=== PATIENT | female | born 1935 | race Caucasian/White ===

== ENCOUNTER 2017-12-17 22:28 | Emergency (ER) | payer OTHER ==
[2017-12-18] MEDS ORDERED: LEVALBUTEROL 1.25 MG/3 ML NEB ONE (00:45)
[2017-12-18] MEDS ORDERED: NA CHLORIDE 0.9% 1,000 ML ONE (00:45)
[2017-12-18] MEDS ORDERED: METHYLPREDNISOLONE 125 MG INJ ONE (00:45)
[2017-12-18] MEDS ORDERED: IPRATROPIUM BROM 0.5MG/2.5ML ONE (00:45)
[2017-12-18 01:21] LABS: Absolute Monocytes 0.4 K/uL (0.1-1.3); Absolute Neutrophil 6.8 K/uL (1.8-8.0); Basophils % 0.1 % (0-1.3); Hematocrit 38.4 % (36.0-45.0); Lymphocytes % 12.6 % (15.3-44.8); MCH 32.1 pg (27.0-35.0); MCV 96.5 fL (80-100); MPV 7.5 fL (7.6-11.3); Monocytes % 4.4 % (3.3-12.3); RBC Red Blood Cell Count 3.98 M/uL (3.86-4.86)
[2017-12-18 01:27] LABS: Protime INR 1.05
[2017-12-18 01:43] LABS: Bicarbonate 23 mEq/L (21-31); Glucose Level 137 mg/dL (65-120); Sodium Level 131 mEq/L (135-145)
[2017-12-18 01:49] LABS: ALT/SGPT 27 IU/L (10-60); AST/SGOT 27 IU/L (10-42); Albumin 4.3 g/dL (3.2-5.5); Alkaline Phosphatase 93 IU/L (42-121); BUN Blood Urea Nitrogen 23 mg/dL (6-20); Bilirubin Direct 0.1 mg/dL (0-0.2); Bilirubin Total 0.7 mg/dL (0.3-1.2); CKMB Creatine Kinase MB 2.3 ng/ml (0.3-4.0); Creatine Phosphokinase 98 IU/L (22-269); Glomerular Filtration Rate 44 mL/min (=/>90); Magnesium 2.3 mg/dL (1.8-2.5); Protein, Total 7.5 g/dL (6.0-8.3)
[2017-12-18 01:59] LABS: Alcohol Serum/Plasma < 10 mg/dl; Salicylates Level < 4.0 mg/dl (<30)
[2017-12-18 02:13] LABS: Barbiturates NEGATIVE; Benzodiazepines NEGATIVE; Cocaine NEGATIVE; METHAMPHETAM NEGATIVE; Opiates POSITIVE; Phencyclidine NEGATIVE; THC Cannibis NEGATIVE
--- NOTE | 2017-12-18 02:30 | ER ---
Nurse's Notes [facility] Name: Ellie Barnhart Age: 82 yrs Sex: Female : 1935 Arrival Date: 12/17/2017 Time: 22:31 Bed 26 Private MD: Diagnosis: Weakness;Bronchitis, not specified as acute or chronic;Tobacco use;Unspecified kidney failure Presentation: 12/17 22:35 Presenting complaint: EMS states: "Patient has been seeing worms under her skin. ao Patient has been checked and no worms had been found. Patient has a history of mental problem and was here before. Transition of care: patient was not received from another setting of care. Onset of symptoms is unknown. Care prior to arrival: None. 22:35 Method Of Arrival: EMS: [facility] ao 22:35 Acuity: HATTIE 2 ao Historical: - Allergies: 22:49 No Known Allergies; ao - Home Meds: 22:49 alprazolam 1 mg Oral tab 1 tab twice a day [Active]; Aspir-81 81 mg Oral TbEC 1 tab ao once daily [Active]; calcium carbonate 600 mg (1,500 mg) Oral tab [Active]; citalopram 10 mg tab 1 tab once daily [Active]; donepezil 5 mg Oral tab 1 tab once daily [Active]; clopidogrel 75 mg Oral tab 1 tab once daily [Active]; gabapentin 100 mg Oral cap [Active]; garlic 1 mg Oral cap [Active]; omeprazole 40 mg Oral cpDR 1 cap once daily [Active]; simvastatin 20 mg Oral tab 1 tab once daily [Active]; Viberzi 75 mg Oral tab three times a day [Active]; Mucus Relief 400 mg Oral tab 1 tab every 4 hours [Active]; Vitamin D3 Complete 18 mg iron-800 mcg-150 mg Oral tab [Active]; - PMHx: 22:49 ataxic gait; Dementia; Hyperlipidemia; Hypertension; ao - PSHx: 22:49 Unable to obtain; ao - Immunization history:: Adult Immunizations unknown. - Social history:: Smoking status: unknown. - Family history:: not pertinent. Screenin:49 Abuse screen: Denies threats or abuse. Denies injuries from another. Nutritional ao screening: No deficits noted. Tuberculosis screening: No symptoms or risk factors identified. Fall Risk No fall in past 12 months (0 pts). Secondary diagnosis (15 points). Assessment: 22:35 General: Appears in no apparent distress. comfortable, Behavior is inappropriate for ao age. Pain: Denies pain. Neuro: Level of Consciousness is awake, alert, obeys commands, Oriented to person, place. Cardiovascular: Denies chest pain, shortness of breath, Heart tones S1 S2. Respiratory: Airway is patent Respiratory effort is even, unlabored, Respiratory pattern is regular, symmetrical. GI: Abdomen is non-distended. : No signs and/or symptoms were reported regarding the genitourinary system. EENT: No signs and/or symptoms were reported regarding the EENT system. Derm: No signs and/or symptoms reported regarding the dermatologic system. Musculoskeletal: No signs and/or symptoms reported regarding the musculoskeletal system. 23:26 Reassessment: Spoke to Alanis who claims she is the granddaughter. Alanis left her number ao as [phone]. Alanis liven in [place] and would not be able to come to see the patient. Alanis proved me with Ulisess who is patient's son and live in the area. His phone number is [phone]. 12/18 00:30 Reassessment: Patient appears in no apparent distress at this time. No changes from ao previously documented assessment. Patient and/or family updated on plan of care and expected duration. Pain level reassessed. 01:21 Reassessment: Patient appears in no apparent distress at this time. Patient and/or ao family updated on plan of care and expected duration. Pain level reassessed. Patient currently getting a breathing treatment. 02:30 Reassessment: Patient appears in no apparent distress at this time. Patient and/or ao family updated on plan of care and expected duration. Pain level reassessed. 02:30 Reassessment: Patient appears in no apparent distress at this time. Patient and/or ao family updated on plan of care and expected duration. Pain level reassessed. Waiting on son to get patient for discharge. 02:50 Reassessment: Called Isak who is patient's son and stated that he will pick patient in ao about 30 minutes. Vital Signs: 12/17 22:38 BP 106 / 79; Pulse 80; Resp 18; Temp 98.1; Pulse Ox 96% on R/A; Weight 45.36 kg (R); ao Height 5 ft. 5 in. (165.10 cm) (R); Pain 0/10; 23:37 BP 104 / 78; Pulse 82; Resp 16; Pulse Ox 97% on R/A; Pain 0/10; ao 0412 00:30 BP 106 / 74; Pulse 82; Resp 16; Pulse Ox 98% on R/A; Pain 0/10; ao 01:23 BP 102 / 72; Pulse 82; Resp 16; Pulse Ox 100% on Nebulizer Mask; ao 02:30 BP 108 / 80; Pulse 76; Resp 16; Pulse Ox 98% on R/A; Pain 0/10; ao 12/17 22:38 Body Mass Index 16.64 (45.36 kg, 165.10 cm) ao ED Course: 12/17 22:31 Patient arrived in ED. em1 22:38 Triage completed. ao 22:38 Arm band placed on right wrist. Patient placed in an exam room, on a stretcher, on ao pulse oximetry. 22:49 Patient has correct armband on for positive identification. Pulse ox on. NIBP on. ao 23:26 Luis Antonio Talbot, RN is Primary Nurse. ao 12/18 00:10 Eusebio Magallon MD is Attending Physician. nayan 00:20 Inserted saline lock: 20 gauge in right forearm, using aseptic technique. ao 00:52 X-ray completed. Portable x-ray completed in exam room. Patient tolerated procedure kw well. 00:53 XRAY Chest (1 view) In Process Unspecified. EDMS 02:30 Per Roe MD is Referral Physician. nayan 03:55 No provider procedures requiring assistance completed. IV discontinued, intact, ao bleeding controlled, No redness/swelling at site. Pressure dressing applied. Administered Medications: 00:45 Drug: Xopenex 2.5 mg Route: Inhalation; ao 03:04 Follow up: Response: No adverse reaction ao 00:45 Drug: AtroVENT Aerosol 0.5 mg Route: Inhalation; ao 03:04 Follow up: Response: No adverse reaction ao 00:55 Drug: NS 0.9% 1000 ml Route: IV; Rate: 125 ml/hr; Site: right forearm; ao 03:00 Follow up: IV Status: Completed infusion; IV Intake: 1000ml ao 03:05 Follow up: Response: No adverse reaction ao 00:55 Drug: SOLU-Medrol 125 mg Route: IVP; Site: right forearm; ao 03:04 Follow up: Response: No adverse reaction ao Intake: 03:00 IV: 1000ml; Total: 1000ml. ao Outcome: 02:29 Discharge ordered by . nayan 03:55 Discharged to home via wheelchair. ao 03:55 Condition: stable 03:55 Discharge instructions given to patient, roll bucker, Instructed on discharge instructions, follow up and referral plans. Demonstrated understanding of instructions, follow-up care, medications, Prescriptions given X 3. 03:56 Patient left the ED. ao Signatures: Dispatcher [employer] EDEusebio Cyr MD MD cha Martinez, Delta em1 Sirena Mendez Alex, RN RN ao Corrections: (The following items were deleted from the chart) 01:22 04/11 23:37 Reassessment: Patient appears in no apparent distress at this time. No ao changes from previously documented assessment. Patient and/or family updated on plan of care and expected duration. Pain level reassessed. ao
--- NOTE | 2017-12-18 02:30 | EDPHYS ---
Physician Documentation [facility] Name: Ellie Barnhart Age: 82 yrs Sex: Female : 1935 Arrival Date: 12/17/2017 Time: 22:31 Bed 26 Private MD: ED Physician Eusebio Magallon HPI: 12/18 00:16 This 82 yrs old Female presents to ER via EMS with complaints of ams, cough nayan and worms under skin. 00:16 The patient has shortness of breath with light activity. Onset: The symptoms/episode nayan began/occurred 2 day(s) ago. Duration: The symptoms are continuous, and are unchanged since they started. The patient's shortness of breath has no apparent modifying factors. dementia, seeing worms. The patient presents with trouble concentrating. Possible causes: unknown. Severity of symptoms: At their worst the symptoms were mild in the emergency department the symptoms are unchanged. Historical: - Allergies: 12/17 22:49 No Known Allergies; ao - Home Meds: 22:49 alprazolam 1 mg Oral tab 1 tab twice a day [Active]; Aspir-81 81 mg Oral TbEC 1 tab ao once daily [Active]; calcium carbonate 600 mg (1,500 mg) Oral tab [Active]; citalopram 10 mg tab 1 tab once daily [Active]; donepezil 5 mg Oral tab 1 tab once daily [Active]; clopidogrel 75 mg Oral tab 1 tab once daily [Active]; gabapentin 100 mg Oral cap [Active]; garlic 1 mg Oral cap [Active]; omeprazole 40 mg Oral cpDR 1 cap once daily [Active]; simvastatin 20 mg Oral tab 1 tab once daily [Active]; Viberzi 75 mg Oral tab three times a day [Active]; Mucus Relief 400 mg Oral tab 1 tab every 4 hours [Active]; Vitamin D3 Complete 18 mg iron-800 mcg-150 mg Oral tab [Active]; - PMHx: 22:49 ataxic gait; Dementia; Hyperlipidemia; Hypertension; ao - PSHx: 22:49 Unable to obtain; ao - Immunization history:: Adult Immunizations unknown. - Social history:: Smoking status: unknown. - Family history:: not pertinent. ROS: 12/18 00:16 Constitutional: Negative for fever, chills, and weight loss, Eyes: Negative for injury, nayan pain, redness, and discharge, ENT: Negative for injury, pain, and discharge, Neck: Negative for injury, pain, and swelling, Cardiovascular: Negative for chest pain, palpitations, and edema, Abdomen/GI: Negative for abdominal pain, nausea, vomiting, diarrhea, and constipation, Back: Negative for injury and pain, : Negative for injury, bleeding, discharge, and swelling, MS/Extremity: Negative for injury and deformity, Skin: Negative for injury, rash, and discoloration, Neuro: Negative for headache, weakness, numbness, tingling, and seizure. Respiratory: Positive for cough, wheezing, expiratory. Psych: Positive for visual hallucinations. Exam: 00:16 Constitutional: This is a well developed, well nourished patient who is awake, alert, nayan and in no acute distress. Head/Face: Normocephalic, atraumatic. Eyes: Pupils equal round and reactive to light, extra-ocular motions intact. Lids and lashes normal. Conjunctiva and sclera are non-icteric and not injected. Cornea within normal limits. Periorbital areas with no swelling, redness, or edema. ENT: Nares patent. No nasal discharge, no septal abnormalities noted. Tympanic membranes are normal and external auditory canals are clear. Oropharynx with no redness, swelling, or masses, exudates, or evidence of obstruction, uvula midline. Mucous membranes moist. Neck: Trachea midline, no thyromegaly or masses palpated, and no cervical lymphadenopathy. Supple, full range of motion without nuchal rigidity, or vertebral point tenderness. No Meningismus. Chest/axilla: Normal chest wall appearance and motion. Nontender with no deformity. No lesions are appreciated. Cardiovascular: Regular rate and rhythm with a normal S1 and S2. No gallops, murmurs, or rubs. Normal PMI, no JVD. No pulse deficits. Abdomen/GI: Soft, non-tender, with normal bowel sounds. No distension or tympany. No guarding or rebound. No evidence of tenderness throughout. Back: No spinal tenderness. No costovertebral tenderness. Full range of motion. Female : Normal external genitalia. Skin: Warm, dry with normal turgor. Normal color with no rashes, no lesions, and no evidence of cellulitis. MS/ Extremity: Pulses equal, no cyanosis. Neurovascular intact. Full, normal range of motion. 00:16 Respiratory: the patient does not display signs of respiratory distress, Respirations: labored breathing, that is mild, Breath sounds: decreased breath sounds, rhonchi, wheezing: expiratory 00:16 Neuro: Orientation: appropriate for stated age, Mentation: appropriate for stated age, nayan no acute changes, Memory: immediate memory is impaired, remote memory is impaired, recent memory the patient can't recall what they had for dinner last night, Cerebellar function: unable to test, Motor: moves all fours, Sensation: no obvious gross deficits, appropriate no acute changes, Gait: not tested. Vital Signs: 12/17 22:38 BP 106 / 79; Pulse 80; Resp 18; Temp 98.1; Pulse Ox 96% on R/A; Weight 45.36 kg (R); ao Height 5 ft. 5 in. (165.10 cm) (R); Pain 0/10; 23:37 BP 104 / 78; Pulse 82; Resp 16; Pulse Ox 97% on R/A; Pain 0/10; ao 12/18 00:30 BP 106 / 74; Pulse 82; Resp 16; Pulse Ox 98% on R/A; Pain 0/10; ao 01:23 BP 102 / 72; Pulse 82; Resp 16; Pulse Ox 100% on Nebulizer Mask; ao 02:30 BP 108 / 80; Pulse 76; Resp 16; Pulse Ox 98% on R/A; Pain 0/10; ao 12/17 22:38 Body Mass Index 16.64 (45.36 kg, 165.10 cm) ao MDM: 00:10 Patient medically screened. [facility] 00:16 Data reviewed: vital signs, nurses notes, lab test result(s), EKG, radiologic studies, nayan plain films. 12/18 00:23 Order name: Basic Metabolic Panel; Complete Time: 02:24 [facility] 12/18 00:23 Order name: BNP; Complete Time: 02:24 nayan 12/18 00:23 Order name: CBC with Diff; Complete Time: 01:36 [facility] 12/18 00:23 Order name: Ckmb; Complete Time: 02:24 [facility] 12/18 00:23 Order name: CPK; Complete Time: 02:24 [facility] 12/18 00:23 Order name: LFT's; Complete Time: 02:24 [facility] 12/18 00:23 Order name: Magnesium; Complete Time: 02:24 [facility] 12/19 99:23 Order name: PT-INR; Complete Time: 02:24 [facility] 12/19 99:23 Order name: Ptt, Activated; Complete Time: 02:24 [facility] 12/19 99:23 Order name: Troponin (emerg Dept Use Only); Complete Time: 02:24 [facility] 12/19 99:23 Order name: Acetaminophen; Complete Time: 02:24 [facility] 12/19 99:23 Order name: ETOH Level; Complete Time: 02:24 [facility] 12/19 99:23 Order name: Salicylate; Complete Time: 02:24 [facility] 12/19 99:23 Order name: Urine Drug Screen 12/18: Order name: XRAY Chest (1 view) 12/18: Order name: EKG; Complete Time: 00:28 [facility] 12/19 99:23 Order name: Cardiac monitoring; Complete Time: 01:20 [facility] 12/19 99:23 Order name: EKG - Nurse/Tech; Complete Time: 03:01 [facility] 12/19 99:23 Order name: IV Saline Lock; Complete Time: 01:20 [facility] 12/18 00:23 Order name: Labs collected and sent; Complete Time: 01:20 [facility] 12/18 00:23 Order name: O2 Per Protocol; Complete Time: 01:20 [facility] 12/18 00:23 Order name: O2 Sat Monitoring; Complete Time: 01:21 [facility] 12/18 00:23 Order name: Urine Dipstick-Ancillary (obtain specimen); Complete Time: 02:16 [facility] 12/18 02:17 Order name: Urine Dipstick--Ancillary (enter results) em1 Administered Medications: 00:45 Drug: Xopenex 2.5 mg Route: Inhalation; ao 03:04 Follow up: Response: No adverse reaction ao 00:45 Drug: AtroVENT Aerosol 0.5 mg Route: Inhalation; ao 03:04 Follow up: Response: No adverse reaction ao 00:55 Drug: NS 0.9% 1000 ml Route: IV; Rate: 125 ml/hr; Site: right forearm; ao 03:00 Follow up: IV Status: Completed infusion; IV Intake: 1000ml ao 03:05 Follow up: Response: No adverse reaction ao 00:55 Drug: SOLU-Medrol 125 mg Route: IVP; Site: right forearm; ao 03:04 Follow up: Response: No adverse reaction ao Disposition: 12/18/17 02:29 Discharged to Home. Impression: Weakness, Bronchitis, not specified as acute or chronic, Tobacco use, Unspecified kidney failure. - Condition is Stable. - Discharge Instructions: Acute Bronchitis, How to Use an Inhaler, Smoking Cessation, Smoking Hazards, Upper Respiratory Infection, Adult, Weakness, Smoking Cessation, Tips For Success, Weakness, [id number]. - Prescriptions for Zithromax Z- [place] 250 mg Oral Tablet - take 1 tablet by ORAL route as directed for 5 days Day 1 - take two (2) tablets one time. Day 2, 3, 4 , 5 take one (1) tablet once daily.; 6 tablet. Medrol ([place]) 4 mg Oral Tablets, Dose Pack - take 1 tablet by ORAL route as directed - follow package instructions; 1 packet. Albuterol Sulfate 90 mcg/actuation - inhale 1-2 puff by INHALATION route every 4-6 hours; 1 Inhaler. - Medication Reconciliation Form, Thank You Letter, Antibiotic Education, Prescription Opioid Use form. - Follow up: Private Physician; When: 2 - 3 days; Reason: Recheck today's complaints, Continuance of care, Re-evaluation by your physician. Follow up: Per Roe MD; When: 2 - 3 days; Reason: Recheck today's complaints, Re-evaluation by your physician. - Problem is new. - Symptoms have improved. Signatures: Dispatcher [employer] Eusebio Mack MD MD cha Ortiz, Alex, RN RN ao
[2017-12-18 03:03] LABS: Urine Blood NEGATIVE (NEG); Urine Glucose NEGATIVE (NEG); Urine Protein 1+ (NEG); Urine Specific Gravity >1.030 (1.005-1.030)
[2017-12-18 04:01] VITALS: TEMP 98.1
[2017-12-18 04:05] VITALS: BP 108/80; O2SAT 98
--- NOTE | 2017-12-18 07:00 | EKG ---
Test Date: 2017-12-18 Test Time: 02:52:44 Pharmacy Specialist: ASHLY MEASUREMENT RESULTS: Intervals: Rate: 77 WI: 140 QRSD: 72 QT: 386 QTc: 436 [place]: P: 84 WI: 140 QRS: 80 T: 76 INTERPRETIVE STATEMENTS: Normal sinus rhythm Normal ECG Compared to ECG 01/03/2017 11:44:52 No significant changes Electronically Signed On 12-18-17 06:59:57 CDT by Álvaro Orellana
--- NOTE | 2017-12-18 08:09 | RAD REPORT ---
EXAM DESCRIPTION: Magy Single View12/18/2017 12:54 am CLINICAL HISTORY: Cough COMPARISON: February 2017 FINDINGS: The lungs are hyperaerated. A calcified granuloma is present within the right lung base. The lungs appear clear of acute infiltrate. The heart is normal size IMPRESSION: COPD without visualization of an acute abnormality
--- NOTE | 2017-12-18 15:31 | EKG ---
Test Date: 2017-12-18 Test Time: 02:56:00 Hotel Breakfast Attendant: ASHLY MEASUREMENT RESULTS: Intervals: Rate: 73 TX: 138 QRSD: 72 QT: 394 QTc: 434 [place]: P: 85 TX: 138 QRS: 82 T: 84 INTERPRETIVE STATEMENTS: Normal sinus rhythm Normal ECG Compared to ECG 12/18/2017 02:52:44 No significant changes Electronically Signed On 12-18-17 15:28:59 CDT by Adam Messer
== END 2017-12-18 03:56 | disposition home or self-care (01) ==
LOC: ER 22:28
DX: J40 Bronchitis, not specified as acute or chronic (principal); N19 Unspecified kidney failure; I10 Essential (primary) hypertension; E78.5 Hyperlipidemia, unspecified; F03.90 Unspecified dementia, unspecified severity, without behavioral disturbance, psychotic disturbance, mood disturbance, and anxiety; Z72.0 Tobacco use
CPT/HCPCS: 36415; 71045; 80048; 80076; 80307 ×8; 80320; 80329 ×2; 81003; 82550; 82553; 83735; 83880; 84484; 85025; 85610; 85730; 93005 ×2; 96361; 96374; 99284; J2930; J7030

== ENCOUNTER 2018-05-01 03:41 | Emergency (ER) | payer OTHER ==
[2018-05-01] MEDS ORDERED: LIDOCAINE 1% W/EPI 1:100,000 MDV 50 ML VIAL ONE (04:17)
[2018-05-01] MEDS ORDERED: TETANUS & DIPHTHERIA TOX,ADULT 0.5 ML VIAL ONE (04:18)
--- NOTE | 2018-05-01 05:23 | ER ---
Nurse's Notes [facility] Name: Ellie Barnhart Age: 83 yrs Sex: Female : 1935 Arrival Date: 05/01/2018 Time: 03:42 Bed 17 Private MD: Diagnosis: Laceration without foreign body of other part of head Presentation: 05/01 03:55 Presenting complaint: Patient states: Pt states she fell out of bed and hit her head, ea denies LOC. Daughter reports "goose egg on the back of the head and a cut". Transition of care: patient was not received from another setting of care. Onset of symptoms was May 01, 2018. Risk Assessment: Do you want to hurt yourself or someone else? Patient reports no desire to harm self or others. Initial Sepsis Screen: Does the patient meet any 2 criteria? No. Patient's initial sepsis screen is negative. Does the patient have a suspected source of infection? No. Patient's initial sepsis screen is negative. Care prior to arrival: daughter states "we put pressure on the back of her head to stop the bleeding". 03:55 Method Of Arrival: Wheelchair ea 03:55 Acuity: HATTIE 3 ea 03:55 Mechanism of Injury: Fall bed onto floor. Trauma event details: Injury occurred in the [facility], Injury occurred: at home. Injury occurred: May 01, 2018 Injury occurred at: 03:00. Triage Assessment: 04:01 General: Appears in no apparent distress. Behavior is calm, cooperative, appropriate ea for age. Pain: Denies pain. Neuro: Level of Consciousness is awake, alert, obeys commands, Oriented to person, place, time, situation. Cardiovascular: Heart tones S1 S2 present Patient's skin is warm and dry. Respiratory: Airway is patent Respiratory effort is even, unlabored, Respiratory pattern is regular, symmetrical, Breath sounds are clear bilaterally. GI: No signs and/or symptoms were reported involving the gastrointestinal system. Bowel sounds present X 4 quads. : No signs and/or symptoms were reported regarding the genitourinary system. Derm: Skin is pink, warm \\T\\ dry. Musculoskeletal: Circulation, motion, and sensation intact. Injury Description: Laceration sustained to left side of the back of head is 0.5 to 2.5 cm long, was sustained 30-60 minutes ago. a small amount of bleeding noted at this time. Trauma Activation: Alert Physician: ED Physician; Name: ; Notified At: ; Arrived At: Physician: General Surgeon; Name: ; Notified At: ; Arrived At: Physician: Radiology; Name: ; Notified At: ; Arrived At: Physician: Respiratory; Name: ; Notified At: ; Arrived At: Physician: Lab; Name: ; Notified At: ; Arrived At: Historical: - Allergies: 03:55 Codeine; ea - Home Meds: 03:54 Vitamin D3 Complete 18 mg iron-800 mcg-150 mg Oral tab [Active]; Viberzi 75 mg Oral tab ea three times a day [Active]; clopidogrel 75 mg Oral tab 1 tab once daily [Active]; alprazolam 1 mg Oral tab 1 tab twice a day [Active]; Aspir-81 81 mg Oral TbEC 1 tab once daily [Active]; donepezil 5 mg Oral tab 1 tab once daily [Active]; citalopram 10 mg tab 1 tab once daily [Active]; simvastatin 20 mg Oral tab 1 tab once daily [Active]; omeprazole 40 mg Oral cpDR 1 cap once daily [Active]; Mucus Relief 400 mg Oral tab 1 tab every 4 hours [Active]; calcium carbonate 600 mg (1,500 mg) Oral tab [Active]; gabapentin 100 mg Oral cap [Active]; garlic 1 mg Oral cap [Active]; - PMHx: 03:54 Hypertension; Hyperlipidemia; Dementia; ataxic gait; ea - PSHx: 03:54 Unable to obtain; ea - Immunization history:: Adult Immunizations up to date. - Social history:: Smoking status: Patient/guardian denies using tobacco. - Immunization history: Last tetanus immunization: unknown. - Ebola Screening: : No symptoms or risks identified at this time. Screenin:55 Abuse screen: Denies threats or abuse. Nutritional screening: No deficits noted. ea Tuberculosis screening: No symptoms or risk factors identified. Fall Risk Fall in past 12 months (25 points). Primary Survey: 03:55 Breathing/Chest: Respiratory pattern: regular, Respiratory effort: spontaneous, ea unlabored, Breath sounds: clear, bilaterally. Chest inspection: symmetrical rise and fall of the chest. Circulation: Heart tones present. Disability Alert. 04:55 Reassessment Airway Airway Patent Breathing/Chest Respiratory pattern Regular ea Respiratory effort Spontaneous Unlabored Circulation Color [place] Temperature Warm. Secondary Survey: 03:55 Gastrointestinal: Abdomen is soft, Bowel sounds present in all quadrants. : No signs ea and/or symptoms were reported regarding the genitourinary system. Musculoskeletal: Circulation, motion, and sensation intact. Injury Description: Laceration sustained to left side of the back of head is 0.5 to 2.5 cm long, was sustained 30-60 minutes ago. Assessment: 03:55 General: Appears in no apparent distress. Behavior is calm, cooperative, appropriate ea for age. Pain: Denies pain. Neuro: Level of Consciousness is awake, alert, obeys commands, Oriented to person, place, time, situation. EENT: No signs and/or symptoms were reported regarding the EENT system. Cardiovascular: Heart tones S1 S2 present Patient's skin is warm and dry. Respiratory: Airway is patent Respiratory effort is even, unlabored, Respiratory pattern is regular, symmetrical, Breath sounds are clear bilaterally. GI: No signs and/or symptoms were reported involving the gastrointestinal system. Abdomen is non-distended, Bowel sounds present X 4 quads. Derm: Skin is pink, warm \\T\\ dry. 04:55 Reassessment: Patient and/or family updated on plan of care and expected duration. Pain ea level reassessed. Patient is alert, oriented x 3, equal unlabored respirations, skin warm/dry/pink. 05:32 Reassessment: Patient and/or family updated on plan of care and expected duration. Pain ea level reassessed. Patient is alert, oriented x 3, equal unlabored respirations, skin warm/dry/pink. Discharge instructions given to patient and pt's daughter both verbalized the understanding of discharge instructions. Vital Signs: 04:03 BP 115 / 68; Pulse 67; Resp 16; Temp 98; Pulse Ox 97% ; Weight 45.36 kg; Height 5 ft. 5 ea in. (165.10 cm); Pain 0/10; 05:16 BP 108 / 65; Pulse 70; Resp 18; Temp 97.8(O); Pulse Ox 98% ; Pain 0/10; ea 04:03 Body Mass Index 16.64 (45.36 kg, 165.10 cm) ea [place] Coma Score: 03:55 Eye Response: spontaneous(4). Verbal Response: oriented(5). Motor Response: obeys ea commands(6). Total: 15. 05:16 Eye Response: spontaneous(4). Verbal Response: oriented(5). Motor Response: obeys ea commands(6). Total: 15. Trauma Score (Adult): 03:55 Eye Response: spontaneous(1); Verbal Response: oriented(1); Motor Response: obeys ea commands(2); Systolic BP: > 89 mm Hg(4); Respiratory Rate: 10 to 29 per min(4); [place] Score: 15; Trauma Score: 12 ED Course: 03:42 Patient arrived in ED. ds1 03:51 Alison Olivarez, ALBARO is Primary Nurse. ea 03:55 Arm band placed on right wrist. ea 03:55 Patient has correct armband on for positive identification. Placed in gown. Bed in low ea position. Call light in reach. Side rails up X2. 03:55 Patient maintains SpO2 saturation greater than 95% on room air. ea 03:55 Thermoregulation: warm blanket given to patient. ea 04:00 Fabrizio Bueno MD is Attending Physician. gs 04:01 Triage completed. ea 04:[address] via stretcher. kw1 04:24 CT Head Brain wo Cont In Process Unspecified. EDMS 04:25 CT completed. Patient tolerated procedure well. Patient moved back from CT. kw1 05:34 Assist provider with laceration repair on left side of the back of head that was ea between 2.6 to 7.5 cm using sutures. Set up tray. Performed by Fabrizio Bueno MD Dressed with 4X4s, Patient tolerated well. Patient did not have IV access during this emergency room visit. Administered Medications: 05:13 Drug: Lidocaine-Epinephrine -1%: (1:100,000) 5 ml {Note: administered by physician .} ea Volume: 20 ml; Route: Infiltration; 05:13 Drug: Tetanus-Diphtheria Toxoid Adult 0.5 ml {Counter Roller: [employer]. Exp: ea 05/28/2019. Lot #: [id number]. } Route: IM; Site: right deltoid; 05:35 Follow up: Response: No adverse reaction ea Intake: 05:36 PO: 0ml; Total: 0ml. ea Outcome: 05:22 Discharge ordered by . gs 05:35 Discharged to home via wheelchair, with family. ea 05:35 Condition: improved 05:35 Discharge instructions given to patient, family, Instructed on discharge instructions, follow up and referral plans. Demonstrated understanding of instructions, follow-up care. 05:36 Patient's length of stay was not longer than 2 hours. jose 05:36 Patient left the ED. jose Signatures: Dispatcher [employer] EDKY Harmony Schulte Alison Mendez RN RN ea Starr, Gregory, MD MD gs Wilhelm, Kimberly kw1 Corrections: (The following items were deleted from the chart) 05:36 05:16 BP 108 / 65; Pulse 70bpm; Resp 18bpm; Pulse Ox 98%; Pain 0/10; ea jose
--- NOTE | 2018-05-01 05:23 | EDPHYS ---
Physician Documentation [facility] Name: Ellie Barnhart Age: 83 yrs Sex: Female : 1935 Arrival Date: 05/01/2018 Time: 03:42 Bed 17 Private MD: ED Physician Fabrizio Bueno HPI: 05/01 05:19 This 83 yrs old Female presents to ER via Wheelchair with complaints of Fall gs Injury. 05:19 Details of fall: The patient fell from a supine position, out of bed. Onset: The gs symptoms/episode began/occurred acutely, just prior to arrival. Associated injuries: The patient sustained injury to the head, laceration, 3 cm(s), of the left side of the back of head. Severity of symptoms: At their worst the symptoms were moderate, in the emergency department the symptoms are unchanged. The patient has not experienced similar symptoms in the past. The patient has not recently seen a physician. no loc. Historical: - Allergies: 03:55 Codeine; ea - Home Meds: 03:54 Vitamin D3 Complete 18 mg iron-800 mcg-150 mg Oral tab [Active]; Viberzi 75 mg Oral tab ea three times a day [Active]; clopidogrel 75 mg Oral tab 1 tab once daily [Active]; alprazolam 1 mg Oral tab 1 tab twice a day [Active]; Aspir-81 81 mg Oral TbEC 1 tab once daily [Active]; donepezil 5 mg Oral tab 1 tab once daily [Active]; citalopram 10 mg tab 1 tab once daily [Active]; simvastatin 20 mg Oral tab 1 tab once daily [Active]; omeprazole 40 mg Oral cpDR 1 cap once daily [Active]; Mucus Relief 400 mg Oral tab 1 tab every 4 hours [Active]; calcium carbonate 600 mg (1,500 mg) Oral tab [Active]; gabapentin 100 mg Oral cap [Active]; garlic 1 mg Oral cap [Active]; - PMHx: 03:54 Hypertension; Hyperlipidemia; Dementia; ataxic gait; ea - PSHx: 03:54 Unable to obtain; ea - Immunization history:: Adult Immunizations up to date. - Social history:: Smoking status: Patient/guardian denies using tobacco. - Immunization history: Last tetanus immunization: unknown. - Ebola Screening: : No symptoms or risks identified at this time. ROS: 05:19 All other systems are negative. gs Exam: 05:19 Eyes: Pupils equal round and reactive to light, extra-ocular motions intact. Lids and gs lashes normal. Conjunctiva and sclera are non-icteric and not injected. Cornea within normal limits. Periorbital areas with no swelling, redness, or edema. ENT: Nares patent. No nasal discharge, no septal abnormalities noted. Tympanic membranes are normal and external auditory canals are clear. Oropharynx with no redness, swelling, or masses, exudates, or evidence of obstruction, uvula midline. Mucous membranes moist. Neck: Trachea midline, no thyromegaly or masses palpated, and no cervical lymphadenopathy. Supple, full range of motion without nuchal rigidity, or vertebral point tenderness. No Meningismus. Chest/axilla: Normal chest wall appearance and motion. Nontender with no deformity. No lesions are appreciated. Cardiovascular: Regular rate and rhythm with a normal S1 and S2. No gallops, murmurs, or rubs. Normal PMI, no JVD. No pulse deficits. Respiratory: Lungs have equal breath sounds bilaterally, clear to auscultation and percussion. No rales, rhonchi or wheezes noted. No increased work of breathing, no retractions or nasal flaring. Abdomen/GI: Soft, non-tender, with normal bowel sounds. No distension or tympany. No guarding or rebound. No evidence of tenderness throughout. Back: No spinal tenderness. No costovertebral tenderness. Full range of motion. Skin: Warm, dry with normal turgor. Normal color with no rashes, no lesions, and no evidence of cellulitis. MS/ Extremity: Pulses equal, no cyanosis. Neurovascular intact. Full, normal range of motion. Neuro: Awake and alert, GCS 15, oriented to person, place, time, and situation. Cranial nerves II-XII grossly intact. Motor strength 5/5 in all extremities. Sensory grossly intact. Cerebellar exam normal. Normal gait. 05:19 Constitutional: The patient appears alert, awake. 05:19 Head/face: Noted is a laceration(s), that is deep, 3 cm(s), of the left side of the back of head. Vital Signs: 04:03 BP 115 / 68; Pulse 67; Resp 16; Temp 98; Pulse Ox 97% ; Weight 45.36 kg; Height 5 ft. 5 ea in. (165.10 cm); Pain 0/10; 05:16 BP 108 / 65; Pulse 70; Resp 18; Temp 97.8(O); Pulse Ox 98% ; Pain 0/10; ea 04:03 Body Mass Index 16.64 (45.36 kg, 165.10 cm) ea [place] Coma Score: 03:55 Eye Response: spontaneous(4). Verbal Response: oriented(5). Motor Response: obeys ea commands(6). Total: 15. 05:16 Eye Response: spontaneous(4). Verbal Response: oriented(5). Motor Response: obeys ea commands(6). Total: 15. Trauma Score (Adult): 03:55 Eye Response: spontaneous(1); Verbal Response: oriented(1); Motor Response: obeys ea commands(2); Systolic BP: > 89 mm Hg(4); Respiratory Rate: 10 to 29 per min(4); [place] Score: 15; Trauma Score: 12 Laceration: 05:19 Wound Repair of 3cm ( 1.2in ) subcutaneous laceration to left side of the back of head. gs Distal neuro/vascular/tendon intact. Anesthesia: Local anesthetic administered with 5 mls of 1% lidocaine w/ Epi. Wound prep: Simple cleansing with betadine, Wound irrigation with saline. Skin closed with 6 4-0 Prolene using simple sutures and sterile technique. Dressed with pressure dressing. Patient tolerated well. MDM: 04:00 Patient medically screened. gs 05:19 Differential diagnosis: closed head injury, contusion, laceration. Data reviewed: vital gs signs, nurses notes. Response to treatment: the patient's symptoms have markedly improved after treatment. 05/01 04:04 Order name: CT Head Brain wo Cont gs Administered Medications: 05:13 Drug: Lidocaine-Epinephrine -1%: (1:100,000) 5 ml {Note: administered by physician .} ea Volume: 20 ml; Route: Infiltration; 05:13 Drug: Tetanus-Diphtheria Toxoid Adult 0.5 ml {Cryptoanalysis Teacher: [employer]. Exp: ea 05/28/2019. Lot #: [id number]. } Route: IM; Site: right deltoid; 05:35 Follow up: Response: No adverse reaction ea Disposition: 05/01/18 05:22 Discharged to Home. Impression: Laceration without foreign body of other part of head. - Condition is Stable. - Discharge Instructions: Laceration Care, Adult, [id number]. - Medication Reconciliation Form, Thank You Letter, Antibiotic Education, Prescription Opioid Use form. - Follow up: Private Physician; When: 7 - 10 days; Reason: Staple/Suture removal. Signatures: Dispatcher [employer] Alison Benz RN RN ea Starr, Gregory, MD MD gs Corrections: (The following items were deleted from the chart) 05:22 05:22 05/01/2018 05:22 Discharged to Home. Impression: Laceration without foreign body gs of other part of head. Condition is Stable. Forms are Medication Reconciliation Form, Thank You Letter, Antibiotic Education, Prescription Opioid Use. Follow up: Private Physician; When: 2 - 3 days; Reason: Re-evaluation by your physician. 05:36 05:22 05/01/2018 05:22 Discharged to Home. Impression: Laceration without foreign body ea of other part of head. Condition is Stable. Discharge Instructions: Laceration Care, Adult, [id number]. Forms are Medication Reconciliation Form, Thank You Letter, Antibiotic Education, Prescription Opioid Use. Follow up: Private Physician; When: 7 - 10 days; Reason: Staple/Suture removal.
[2018-05-01 05:45] VITALS: BP 108/65; TEMP 97.8; O2SAT 98
--- NOTE | 2018-05-01 09:11 | RAD REPORT ---
EXAM DESCRIPTION: CT - Head Brain Wo Cont - 05/01/2018 5:06 am CLINICAL HISTORY: Head injury status post fall COMPARISON: February 2017 TECHNIQUE: Computed axial tomography of the head was obtained. IV contrast was not requested. A preliminary report was generated by [employer] and reviewed prior to this dictation All CT scans are performed using dose optimization technique as appropriate and may include automated exposure control or mA/KV adjustment according to patient size. FINDINGS: Left parietal scalp swelling is present. An underlying skull fracture is not seen An intracranial bleed is not seen . The ventricles are normal in caliber. No extra-axial fluid collection is noted. Moderate low-density areas within periventricular, deep and subcortical white matter likely represent ischemic changes secondary to small vessel disease. Fluid within the sinuses/ mastoids is not seen. IMPRESSION: No acute intracranial abnormality is seen. If patient's symptoms persist MRI of the bra in would be recommended.
== END 2018-05-01 05:36 | disposition home or self-care (01) ==
LOC: ER 03:41
PROC: 0JQ00ZZ Repair Scalp Subcutaneous Tissue and Fascia, Open Approach (ICD-10-PCS; principal; 2018-05-01)
DX: S01.81XA Laceration without foreign body of other part of head, initial encounter (principal); W06.XXXA Fall from bed, initial encounter; Y92.003 Bedroom of unspecified non-institutional (private) residence as the place of occurrence of the external cause; Z23 Encounter for immunization; I10 Essential (primary) hypertension; E78.5 Hyperlipidemia, unspecified; F03.90 Unspecified dementia, unspecified severity, without behavioral disturbance, psychotic disturbance, mood disturbance, and anxiety; R27.0 Ataxia, unspecified
CPT/HCPCS: 70450; 90714; 99284

== ENCOUNTER 2018-09-10 22:20 | Observation (INO) | payer OTHER ==
[2018-09-10] MEDS ORDERED: NA CHLORIDE 0.9% 1,000 ML ONE (23:01)
[2018-09-10 23:26] LABS: Absolute Lymphocytes (CBC) 1.2 K/uL (0.7-4.9); Absolute Monocytes 0.2 K/uL (0.1-1.3); Absolute Neutrophil 1.7 K/uL (1.8-8.0); Basophils % 0.5 % (0-1.3); Hematocrit 29.9 % (36.0-45.0); Lymphocytes % 37.3 % (15.3-44.8); MPV 7.6 fL (7.6-11.3); Monocytes % 7.1 % (3.3-12.3); Protime INR 1.03; RBC Red Blood Cell Count 3.95 M/uL (3.86-4.86)
[2018-09-10] MEDS ORDERED: METHYLPREDNISOLONE 125 MG INJ ONE (23:35)
[2018-09-10] MEDS ORDERED: AZITHROMYCIN 500 MG/250 ML BAG ONE (23:35)
[2018-09-10] MEDS ORDERED: CEFTRIAXONE/SWI 1gm 1 GM/10 ML SYR ONE (23:35)
[2018-09-10] MEDS ORDERED: ALBUTEROL 2.5 MG/3 ML NEB SOL ONE (23:36)
[2018-09-10] MEDS ORDERED: IPRATROPIUM BROM 0.5MG/2.5ML ONE (23:36)
[2018-09-10] MEDS ORDERED: FAMOTIDINE 20 MG/2 ML VIAL IV ONE (23:37)
[2018-09-10 23:45] LABS: ALT/SGPT 14 U/L (12-78); AST/SGOT 19 U/L (15-37); Albumin 3.8 g/dL (3.4-5.0); Alkaline Phosphatase 110 U/L (45-117); BUN Blood Urea Nitrogen 11 mg/dL (7-18); Bicarbonate 25 mmol/L (21-32); Bilirubin Direct 0.1 mg/dL (0-0.2); Bilirubin Total 0.4 mg/dL (0.2-1.0); Glucose Level 86 mg/dL (74-106); Lipase 106 U/L (73-393); Magnesium 2.3 mg/dL (1.8-2.4); NT PRO-BNP 68 pg/mL (<450); Potassium 4.3 mmol/L (3.5-5.1); Protein, Total 7.3 g/dL (6.4-8.2); Sodium Level 142 mmol/L (136-145); Troponin (Emerg Dept Use Only) < 0.02 ng/mL (0.0-0.045)
--- NOTE | 2018-09-10 23:49 | ER ---
Nurse's Notes [facility] Name: Ellie Barnhart Age: 83 yrs Sex: Female : 1935 Arrival Date: 09/10/2018 Time: 22:22 Bed 7 Private MD: Diagnosis: Chronic obstructive pulmonary disease with (acute) exacerbation;Altered mental status, unspecified;Dementia in other diseases classified elsewhere;Anemia, unspecified Presentation: 09/10 22:29 Presenting complaint: EMS states: "the daughter said the patient has persistent cough ca1 <72 hours. The son maryjo gave 2 tabs of her anti-anxiety medication 2 hours ago, prescribed dose is at 1/2 tab". Transition of care: patient was not received from another setting of care. Onset of symptoms was September 10, 2018. Risk Assessment: Do you want to hurt yourself or someone else? Patient reports no desire to harm self or others. Initial Sepsis Screen: Does the patient meet any 2 criteria? No. Patient's initial sepsis screen is negative. Does the patient have a suspected source of infection? Yes: Productive cough/pneumonia. Care prior to arrival: Glucose check: 90. 22:29 Method Of Arrival: EMS: [facility] ca1 22:29 Acuity: HATTIE 3 ca1 Historical: - Allergies: 22:36 Codeine; ca1 - Home Meds: 09/11 00:29 alprazolam 1 mg Oral tab 1 tab twice a day [Active]; Aspir-81 81 mg Oral TbEC 1 tab ca1 once daily [Active]; calcium carbonate 600 mg (1,500 mg) Oral tab [Active]; citalopram 10 mg tab 1 tab once daily [Active]; clopidogrel 75 mg Oral tab 1 tab once daily [Active]; donepezil 5 mg Oral tab 1 tab once daily [Active]; gabapentin 100 mg Oral cap [Active]; garlic 1 mg Oral cap [Active]; Mucus Relief 400 mg Oral tab 1 tab every 4 hours [Active]; omeprazole 40 mg Oral cpDR 1 cap once daily [Active]; simvastatin 20 mg Oral tab 1 tab once daily [Active]; Viberzi 75 mg Oral tab three times a day [Active]; Vitamin D3 Complete 18 mg iron-800 mcg-150 mg Oral tab [Active]; - PMHx: 09/10 22:36 ataxic gait; Dementia; Hyperlipidemia; Hypertension; ca1 09/11 00:23 COPD; ca1 - Immunization history:: Flu vaccine is up to date. - Social history:: Smoking status: Patient uses tobacco products. - Ebola Screening: : No symptoms or risks identified at this time. - Family history:: not pertinent. Screenin/03 22:36 Abuse screen: Denies threats or abuse. Denies injuries from another. Nutritional ca1 screening: No deficits noted. Tuberculosis screening: No symptoms or risk factors identified. Fall Risk Secondary diagnosis (15 points) dementia, Gait- Weak (10 pts.). Assessment: 22:36 General: Appears in no apparent distress. Behavior is calm, cooperative, drowsy. ca1 General:. Pain: Denies pain. Neuro: Level of Consciousness is awake, alert, obeys commands, Oriented to person, place, time, situation, Furnace Repairer are equal bilaterally Moves all extremities. Speech is normal, Facial symmetry appears normal, Pupils are PERRLA, Intact. Cardiovascular: Heart tones S1 S2 present Capillary refill < 3 seconds Patient's skin is warm and dry. Respiratory: Airway is patent Trachea midline Respiratory effort is even, unlabored, Respiratory pattern is Breath sounds are coarse Denies cough, shortness of breath. GI: Abdomen is flat, non-distended, Bowel sounds present X 4 quads. Abd is soft and non tender X 4 quads. : No signs and/or symptoms were reported regarding the genitourinary system. EENT: No signs and/or symptoms were reported regarding the EENT system. Derm: Skin is intact, is thin, Skin is pink, warm \\T\\ dry. Musculoskeletal: Circulation, motion, and sensation intact. Capillary refill < 3 seconds. 23:00 Reassessment: Patient's daughter, Mague Dejesus, called to give information about lp1 patient; States to call for any further concerns at [phone]. 23:40 Reassessment: Patient appears in no apparent distress at this time. Patient moves ca1 around on bed, complains of being cold. Provided warmed blanket, and a pillow. Repositioned patient comfortably. 09/11 00:32 Reassessment: Patient appears in no apparent distress at this time. Patient appears ca1 confused and restless. Moving around the bed and trying to pull the BP cuff and Pulse Ox sensor. 00:58 Reassessment: Changed room from 219 to 201. ca1 Vital Signs: 09/10 22:29 BP 153 / 92; Pulse 80; Resp 19; Temp 97.9(A); Pulse Ox 96% on R/A; Weight 49.9 kg; ca1 Height 5 ft. 5 in. (165.10 cm); Pain 0/10; 23:40 BP 154 / 73; Pulse 91; Resp 17; Pulse Ox 100% on Nebulizer Mask; ca1 09/11 00:58 BP 122 / 96; Pulse 92; Resp 18; Pulse Ox 95% on R/A; ca1 09/10 22:29 Body Mass Index 18.30 (49.90 kg, 165.10 cm) ca1 ED Course: 09/10 22:22 Patient arrived in ED. lp1 22:22 Eusebio Magallon MD is Attending Physician. nayan 22:29 Alanna Mann, ALBARO is Primary Nurse. ca1 22:29 Arm band placed on right wrist. ca1 22:29 financial developer on. Pulse ox on. NIBP on. ca1 22:29 Warm blanket given. Pillow given. ca1 22:29 No provider procedures requiring assistance completed. Patient admitted, IV remains in ca1 place. 22:33 Triage completed. ca1 22:36 Patient has correct armband on for positive identification. Placed in gown. Bed in low ca1 position. Call light in reach. Side rails up X2. 22:53 XRAY Chest (1 view) In Process Unspecified. EDMS 23:00 Missed attempt(s): 20 gauge in left antecubital area. ca1 23:13 Inserted saline lock: 22 gauge in left forearm, using aseptic technique. Blood ca1 collected. 23:13 First set of blood cultures drawn. ca1 23:28 Second set of blood cultures drawn. ca1 23:47 Gita Jamison MD is Hospitalizing Provider. [facility] 09/11 00:14 Straight cath inserted, using sterile technique, 16 Fr. Specimen obtained. Returned ca1 maria antonia urine. Patient tolerated well. Administered Medications: 09/10 23:15 Drug: NS 0.9% 1000 ml Route: IV; Rate: 125 ml/hr; Site: left forearm; ca1 09/11 01:24 Follow up: Response: No adverse reaction; IV Status: Infusion continued upon admission ca1 09/10 23:15 Drug: SOLU-Medrol 2 mg/kg Route: IVP; Site: left forearm; ca1 09/11 01:23 Follow up: Response: No adverse reaction ca1 09/10 23:15 Drug: Albuterol - atroVENT (3:1) (2.5 mg - 0.5 mg) 3 ml Route: Nebulizer; ca1 09/11 01:22 Follow up: Response: No adverse reaction ca1 09/10 23:17 Drug: Pepcid 20 mg Route: IVP; Site: left forearm; ca1 09/11 01:22 Follow up: Response: No adverse reaction ca1 09/10 23:30 Drug: Rocephin 1 grams Route: IV; Rate: calculated rate; Site: left forearm; ca1 09/11 01:23 Follow up: Response: No adverse reaction; IV Status: Completed infusion ca1 09/10 23:35 Drug: Zithromax 500 mg Route: IVPB; Infused Over: 1 hrs; Site: left forearm; ca1 09/11 01:23 Follow up: Response: No adverse reaction; IV Status: Completed infusion ca1 09/10 23:57 CANCELLED (Duplicate Order): Rocephin - (cefTRIAXone) 1 grams IVPB once over 30 mins; ca1 (mix in 50 mL NS) 09/11 00:11 Not Given (Duplicate Order): NS 0.9% 1000 ml IV at 125 ml/hr continuous nayan Outcome: 09/10 22:29 Admitted to Med/surg accompanied by nurse, accompanied by tech, via stretcher, room ca1 201, with chart, Report called to Beth Mccauley RN Condition: stable Instructed on the need for admit, Demonstrated understanding of instructions. 23:48 Decision to Hospitalize by Provider. [facility] 09/11 01:24 Patient left the ED. ca1 Signatures: Dispatcher [employer] EDEusebio Cyr MD MD cha Pena, Laura, RN RN lp1 Alanna Mann RN RN ca1 Corrections: (The following items were deleted from the chart) 00:01 09/10 23:18 Rocephin 1 grams IV at calculated rate in left forearm ca1 ca1 09/11 01:21 09/10 22:36 Respiratory: Airway is patent Trachea midline Respiratory effort is even, ca1 unlabored, Respiratory pattern is Breath sounds are clear bilaterally. Denies cough, shortness of breath ca1
--- NOTE | 2018-09-10 23:49 | EDPHYS ---
Physician Documentation [facility] Name: Ellie Barnhart Age: 83 yrs Sex: Female : 1935 Arrival Date: 09/10/2018 Time: 22:22 Bed 7 Private MD: ED Physician Eusebio Magallon HPI: 09/10 22:53 This 83 yrs old Female presents to ER via EMS with complaints of ams, xanax nayna overdose. 22:53 The patient has shortness of breath at rest, with light activity. Onset: The nayan symptoms/episode began/occurred 1 day(s) ago. Duration: The symptoms are continuous, and are steadily getting worse. The patient's shortness of breath has no apparent modifying factors. The patient or guardian reports cough, described as mild, described as moderate, difficulty breathing. Associated signs and symptoms: Pertinent positives: productive cough. Historical: - Allergies: 22:36 Codeine; ca1 - Home Meds: 09/11 00:29 alprazolam 1 mg Oral tab 1 tab twice a day [Active]; Aspir-81 81 mg Oral TbEC 1 tab ca1 once daily [Active]; calcium carbonate 600 mg (1,500 mg) Oral tab [Active]; citalopram 10 mg tab 1 tab once daily [Active]; clopidogrel 75 mg Oral tab 1 tab once daily [Active]; donepezil 5 mg Oral tab 1 tab once daily [Active]; gabapentin 100 mg Oral cap [Active]; garlic 1 mg Oral cap [Active]; Mucus Relief 400 mg Oral tab 1 tab every 4 hours [Active]; omeprazole 40 mg Oral cpDR 1 cap once daily [Active]; simvastatin 20 mg Oral tab 1 tab once daily [Active]; Viberzi 75 mg Oral tab three times a day [Active]; Vitamin D3 Complete 18 mg iron-800 mcg-150 mg Oral tab [Active]; - PMHx: 09/10 22:36 ataxic gait; Dementia; Hyperlipidemia; Hypertension; ca1 09/11 00:23 COPD; ca1 - Immunization history:: Flu vaccine is up to date. - Social history:: Smoking status: Patient uses tobacco products. - Ebola Screening: : No symptoms or risks identified at this time. - Family history:: not pertinent. ROS: 09/10 22:53 Constitutional: Negative for fever, chills, and weight loss, Eyes: Negative for injury, nayan pain, redness, and discharge, ENT: Negative for injury, pain, and discharge, Neck: Negative for injury, pain, and swelling, Cardiovascular: Negative for chest pain, palpitations, and edema, Abdomen/GI: Negative for abdominal pain, nausea, vomiting, diarrhea, and constipation, Back: Negative for injury and pain, : Negative for injury, bleeding, discharge, and swelling, MS/Extremity: Negative for injury and deformity, Skin: Negative for injury, rash, and discoloration, Neuro: Negative for headache, weakness, numbness, tingling, and seizure, Psych: Negative for depression, anxiety, suicide ideation, homicidal ideation, and hallucinations, Allergy/Immunology: Negative for hives, rash, and allergies, Endocrine: Negative for neck swelling, polydipsia, polyuria, polyphagia, and marked weight changes, Hematologic/Lymphatic: Negative for swollen nodes, abnormal bleeding, and unusual bruising. Respiratory: Positive for cough, shortness of breath, wheezing, inspiratory, expiratory. Exam: 22:53 Constitutional: This is a well developed, well nourished patient who is awake, alert, nayan and in no acute distress. Head/Face: Normocephalic, atraumatic. Eyes: Pupils equal round and reactive to light, extra-ocular motions intact. Lids and lashes normal. Conjunctiva and sclera are non-icteric and not injected. Cornea within normal limits. Periorbital areas with no swelling, redness, or edema. ENT: Nares patent. No nasal discharge, no septal abnormalities noted. Tympanic membranes are normal and external auditory canals are clear. Oropharynx with no redness, swelling, or masses, exudates, or evidence of obstruction, uvula midline. Mucous membranes moist. Neck: Trachea midline, no thyromegaly or masses palpated, and no cervical lymphadenopathy. Supple, full range of motion without nuchal rigidity, or vertebral point tenderness. No Meningismus. Chest/axilla: Normal chest wall appearance and motion. Nontender with no deformity. No lesions are appreciated. Cardiovascular: Regular rate and rhythm with a normal S1 and S2. No gallops, murmurs, or rubs. Normal PMI, no JVD. No pulse deficits. Abdomen/GI: Soft, non-tender, with normal bowel sounds. No distension or tympany. No guarding or rebound. No evidence of tenderness throughout. Back: No spinal tenderness. No costovertebral tenderness. Full range of motion. Female : Normal external genitalia. Skin: Warm, dry with normal turgor. Normal color with no rashes, no lesions, and no evidence of cellulitis. 22:53 Respiratory: mild respiratory distress is noted, Respirations: labored breathing, that is mild, Breath sounds: decreased breath sounds, rhonchi, Respiratory rate: 19 Vital Signs: 22:29 BP 153 / 92; Pulse 80; Resp 19; Temp 97.9(A); Pulse Ox 96% on R/A; Weight 49.9 kg; ca1 Height 5 ft. 5 in. (165.10 cm); Pain 0/10; 23:40 BP 154 / 73; Pulse 91; Resp 17; Pulse Ox 100% on Nebulizer Mask; [facility] 09/11 00:58 BP 122 / 96; Pulse 92; Resp 18; Pulse Ox 95% on R/A; [facility] 09/10 22:29 Body Mass Index 18.30 (49.90 kg, 165.10 cm) [facility] MDM: 09/10 22:[address] [facility] 22:57 Data reviewed: vital signs, nurses notes, lab test result(s), EKG, radiologic studies, nayan plain films. 09/10 22:42 Order name: Basic Metabolic Panel; Complete Time: 23:46 [facility] 09/10 22:42 Order name: CBC with Diff; Complete Time: 23:46 [facility] 09/10 22:42 Order name: LFT's; Complete Time: 23:46 [facility] 09/10 22:42 Order name: Magnesium; Complete Time: 23:46 [facility] 09/10 22:42 Order name: NT PRO-BNP; Complete Time: 23:46 [facility] 09/10 22:42 Order name: PT-INR; Complete Time: 23:46 [facility] 09/10 22:42 Order name: Troponin (emerg Dept Use Only); Complete Time: 23:46 [facility] 09/10 22:42 Order name: XRAY Chest ([address] view) [facility] 09/10 22:42 Order name: Blood Culture Adult (2) [facility] 09/10 22:42 Order name: Urine Culture [facility] 09/10 22:42 Order name: Lipase; Complete Time: 23:46 [facility] 09/10 22:42 Order name: Flu; Complete Time: 00:11 [facility] 09/11 00:50 Order name: Urine Dipstick--Ancillary (enter results) mt 09/11 01:16 Order name: Urine Dipstick-Ancillary EDMS 09/10 22:42 Order name: EKG; Complete Time: 22:43 [facility] 09/10 22:42 Order name: Cardiac monitoring; Complete Time: 23:54 [facility] 09/10 22:42 Order name: EKG - Nurse/Tech; Complete Time: 23:54 [facility] 09/10 22:42 Order name: IV Saline Lock; Complete Time: 23:54 [facility] 09/10 22:42 Order name: Labs collected and sent; Complete Time: 23:54 [facility] 09/10 22:42 Order name: O2 Per Protocol; Complete Time: 23:54 [facility] 09/10 22:42 Order name: O2 Sat Monitoring; Complete Time: 23:54 [facility] 09/10 22:42 Order name: Urine Dipstick-Ancillary (obtain specimen); Complete Time: 00:39 [facility] 09/11 00:39 Order name: Straight Cath; Complete Time: 00:40 ca1 Administered Medications: 23:15 Drug: NS 0.9% 1000 ml Route: IV; Rate: 125 ml/hr; Site: left forearm; ca1 09/11 01:24 Follow up: Response: No adverse reaction; IV Status: Infusion continued upon admission ca1 09/10 23:15 Drug: SOLU-Medrol 2 mg/kg Route: IVP; Site: left forearm; ca1 09/11 01:23 Follow up: Response: No adverse reaction ca1 09/10 23:15 Drug: Albuterol - atroVENT (3:1) (2.5 mg - 0.5 mg) 3 ml Route: Nebulizer; ca1 09/11 01:22 Follow up: Response: No adverse reaction ca1 09/10 23:17 Drug: Pepcid 20 mg Route: IVP; Site: left forearm; ca1 09/11 01:22 Follow up: Response: No adverse reaction ca1 09/10 23:30 Drug: Rocephin 1 grams Route: IV; Rate: calculated rate; Site: left forearm; ca1 09/11 01:23 Follow up: Response: No adverse reaction; IV Status: Completed infusion ca1 09/10 23:35 Drug: Zithromax 500 mg Route: IVPB; Infused Over: 1 hrs; Site: left forearm; ca1 09/11 01:23 Follow up: Response: No adverse reaction; IV Status: Completed infusion ca1 09/10 23:57 CANCELLED (Duplicate Order): Rocephin - (cefTRIAXone) 1 grams IVPB once over 30 mins; ca1 (mix in 50 mL NS) 09/11 00:11 Not Given (Duplicate Order): NS 0.9% 1000 ml IV at 125 ml/hr continuous nayan Disposition: 09/10/18 23:48 Hospitalization ordered by Gita Jamison for Observation. Preliminary diagnosis are Chronic obstructive pulmonary disease with (acute) exacerbation, Altered mental status, unspecified, Dementia in other diseases classified elsewhere, Anemia, unspecified. - Bed requested for Telemetry/MedSurg (observation). - Status is Observation. ca1 - Condition is Stable. - Problem is new. - Symptoms have improved. UTI on Admission? No Signatures: Dispatcher [employer] EDMS Eusebio Magallon MD MD cha Garcia, Cindy, RN RN cg Acob, Cheryl, RN RN ca1 Corrections: (The following items were deleted from the chart) 09/10 23:57 22:52 Rocephin - (cefTRIAXone) 1 grams IVPB once over 30 mins; (mix in 50 mL NS) ca1 ordered. nayan 09/11 00:12 09/10 23:48 Hospitalization Ordered by Gita Jamison MD for Observation. Preliminary nayan diagnosis is Chronic obstructive pulmonary disease with (acute) exacerbation; Altered mental status, unspecified; Dementia in other diseases classified elsewhere. Bed requested for Telemetry/MedSurg (observation). Status is Observation. Condition is Stable. Problem is new. Symptoms have improved. UTI on Admission? No. nayan 09/11 00:30 00:12 09/10/2018 23:48 Hospitalization Ordered by Gita Jamison MD for Observation. cg Preliminary diagnosis is Chronic obstructive pulmonary disease with (acute) exacerbation; Altered mental status, unspecified; Dementia in other diseases classified elsewhere; Anemia, unspecified. Bed requested for Telemetry/MedSurg (observation). Status is Observation. Condition is Stable. Problem is new. Symptoms have improved. UTI on Admission? No. nayan 01:24 00:30 09/10/2018 23:48 Hospitalization Ordered by Gita Jamison MD for Observation. ca1 Preliminary diagnosis is Chronic obstructive pulmonary disease with (acute) exacerbation; Altered mental status, unspecified; Dementia in other diseases classified elsewhere; Anemia, unspecified. Bed requested for Telemetry/MedSurg (observation). Status is Observation. Condition is Stable. Problem is new. Symptoms have improved. UTI on Admission? No. cg
--- NOTE | 2018-09-11 00:26 | P.HP ---
Certification for Inpatient Patient admitted to: Observation With expected LOS: <2 Midnights Practitioner: I am a practitioner with admitting privileges, knowledge of patient current condition, hospital course, and medical plan of care. Services: Services provided to patient in accordance with Admission requirements found in Title 42 Section 412.3 of the Code of Federal Regulations Patient History Date of Service: 09/11/18 Reason for admission: acute bronchitis, AMS History of Present Illness: Ms Barnhart is an 83 years old woman with history of COPD, HTN, Dementia, who start about 3 days ago with productive cough and congestion. No reported fever or chills. No SOB either. Apparently, the patient recived a higher dose of sedative medication today, adminitstrated by her son in law (per record), unknown exactly what medication was. At my encounter the patient was afebrile, alert, not able to follow commandas. Lab work shows WBC 3.2K. CXR shows no acute abnormalities. Allergies codeine Allergy (Unverified 05/01/18 05:39) Unknown No Known Drug Allergies Allergy (Verified 01/23/17 21:23) Unknown No Known Allergies Allergy (Uncoded 01/23/17 21:23) Unknown Home medications list reviewed: Yes Home Medications: Gabapentin [Neurontin*] 100 mg PO BID 08/11/13 Omeprazole [Prilosec] 20 mg PO DAILY 08/11/13 Tramadol HCl 50 mg PO BID 08/11/13 Aspirin 325 mg PO DAILY 12/13/13 Fish Oil/Borage/Flax/Om3,6,9#1 [Triple Fox Complex 3-6-9] 1,200 mg PO DAILY Simvastatin [Zocor*] 20 mg PO DAILY 12/13/13 Donepezil HCl [Aricept] 5 mg PO DAILY #30 tablet 04/19/15 Clopidogrel Bisulfate [Clopidogrel] 75 mg PO DAILY 08/12/15 Oxybutynin Chloride [Ditropan*] 5 mg PO DAILY 08/12/15 ALPRAZolam [Xanax*] 0.5 mg PO Q8H PRN #60 tab 03/10/16 Citalopram [Celexa*] 10 mg PO DAILY 01/23/17 Albuterol Sulfate [Proair Hfa] 8.5 gm IH TID PRN #1 hfa.aer.ad 01/29/17 Carvedilol [Coreg*] 3.125 mg PO BID 6AM 6PM #60 tab 01/29/17 Ensure Enlive 237 ml PO BID #60 can 01/29/17 Fluticasone/Salmeterol [Advair 250/50 Diskus*] 1 puff IH BID #1 disk 01/29/17 predniSONE [Deltasone*] 10 mg PO SEECOM #15 tab 01/29/17 - Past Medical/Surgical History Diabetic: No -: HTN -: Hyperlipidemia -: History of Vaginal Cancer -: Melanoma of neck -: History of Uterine Cancer -: Anxiety -: Dementia -: Carotid stenosis to the Right -: CAD -: tremors -: Hyserectomy -: Cholecystectomy -: Apendectomy -: Cataract Psychosocial/ Personal History: Lives with daughter. - Family History Father -: Hypertension, Cancer Mother -: Heart disease, Stroke - Social History Smoking Status: Unknown if ever smoked Alcohol use: No CD- Drugs: No Caffeine use: Yes Place of Residence: Home Review of Systems 10-point ROS is otherwise unremarkable Physical Examination - Physical Exam General: Alert, In no apparent distress, Demented, Confused HEENT: Atraumatic, PERRLA, Mucous membr. moist/pink, Sclerae nonicteric Neck: Supple, 2+ carotid pulse no bruit, No LAD, Without JVD or thyroid abnormality Respiratory: Normal air movement, Rhonchi/gurgles (scattered rhonchi bilateral) Cardiovascular: Normal S1 S2, No gallops Gastrointestinal: Normal bowel sounds, No tenderness Musculoskeletal: No tenderness Integumentary: No rashes Neurological: Normal strength at 5/5 x4 extr, Normal tone, Sensation intact, Abnormal affect (flat) Lymphatics: No axilla or inguinal lymphadenopathy - Studies Laboratory Data (last 24 hrs) 09/10/18 23:13: PT 12.1, INR 1.03 09/10/18 23:13: WBC 3.2 L, Hgb 9.2 L, Hct 29.9 L, Plt Count 304 09/10/18 23:13: Sodium 142, Potassium 4.3, BUN 11, Creatinine 0.86, Glucose 86, Magnesium 2.3, Total Bilirubin 0.4, AST 19, ALT 14, Alkaline Phosphatase 110, Lipase 106 Microbiology Data (last 24 hrs): 09/10/18 23:21 Nasopharnyx Influenza Type A Antigen Screen - Final 09/10/18 23:21 Nasopharnyx Influenza Type B Antigen Screen - Final Assessment and Plan - Problems (Diagnosis) (1) COPD exacerbation Current Visit: Yes Status: Acute (2) Acute bronchitis Current Visit: Yes Status: Acute Qualifiers: Bronchitis organism: unspecified organism Qualified Code(s): J20.9 - Acute bronchitis, unspecified (3) Dementia Onset Date: 01/24/17 Current Visit: No Status: Chronic Qualifiers: Dementia type: unspecified type Dementia behavioral disturbance: without behavioral disturbance Qualified Code(s): F03.90 - Unspecified dementia without behavioral disturbance - Plan The patient will be admitted to the hospital due to COPD exacerbation due to acute bronchitis. Will order empiric antibiotic treatment. Blood culture in process. - Advance Directives Does patient have a Living Will: Yes Does patient have a Durable POA for Healthcare: Yes - Code Status/Comfort Care Code Status Assessed: Yes Code Status: Full Code
[2018-09-11 01:16] LABS: Urine Blood NEGATIVE (NEG); Urine Glucose NEGATIVE (NEG); Urine Protein NEGATIVE (NEG)
[2018-09-11] MEDS ORDERED: ONDANSETRON 4 MG/2 ML VIAL IV PRN (01:28)
[2018-09-11] MEDS ORDERED: ACETAMINOPHEN 500 MG TAB PO PRN (01:28)
[2018-09-11] MEDS: NA CHLORIDE 0.9% 1,000 ML IV SCH ×4 (01:28→21:28)
[2018-09-11 01:56] VITALS: BMI 16.9
[2018-09-11 06:21] LABS: Absolute Lymphocytes (CBC) 0.3 K/uL (0.7-4.9); Absolute Monocytes 0.1 K/uL (0.1-1.3); Absolute Neutrophil 3.5 K/uL (1.8-8.0); Basophils % 0.1 % (0-1.3); Lymphocytes % 8.4 % (15.3-44.8); MPV 7.8 fL (7.6-11.3); Monocytes % 1.7 % (3.3-12.3); RBC Red Blood Cell Count 3.52 M/uL (3.86-4.86)
[2018-09-11 06:37] LABS: Potassium 3.7 mmol/L (3.5-5.1)
--- NOTE | 2018-09-11 07:46 | EKG ---
Test Date: 2018-09-10 Test Time: 22:57:13 Job Press Feeder: GLORIA MEASUREMENT RESULTS: Intervals: Rate: 77 MS: 168 QRSD: 70 QT: 388 QTc: 439 [place]: P: 78 MS: 168 QRS: 71 T: 76 INTERPRETIVE STATEMENTS: Normal sinus rhythm Normal ECG Compared to ECG 12/18/2017 02:56:00 No significant changes Electronically Signed On 09-11-18 07:45:44 OBIEE LEAD DEVELOPER by Adam Messer
--- NOTE | 2018-09-11 08:58 | RAD REPORT ---
EXAM DESCRIPTION: Magy Single View09/10/2018 10:56 pm CLINICAL HISTORY: Cough COMPARISON: December 2017 FINDINGS: Lungs are hyperaerated. The lungs appear clear of acute infiltrate. The heart is normal size IMPRESSION: No acute abnormalities displayed
[2018-09-11] MEDS ORDERED: POTASSIUM CL SA 10 MEQ TAB PO ONE (09:00)
[2018-09-11] MEDS: ENOXAPARIN 40 MG/0.4 ML SQ SCH (09:02)
[2018-09-11] MEDS: NICOTINE 21 MG/PAT TD SCH (18:52)
[2018-09-11] MEDS ORDERED: CEFTRIAXONE 1 GM/NS 50 ML 1 GM/50 ML BAG IV SCH (20:00)
[2018-09-11] MEDS: LORazepam 2 MG/ML VIAL IV PRN (20:33)
[2018-09-11] MEDS ORDERED: AZITHROMYCIN IV 500 MG in NA CHLORIDE 0.9% 250 ML IVPB SCH (21:00)
[2018-09-11] MEDS ORDERED: CEFTRIAXONE/SWI 1gm 1 GM/10 ML SYR IV SCH (21:00)
[2018-09-12] MEDS: LORazepam 2 MG/ML VIAL IV PRN (03:18)
[2018-09-12 04:10] VITALS: O2SAT 94
[2018-09-12] MEDS: NA CHLORIDE 0.9% 1,000 ML IV SCH (06:29)
[2018-09-12 08:44] LABS: Absolute Lymphocytes (CBC) 1.6 K/uL (0.7-4.9); Absolute Monocytes 0.5 K/uL (0.1-1.3); Basophils % 0.2 % (0-1.3); Eosinophils % 0.5 % (0-4.4); Hematocrit 24.7 % (36.0-45.0); Lymphocytes % 22.1 % (15.3-44.8); MPV 7.7 fL (7.6-11.3); Monocytes % 6.7 % (3.3-12.3); RBC Red Blood Cell Count 3.23 M/uL (3.86-4.86)
[2018-09-12 08:58] LABS: Potassium 3.5 mmol/L (3.5-5.1)
[2018-09-12] MEDS ORDERED: POTASSIUM CL SA 10 MEQ TAB PO ONE (09:00)
[2018-09-12 09:37] LABS: Blood Morphology Comment NOTED (NOT SEEN); Platelet Estimate ADEQ
[2018-09-12 09:38] LABS: Anisocytosis 2+; Ovalocytes 1+
[2018-09-12] MEDS: NICOTINE 21 MG/PAT TD SCH (11:04)
[2018-09-12] MEDS: ENOXAPARIN 40 MG/0.4 ML SQ SCH (11:04)
[2018-09-12 12:34] VITALS: BP 105/52; TEMP 98.2
--- NOTE | 2018-09-12 12:46 | P.SSS ---
Patient History Date of Service: 09/12/18 Reason for admission: acute bronchitis, AMS History of Present Illness: Ms Barnhart is an 83 years old woman with history of COPD, HTN, Dementia, who start about 3 days ago with productive cough and congestion. No reported fever or chills. No SOB either. Apparently, the patient recived a higher dose of sedative medication today, adminitstrated by her son in law (per record), unknown exactly what medication was. At my encounter the patient was afebrile, alert, not able to follow commandas. Lab work shows WBC 3.2K. CXR shows no acute abnormalities. Allergies codeine Allergy (Unknown, Verified 09/11/18 09:03) Unknown Home Medications: ALPRAZolam [Alprazolam] 1 tab PO BID 09/11/18 Aspirin [Aspirin EC 81 MG] 81 mg PO DAILY 09/11/18 Calcium Carbonate 600 mg PO DAILY 09/11/18 Carvedilol 3.125 mg PO BID 09/11/18 Citalopram [Celexa*] 10 mg PO DAILY 09/11/18 Clopidogrel Bisulfate [Plavix*] 75 mg PO DAILY 09/11/18 Donepezil HCl 5 mg PO BEDTIME 09/11/18 Eluxadoline [Viberzi] 75 mg PO TID 09/11/18 Gabapentin 100 mg PO BID 09/11/18 Garlic 1 each PO DAILY 09/11/18 Guaifenesin [Mucus Relief] 400 mg PO Q4H PRN 09/11/18 Iron 18 mg PO DAILY 09/11/18 Mv-Mn/Iron/FA/Herbal Cmplx#190 [Vitamin D3 Complete Caplet] 1 each PO DAILY 12/25 Omeprazole 20 mg PO DAILY 09/11/18 Oxybutynin Chloride 5 mg PO BID 09/11/18 Simvastatin 20 mg PO BEDTIME 09/11/18 buPROPion HCl [Bupropion HCl] 100 mg PO DAILY 09/11/18 - Past Medical/Surgical History Diabetic: No -: HTN -: Hyperlipidemia -: History of Vaginal Cancer -: Melanoma of neck -: History of Uterine Cancer -: Anxiety -: Dementia -: Carotid stenosis to the Right -: CAD -: tremors -: COPD -: ataxic gait -: Hyserectomy -: Cholecystectomy -: Apendectomy -: Cataract Psychosocial/ Personal History: Lives with daughter. - Family History Father -: Hypertension, Cancer Mother -: Heart disease, Stroke - Social History Smoking Status: Unknown if ever smoked Alcohol use: No CD- Drugs: No Caffeine use: Yes Place of Residence: Home Review of Systems 10-point ROS is otherwise unremarkable Physical Examination - Vital Signs Temperature: 98.2 F Blood Pressure: 105/52 Pulse: 99 Respirations: 16 Pulse Ox (%): 97 - Physical Exam General: Alert, In no apparent distress HEENT: Atraumatic, PERRLA, Mucous membr. moist/pink, EOMI, Sclerae nonicteric Neck: Supple, 2+ carotid pulse no bruit, No LAD, Without JVD or thyroid abnormality Respiratory: Clear to auscultation bilaterally, Normal air movement Cardiovascular: Regular rate/rhythm, Normal S1 S2 Gastrointestinal: Normal bowel sounds, No tenderness Musculoskeletal: No tenderness Integumentary: No rashes Neurological: Normal gait, Normal speech, Normal strength at 5/5 x4 extr, Normal tone, Normal affect Lymphatics: No axilla or inguinal lymphadenopathy - Studies Microbiology Data (last 24 hrs): 09/10/18 23:25 Blood - Blood Anaerobic Blood Culture - Final 09/10/18 23:13 Blood - Blood Anaerobic Blood Culture - Final Treatment Summary: - Problems (Diagnosis) (1) COPD exacerbation Current Visit: Yes Status: Acute (2) Acute bronchitis Current Visit: Yes Status: Acute Qualifiers: Bronchitis organism: unspecified organism Qualified Code(s): J20.9 - Acute bronchitis, unspecified (3) Dementia Onset Date: 01/24/17 Current Visit: No Status: Chronic Qualifiers: Dementia type: unspecified type Dementia behavioral disturbance: without behavioral disturbance Qualified Code(s): F03.90 - Unspecified dementia without behavioral disturbance - Plan The patient was admitted to the hospital 1st mild COPD exacerbation. At the time of my exam, patient was breathing well on room air, in no respiratory distress. Mentation veliz, initially patient was sleepy. Then she woke up, and was confused, yelling at nurses and staff. Spoke to daughter, per daughter patient does have underlying dementia and seems to be at baseline. She agrees with patient being discharged home. Daughter stated that normally she is a caregiver for the patient meds since she was in the hospital, her son and his girlfriend were taking care of her. That will happen again, per daughter. Instructed daughter for patient to follow up with her primary care physician. - Disposition Disposition: ROUTINE DISCHARGE Condition: GOOD Patient Discharge Instructions: Please follow up with your primary care physician in 1 week Diet: Regular Activity: Ad chapis Physician Review: Patient Assessed, Agree with Above Assessment and Plan Time Spent Managing Pts Care (In Minutes): 55
== END 2018-09-12 12:26 | disposition home or self-care (01) ==
LOC: ER 22:20 → ERHOLD 09-11 00:28 → 2ND 09-11 00:56
PROVIDERS: ADMIT Internal Medicine; ATTEND Internal Medicine
DX: J44.1 Chronic obstructive pulmonary disease with (acute) exacerbation (principal); J20.9 Acute bronchitis, unspecified; J44.0 Chronic obstructive pulmonary disease with (acute) lower respiratory infection; I10 Essential (primary) hypertension; E78.5 Hyperlipidemia, unspecified; F03.90 Unspecified dementia, unspecified severity, without behavioral disturbance, psychotic disturbance, mood disturbance, and anxiety; Z85.89 Personal history of malignant neoplasm of other organs and systems; I25.10 Atherosclerotic heart disease of native coronary artery without angina pectoris; Z79.82 Long term (current) use of aspirin
CPT/HCPCS: 36415; 51702; 71045; 80048; 80076; 81003; 83690; 83735; 83880; 84484; 85025; 85610; 87040; 87086; 87088; 87804; 93005; 94640; 96365; 96368; 96375; 99285; G0378; J0456; J0696; J1650; J2930; J7030

== ENCOUNTER 2020-01-28 09:03 | Inpatient (IN) | payer OTHER ==
--- NOTE | 2020-01-28 10:15 | RAD REPORT ---
EXAM DESCRIPTION: CT - Head Brain Wo Cont - 01/28/2020 9:50 am CLINICAL HISTORY: Head injury status post fall. Dementia COMPARISON: 2018 TECHNIQUE: Computed axial tomography of the head was obtained. IV contrast was not requested. All CT scans are performed using dose optimization technique as appropriate and may include automated exposure control or mA/KV adjustment according to patient size. FINDINGS: An intracranial bleed is not seen . The ventricles are normal in caliber. No extra-axial fluid collection is noted. Mild to moderate low-density areas within periventricular, deep and subcortical white matter likely r epresent ischemic changes secondary to small vessel disease. Fluid within the sinuses/ mastoids is not seen. IMPRESSION: No acute intracranial abnormality is seen. If patient's symptoms persist MRI of the bra in would be recommended.
[2020-01-28 11:11] LABS: Hematocrit 25.4 % (36.0-45.0); MPV 7.9 fL (7.6-11.3); RBC Red Blood Cell Count 3.56 M/uL (3.86-4.86)
--- NOTE | 2020-01-28 11:16 | RAD REPORT ---
EXAM DESCRIPTION: RAD - Pelvis - 01/28/2020 10:40 am CLINICAL HISTORY: Pelvic pain status post injury FINDINGS: No fracture or dislocation is seen. The bones are osteoporotic If the patient continues to have symptoms to suggest an occult fracture then MRI would be recommended
--- NOTE | 2020-01-28 11:16 | RAD REPORT ---
EXAM DESCRIPTION: RAD - Hip Right 2 View - 01/28/2020 10:40 am CLINICAL HISTORY: Right hip pain FINDINGS: No fracture or dislocation is seen. The bones are osteoporotic. If the patient continues have symptoms to suggest an occult fracture MRI would be recommended
--- NOTE | 2020-01-28 11:17 | RAD REPORT ---
EXAM DESCRIPTION: RAD - Femur Right - 01/28/2020 10:40 am CLINICAL HISTORY: Right leg pain FINDINGS: No fracture is seen. Bones are osteoporotic
--- NOTE | 2020-01-28 11:18 | RAD REPORT ---
EXAM DESCRIPTION: Magy Single View01/28/2020 10:40 am CLINICAL HISTORY: Chest pain COMPARISON: 2018 FINDINGS: The lungs appear clear of acute infiltrate. The heart is normal size. Old rib fractures. Lungs are hyperaerated IMPRESSION: No acute abnormalities displayed
[2020-01-28 11:19] LABS: Protime INR 1.03
[2020-01-28 11:28] LABS: ALT/SGPT 15 U/L (12-78); AST/SGOT 14 U/L (15-37); Alkaline Phosphatase 125 U/L (45-117); BUN Blood Urea Nitrogen 14 mg/dL (7-18); Bicarbonate 26 mmol/L (21-32); Bilirubin Direct 0.2 mg/dL (0-0.2); Bilirubin Total 0.7 mg/dL (0.2-1.0); CKMB Creatine Kinase MB 1.5 ng/mL (0.3-3.6); Creatine Phosphokinase 95 U/L (26-192); Glucose Level 91 mg/dL (74-106); Lipase 109 U/L (73-393); Magnesium 2.7 mg/dL (1.8-2.4); Potassium 3.8 mmol/L (3.5-5.1); Protein, Total 7.5 g/dL (6.4-8.2); Sodium Level 140 mmol/L (136-145); Troponin (Emerg Dept Use Only) < 0.02 ng/mL (0.0-0.045)
[2020-01-28 11:35] LABS: Urine Appearance CLEAR; Urine Bilirubin NEGATIVE (NEG); Urine Blood NEGATIVE (NEG); Urine Color YELLOW; Urine Glucose NEGATIVE (NEG); Urine Protein NEGATIVE (NEG); Urine Specific Gravity <=1.005 (1.005-1.030); Urine pH 5.5 (5.0-7.0)
[2020-01-28 11:40] LABS: Urine Microscopic Reflex NO UMIC
[2020-01-28 11:44] LABS: Urine Blood NEGATIVE (NEG); Urine Glucose NEGATIVE (NEG); Urine Protein NEGATIVE (NEG)
[2020-01-28 12:53] LABS: Anisocytosis 2+; Blood Morphology Comment NOTED (NOT SEEN); Elliptocytes 1+; Hypochromasia 1+; Platelet Estimate ADEQ; Poikilocytosis 1+
--- NOTE | 2020-01-28 13:16 | RAD REPORT ---
EXAM DESCRIPTION: CT - Abdomen Pelvis W Contrast - 01/28/2020 12:55 pm CLINICAL HISTORY: BLUNT TRAUMA COMPARISON: CT ABD PELVIS W CONTRAST dated 08/12/2015 TECHNIQUE: Biphasic, helical CT imaging of the abdomen and pelvis was performed following 100 ml non -ionic IV contrast. No oral contrast administered. All CT scans are performed using dose optimization technique as appropriate and may include automated exposure control or mA/KV adjustment according to patient size. FINDINGS: No suspicious findings in the lung bases. Right base calcified granuloma noted. No pericar dial thickening or effusion. The liver, spleen, and pancreas show no suspicious findings. Gallbladder is absent. Intrahepatic and extrahepatic biliary tree dilatation present. This is slightly worse but not new compared to 2015. Du ct stones can be occult. No obstructing mass identified. Finding may still reflect the reservoir effe ct that can occur after a cholecystectomy. Correlation is needed with any biliary obstructive clinica l or laboratory findings. Normal left renal function is present. A small cyst is present in the upper pole unchanged from 2015. No left-sided pyelonephritis or acute parenchymal process. No bilateral obstructing or nonobstructin g calculi. Right kidney is atrophic with little functioning parenchyma. Small exophytic cystic masses are present with no abnormal enhancement. Right renal findings are unchanged from 2015. Urinary blad enoc is fully contracted which precludes any accurate assessment. No adrenal abnormalities. No dilated bowel loops or bowel wall thickening. Patient has prominent sigmoid diverticulosis without diverticulitis. A few prominent small bowel loops are present. Likelihood of an acute enteritis is f elt to be low but not entirely excluded. No appendicitis findings or other emergent GI process. No free air, free fluid or inflammatory stranding. No hernia, mass or bulky lymphadenopathy. Lumbar spine degenerative changes are present. There is mild anterior subluxation of L3. Advanced deg enerative disc disease at L4-5 with L4 subluxation. Facet degenerative change seen in the lumbar spin e. No compression fracture or acute vertebral finding. No pelvic fracture identified. Vascular calcifications are present. No acute vascular finding. IMPRESSION: No posttraumatic injury to the abdomen or pelvis. Nonacute findings are detailed in the body of the report.
--- NOTE | 2020-01-28 14:04 | EDPHYS ---
Physician Documentation [facility] Name: Ellie Barnhart Age: 84 yrs Sex: Female : 1935 Arrival Date: 01/28/2020 Time: 09:04 Bed 7 Private MD: ED Physician Min Wynn HPI: 01/27 09:16 This 84 yrs old Female presents to ER via EMS with complaints of Altered mh7 Mental Status, Fall Injury. 09:16 The patient presents with confusion. Onset: The symptoms/episode began/occurred 3 mh7 day(s) ago. Possible causes: unknown. Associated signs and symptoms: Pertinent negatives: abdominal pain, agitation, ataxia, blurred vision, chest pain, combativeness, diaphoresis, diarrhea, dizziness, headache, lightheadedness, nausea, numbness, palpitations, seizure, shortness of breath, tingling, vertigo, vomiting, weakness. Current symptoms: In the emergency department the patient's symptoms are unchanged from the initial presentation. . 09:16 Per EMS patient's daughter found her laying on floor near her bed this morning. She was mh7 last seen normal about 2 hours prior to being found on floor. Patient reported getting up to try to go to restroom but does not know how she ended up on the floor. She denies any pain or symptoms including headache, chest pain, abdominal pain, SOB, nausea, or vomiting. Daughter reported to EMS that patient has had some increased confusion over the past few days.. Historical: - Allergies: 09:12 Codeine; ph - Home Meds: 09:12 alprazolam 1 mg Oral tab 1 tab twice a day [Active]; Aspir-81 81 mg Oral TbEC 1 tab ph once daily [Active]; 09:13 calcium carbonate 600 mg (1,500 mg) Oral tab [Active]; citalopram 10 mg tab 1 tab once ph daily [Active]; donepezil 5 mg Oral tab 1 tab once daily [Active]; clopidogrel 75 mg Oral tab 1 tab once daily [Active]; gabapentin 100 mg Oral cap [Active]; garlic 1 mg Oral cap [Active]; Mucus Relief 400 mg Oral tab 1 tab every 4 hours [Active]; omeprazole 40 mg Oral cpDR 1 cap once daily [Active]; simvastatin 20 mg Oral tab 1 tab once daily [Active]; Viberzi 75 mg Oral tab three times a day [Active]; Vitamin D3 Complete 18 mg iron-800 mcg-150 mg Oral tab [Active]; - PMHx: 09:12 ataxic gait; COPD; Dementia; Hyperlipidemia; Hypertension; ph - Immunization history:: Adult Immunizations unknown. - Social history:: Smoking status: unknown. ROS: 09:16 Constitutional: Negative for fever, chills, and weight loss, Eyes: Negative for injury, mh7 pain, redness, and discharge, ENT: Negative for injury, pain, and discharge, Neck: Negative for injury, pain, and swelling, Cardiovascular: Negative for chest pain, palpitations, and edema, Respiratory: Negative for shortness of breath, cough, wheezing, and pleuritic chest pain, Abdomen/GI: Negative for abdominal pain, nausea, vomiting, diarrhea, and constipation, Back: Negative for injury and pain, : Negative for injury, bleeding, discharge, and swelling, MS/Extremity: Negative for injury and deformity, Skin: Negative for injury, rash, and discoloration, Neuro: Negative for headache, weakness, numbness, tingling, and seizure, Psych: Negative for depression, anxiety, suicide ideation, homicidal ideation, and hallucinations, Allergy/Immunology: Negative for hives, rash, and allergies, Endocrine: Negative for neck swelling, polydipsia, polyuria, polyphagia, and marked weight changes, Hematologic/Lymphatic: Negative for swollen nodes, abnormal bleeding, and unusual bruising. Exam: 09:16 Constitutional: This is a well developed, well nourished patient who is awake, alert, mh7 and in no acute distress. Head/Face: Normocephalic, atraumatic. Eyes: Pupils equal round and reactive to light, extra-ocular motions intact. Lids and lashes normal. Conjunctiva and sclera are non-icteric and not injected. Cornea within normal limits. Periorbital areas with no swelling, redness, or edema. ENT: Nares patent. No nasal discharge, no septal abnormalities noted. Tympanic membranes are normal and external auditory canals are clear. Oropharynx with no redness, swelling, or masses, exudates, or evidence of obstruction, uvula midline. Mucous membranes moist. Neck: Trachea midline, no thyromegaly or masses palpated, and no cervical lymphadenopathy. Supple, full range of motion without nuchal rigidity, or vertebral point tenderness. No Meningismus. Chest/axilla: Normal chest wall appearance and motion. Nontender with no deformity. No lesions are appreciated. Cardiovascular: Regular rate and rhythm with a normal S1 and S2. No gallops, murmurs, or rubs. Normal PMI, no JVD. No pulse deficits. 09:16 Abdomen/GI: Soft, non-tender, with normal bowel sounds. No distension or tympany. No guarding or rebound. No evidence of tenderness throughout. Back: No spinal tenderness. No costovertebral tenderness. Full range of motion. 09:16 Respiratory: the patient does not display signs of respiratory distress, Respirations: normal, Breath sounds: rhonchi, that are mild, are scattered. 09:16 Musculoskeletal/extremity: Extremities: noted in the right superior posterior thigh: ecchymosis, ROM: intact in all extremities, Circulation is intact in all extremities. Pulses: are normal with no appreciated deficits, Perfusion: the patient is normally perfused throughout, Perfusion: the extremity is normally perfused throughout, Calf tenderness, is absent, Edema, is not appreciated, Sensation intact. Compartment Syndrome exam of affected extremity: is normal. no pain, no numbness, no tingling, no sensation deficit, no palor, no weak pulses, Joints: All joints appear normal with full range of motion. 09:16 Skin: Appearance: normal except for affected area, Approximately 4 cm ecchymosis right superior posterior thigh without tenderness, erythema, swelling, or bleeding.. 09:16 Neuro: Orientation: to person, place, Not oriented to time, Mentation: is normal, Memory: is normal, Cranial nerves: grossly normal, Cerebellar function: is grossly normal, Motor: is normal, Sensation: is normal, Deep tendon reflexes are normal, Babinski testing is normal, seizure activity, is not displayed by the patient, Abnormal movements: there are no abnormal movements. 09:16 Psych: Behavior/mood is pleasant, cooperative, Affect is calm, Oriented to person, place, Patient has no thoughts/intents to harm self or others. Judgement / Insight is normal. Memory is normal. Delusions/hallucinations are not present. 10:17 ECG was reviewed by the Attending Physician. [facility] 11:52 Abdomen/GI: Rectal exam: rectal tone normal, Stool: brown, guaiac negative, mh7 hemorrhoid(s), are not appreciated, mass, is not appreciated, swelling, is not appreciated, tenderness, is not appreciated, the exam is chaperoned by an injection maintenance technician. Vital Signs: 09:22 BP 162 / 86; Pulse 83; Resp 18; Temp 97.7; Pulse Ox 97% on R/A; Weight 58.97 kg; ph 10:00 ph 11:00 BP 160 / 92; Pulse 90; Resp 16; Pulse Ox 98% on R/A; ph 11:40 BP 173 / 94 Supine; Pulse 92; Resp 16; Pulse Ox 100% ; lt1 11:40 BP 155 / 99 Sitting; Pulse 103; lt1 11:41 BP 141 / 107 Standing; Pulse 108; lt1 12:38 BP 138 / 87; Pulse 88; Resp 18; Pulse Ox 98% on R/A; ph 13:30 BP 125 / 85; Pulse 92; Resp 18; Pulse Ox 98% on R/A; ph 14:30 BP 132 / 77; Pulse 85; Resp 16; Temp 97.9; Pulse Ox 98% on R/A; ph 15:30 BP 141 / 78; Pulse 87; Resp 18; Pulse Ox 98% on R/A; ph 16:30 BP 136 / 78; Pulse 86; Resp 19; Temp 97.9; Pulse Ox 99% on R/A; ph 10:00 pt in radiology ph MDM: 09:07 Patient medically screened. mh7 13:55 Differential Diagnosis: CVA, electrolyte abnormality, hypoglycemia, intracranial bleed, mh7 pneumonia, sepsis, TIA, UTI, volume depletion. Data reviewed: vital signs, nurses notes, EMS record, lab test result(s), EKG, radiologic studies, CT scan, plain films. Data interpreted: r d engineer: rate is 88 beats/min, rhythm is normal sinus rhythm, regular, Interpretation: normal rate, normal rhythm, Pulse oximetry: on room air is 98 %. Interpretation: normal. 01/28 07:31 ED course: NAD, VSS, no focal neurological deficits. Discussed test results and [facility] findings with patient and need for admission. Discussed with and admitted to Dr. Elaine.. 01/27 09:10 Order name: Basic Metabolic Panel; Complete Time: 11:30 7 01/27 09:10 Order name: CBC with Diff; Complete Time: 13:50 7 01/27 09:10 Order name: Ckmb; Complete Time: 11:30 [facility] 01/27 09:10 Order name: CPK; Complete Time: 11:30 7 01/27 09:10 Order name: Hepatic Function; Complete Time: 11:30 [facility] 01/27 09:10 Order name: Lipase; Complete Time: 11:30 [facility] 01/27 09:10 Order name: Magnesium; Complete Time: 11:30 [facility] 01/27 09:10 Order name: Protime (+inr); Complete Time: 11:30 [facility] 01/27 09:10 Order name: Ptt, Activated; Complete Time: 11:30 [facility] 01/27 09:10 Order name: Troponin (emerg Dept Use Only); Complete Time: 11:30 [facility] 01/27 09:10 Order name: UA; Complete Time: 12:33 [facility] 01/27 11:30 Order name: Type And Screen [facility] 01/27 11:31 Order name: Urine Dipstick--Ancillary (enter results); Complete Time: 12:33 eb 01/27 11:53 Order name: Occult Blood--Ancillary; Complete Time: 12:33 tt3 01/27 09:10 Order name: Chest Single View XRAY; Complete Time: 11:30 [facility] 01/27 09:10 Order name: Pelvis XRAY; Complete Time: 11:30 [facility] 01/27 09:13 Order name: Hip Right 2 View XRAY; Complete Time: 11:30 01/27 12:55 Order name: Manual Differential; Complete Time: 13:50 EDMS 01/27 14:19 Order name: CBC with Automated Diff EDMS 01/27 14:19 Order name: CBC with Automated Diff EDMS 01/27 14:19 Order name: CBC with Automated Diff EDMS 01/27 14:19 Order name: Comprehensive Metabolic Panel EDMS 01/27 14:19 Order name: Comprehensive Metabolic Panel EDMS 01/27 14:19 Order name: Comprehensive Metabolic Panel EDMS 01/27 14:20 Order name: Ferritin EDMS 01/27 14:20 Order name: Transferrin Sat/Iron Binding EDMS 01/27 14:20 Order name: Transferrin Sat/Iron Binding EDMS 01/27 14:20 Order name: Thyroid Stimulating Hormone EDMS 01/27 14:20 Order name: Vitamin B12 Level EDMS 01/27 14:27 Order name: Blood Culture [facility] 01/27 09:10 Order name: EKG; Complete Time: 09:12 [facility] 01/27 09:10 Order name: Cardiac monitoring; Complete Time: 09:23 [facility] 01/27 09:10 Order name: EKG - Nurse/Tech; Complete Time: 10:58 [facility] 01/27 09:10 Order name: IV Saline Lock; Complete Time: 09:24 [facility] 01/27 09:10 Order name: Labs collected and sent; Complete Time: 09:24 [facility] 01/27 09:10 Order name: NPO; Complete Time: 09:24 [facility] 01/27 09:10 Order name: O2 Per Protocol; Complete Time: 09:24 [facility] 01/27 09:10 Order name: O2 Sat Monitoring; Complete Time: 09:24 [facility] 01/27 09:10 Order name: Urine Dipstick-Ancillary (obtain specimen); Complete Time: 12:37 [facility] 01/27 09:13 Order name: Femur Right XRAY; Complete Time: 11:30 [facility] 01/27 09:16 Order name: CT Head Brain wo Cont; Complete Time: 10:53 [facility] 01/27 10:03 Order name: Orthostatics; Complete Time: 11:29 [facility] 01/27 12:37 Order name: CT Abd/Pelvis - IV Contrast Only; Complete Time: 13:50 [facility] 01/27 14:19 Order name: CONS Pharmacy Consult [facility] 01/27 14:19 Order name: NPO EDOH EC/22 10:17 Rate is 88 beats/min. Rhythm is regular. QRS Deep Gap is Normal. MS interval is normal. QRS mh7 interval is normal. QT interval is normal. No Q waves. T waves are Normal. No ST changes noted. Clinical impression: Normal ECG. Administered Medications: No medications were administered Disposition: 01/28/20 14:03 Hospitalization ordered by Romario Romero for Inpatient Admission. Preliminary diagnosis are Syncope and collapse, Anemia in other chronic diseases classified elsewhere. - Bed requested for Telemetry/MedSurg (Inpatient). - Status is Inpatient Admission. ph - Condition is Stable. - Problem is new. - Symptoms have improved. Signatures: Dispatcher [employer] [facility] Chey Lopez RN RN Chioma Ring RN RN ph Holmes, Maurice, MD MD mh7 Corrections: (The following items were deleted from the chart) 14:30 14:03 Hospitalization Ordered by Romario Romero MD for Inpatient Admission. dw Preliminary diagnosis is Syncope and collapse; Anemia in other chronic diseases classified elsewhere. Bed requested for Telemetry/MedSurg (Inpatient). Status is Inpatient Admission. Condition is Stable. Problem is new. Symptoms have improved. mh7 16:36 14:30 01/28/2020 14:03 Hospitalization Ordered by Romario Romero MD for Inpatient ph Admission. Preliminary diagnosis is Syncope and collapse; Anemia in other chronic diseases classified elsewhere. Bed requested for Telemetry/MedSurg (Inpatient). Status is Inpatient Admission. Condition is Stable. Problem is new. Symptoms have improved. dw
--- NOTE | 2020-01-28 14:04 | ER ---
Nurse's Notes [facility] Name: Ellie Barnhart Age: 84 yrs Sex: Female : 1935 Arrival Date: 01/28/2020 Time: 09:04 Bed 7 Private MD: Diagnosis: Syncope and collapse;Anemia in other chronic diseases classified elsewhere Presentation: 01/27 09:05 Chief complaint: EMS states: Pt found on floor this morning by daughter, reports that ph she was attempting to go to the restroom and fell, daughter states that she was seen in bed at 5 am so fell sometime after that, pt denies pain, no injuries noted, hx of dementia, daughter reports that pt has been more confused than usual and has been falling recently, BGL 80, all VSS. Coronavirus screen: Patient denies a cough. Patient denies shortness of breath or difficulty breathing. Patient denies measured and/or subjective temperature greater than 100.4F prior to today's visit. Patient denies travel on a cruise ship or to a country the [facility] currently lists as an affected area. Patient denies contact with known and/or suspected case of COVID-19. Ebola Screen: No symptoms or risks identified at this time. Initial Sepsis Screen: Does the patient meet any 2 criteria? No. Patient's initial sepsis screen is negative. Does the patient have a suspected source of infection? No. Patient's initial sepsis screen is negative. Risk Assessment: Do you want to hurt yourself or someone else? Patient reports no desire to harm self or others. Onset of symptoms was January 28, 2020. 09:05 Method Of Arrival: EMS: [facility] ph 09:05 Acuity: HATTIE 3 ph Historical: - Allergies: 09:12 Codeine; ph - Home Meds: 09:12 alprazolam 1 mg Oral tab 1 tab twice a day [Active]; Aspir-81 81 mg Oral TbEC 1 tab ph once daily [Active]; 09:13 calcium carbonate 600 mg (1,500 mg) Oral tab [Active]; citalopram 10 mg tab 1 tab once ph daily [Active]; donepezil 5 mg Oral tab 1 tab once daily [Active]; clopidogrel 75 mg Oral tab 1 tab once daily [Active]; gabapentin 100 mg Oral cap [Active]; garlic 1 mg Oral cap [Active]; Mucus Relief 400 mg Oral tab 1 tab every 4 hours [Active]; omeprazole 40 mg Oral cpDR 1 cap once daily [Active]; simvastatin 20 mg Oral tab 1 tab once daily [Active]; Viberzi 75 mg Oral tab three times a day [Active]; Vitamin D3 Complete 18 mg iron-800 mcg-150 mg Oral tab [Active]; - PMHx: 09:12 ataxic gait; COPD; Dementia; Hyperlipidemia; Hypertension; ph - Immunization history:: Adult Immunizations unknown. - Social history:: Smoking status: unknown. Screenin:15 Abuse screen: Denies threats or abuse. Denies injuries from another. Nutritional ph screening: No deficits noted. Tuberculosis screening: No symptoms or risk factors identified. Fall Risk Fall in past 12 months (25 points). Secondary diagnosis (15 points) IV access (20 points). Ambulatory Aid- None/Bed Rest/Nurse Assist (0 pts). Gait- Weak (10 pts.). Mental Status- Overestimates/Forgets Limitations (15 pts.). Total Jang Fall Scale indicates High Risk Score (45 or more points). Fall prevention measures have been instituted. Side Rails Up X 2 Placed Close to Nursing Station Frequent Obs/Assessments Occuring As available patient and family educated on Fall Prevention Program and Strategies. Assessment: 09:13 Reassessment: Patient appears in no apparent distress at this time. Patient and/or ph family updated on plan of care and expected duration. Pain level reassessed. While cleaning pt of incontinence bruising noted to R hip, ERP notified. General: Appears in no apparent distress. comfortable, slender, well groomed, Behavior is calm, cooperative, appropriate for age. Pain: Denies pain. Neuro: Level of Consciousness is awake, alert, obeys commands, Oriented to person, place. Cardiovascular: Capillary refill < 3 seconds in bilateral fingers Patient's skin is warm and dry. Respiratory: Airway is patent Respiratory effort is even, unlabored, Respiratory pattern is regular, symmetrical. GI: No signs and/or symptoms were reported involving the gastrointestinal system. Derm: Skin is fragile, is thin, Skin is pink, warm \T\ dry. Bruising that is dark purple, green, on right hip. Derm: Musculoskeletal: Circulation, motion, and sensation intact. Range of motion: intact in all extremities. Injury Description: Abrasion sustained to right elbow is scabbed. 09:40 Reassessment: Pt taken to CT. ph 10:38 Reassessment: Pt remains in radiology, will recollect labs when pt returns to ED. ph 10:59 Reassessment: Patient appears in no apparent distress at this time. Patient and/or ph family updated on plan of care and expected duration. Pain level reassessed. Pt awaken and alert, oriented x 2, recollect sent t lab, awaiting results. 11:40 Reassessment: Patient appears in no apparent distress at this time. Patient and/or ph family updated on plan of care and expected duration. Pain level reassessed. Pt awake and alert, oriented to person and place, straight cath preformed to obtain urine, pt tolerated well, now resting quietly, awaiting lab results. 13:00 Reassessment: Patient appears in no apparent distress at this time. Patient and/or ph family updated on plan of care and expected duration. Pain level reassessed. Pt awake and alert, oriented to person and place. 14:30 Reassessment: Patient appears in no apparent distress at this time. Patient and/or ph family updated on plan of care and expected duration. Pain level reassessed. 15:56 Reassessment: Patient appears in no apparent distress at this time. No changes from previously documented assessment. Patient and/or family updated on plan of care and expected duration. Pain level reassessed. 16:34 Reassessment: Patient appears in no apparent distress at this time. Patient and/or ph family updated on plan of care and expected duration. Pain level reassessed. Pt taken to inpatient room. Vital Signs: 09:22 BP 162 / 86; Pulse 83; Resp 18; Temp 97.7; Pulse Ox 97% on R/A; Weight 58.97 kg; ph 10:00 ph 11:00 BP 160 / 92; Pulse 90; Resp 16; Pulse Ox 98% on R/A; ph 11:40 BP 173 / 94 Supine; Pulse 92; Resp 16; Pulse Ox 100% ; lt1 11:40 BP 155 / 99 Sitting; Pulse 103; lt1 11:41 BP 141 / 107 Standing; Pulse 108; lt1 12:38 BP 138 / 87; Pulse 88; Resp 18; Pulse Ox 98% on R/A; ph 13:30 BP 125 / 85; Pulse 92; Resp 18; Pulse Ox 98% on R/A; ph 14:30 BP 132 / 77; Pulse 85; Resp 16; Temp 97.9; Pulse Ox 98% on R/A; ph 15:30 BP 141 / 78; Pulse 87; Resp 18; Pulse Ox 98% on R/A; ph 16:30 BP 136 / 78; Pulse 86; Resp 19; Temp 97.9; Pulse Ox 99% on R/A; ph 10:00 pt in radiology ph ED Course: 09:04 Patient arrived in ED. ph 09:07 Min Wynn MD is Attending Physician. mh7 09:07 Triage completed. ph 09:13 Arm band placed on Patient placed in an exam room, on a stretcher. ph 09:16 Patient has correct armband on for positive identification. Placed in gown. Bed in low ph position. Call light in reach. Side rails up X2. Pulse ox on. NIBP on. Door closed. Noise minimized. Warm blanket given. Cleaned of incontinence. by Gladys ED-T. 09:22 Chioma Ring, RN is Primary Nurse. ph 09:49 CT Head Brain wo Cont In Process Unspecified. EDMS 10:40 Chest Single View XRAY In Process Unspecified. EDMS 10:40 Pelvis XRAY In Process Unspecified. EDMS 10:40 Hip Right 2 View XRAY In Process Unspecified. EDMS 10:40 Femur Right XRAY In Process Unspecified. EDMS 11:30 Straight cath inserted, using sterile technique, 16 Fr. Specimen obtained. Returned ph clear yellow urine. Patient tolerated well. Patient admitted, IV remains in place. 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 eb 12:30 T\T\S collected, blood band applied to patient. ph 12:[address] Lopez the hospitalist carbonating stone cleaner with Dr. Wynn for patient tt3 consultation. 12:57 CT Abd/Pelvis - IV Contrast Only In Process Unspecified. EDMS 13:57 Romario Romero MD is Hospitalizing Provider. 7 Administered Medications: No medications were administered Outcome: 14:03 Decision to Hospitalize by Provider. 7 16:35 Admitted to Tele accompanied by tech, via stretcher, with chart. ph 16:35 Condition: stable 16:35 Instructed on the need for admit. 16:36 Patient left the ED. ph Signatures: Dispatcher [employer] Chioma Powell RN RN ph Janae Chu Leah lt1 Min Wynn MD MD 7 Apolinar Han tt3 Corrections: (The following items were deleted from the chart) 11:42 11:40 BP 141 / 107; Pulse 108bpm; lt1 lt1
--- NOTE | 2020-01-28 14:12 | P.HP ---
Certification for Inpatient With expected LOS: >2 Midnights Patient will require the following post-hospital care: None Practitioner: I am a practitioner with admitting privileges, knowledge of patient current condition, hospital course, and medical plan of care. Services: Services provided to patient in accordance with Admission requirements found in Title 42 Section 412.3 of the Code of Federal Regulations Patient History Date of Service: 01/28/20 Reason for admission: syncope and anemia History of Present Illness: Pt was found on the floor, /hx of dementia and AMS Low BS patient confused disoriented unable to obtain acquired anti count unable to contact the daughter of the mailbox is full will have the nurses contact the relatives Allergies codeine Allergy (Unknown, Verified 09/11/18 09:03) Unknown - Past Medical/Surgical History Diabetic: No -: HTN -: Hyperlipidemia -: History of Vaginal Cancer -: Melanoma of neck -: History of Uterine Cancer -: Anxiety -: Dementia -: Carotid stenosis to the Right -: CAD -: tremors -: COPD -: ataxic gait -: Hyserectomy -: Cholecystectomy -: Apendectomy -: Cataract Psychosocial/ Personal History: Lives with daughter. - Family History Father -: Hypertension, Cancer Mother -: Heart disease, Stroke - Social History Alcohol use: No CD- Drugs: No Caffeine use: Yes Physical Examination - Physical Exam General: Alert, In no apparent distress HEENT: Atraumatic Neck: Supple Respiratory: Normal air movement Cardiovascular: No edema, Regular rate/rhythm Gastrointestinal: Normal bowel sounds, Soft and benign Musculoskeletal: No clubbing, No swelling Integumentary: No rashes, No breakdown Neurological: Other (Patient moving all extremities) - Studies Laboratory Data (last 24 hrs) 01/28/20 10:50: PT 12.2, INR 1.03, APTT 39.7 H 01/28/20 10:50: WBC 3.2 L, Hgb 7.2 L*, Hct 25.4 L, Plt Count 246 01/28/20 10:50: Sodium 140, Potassium 3.8, BUN 14, Creatinine 1.06, Glucose 91, Magnesium 2.7 H, Total Bilirubin 0.7, AST 14 L, ALT 15, Alkaline Phosphatase 125 H, Lipase 109 Microbiology Data (last 24 hrs): 01/28/20 11:53 Stool Occult Blood - Final Assessment and Plan - Problems (Diagnosis) (1) Anemia Current Visit: Yes Status: Acute Plan: Patient is 84 years of age admitted with fall patient has a history of dementia nonverbal patient has severe microcytic anemia will transfuse 1 unit of packed red blood cells GI Consult chemistries reviewed chest x-rays clear x-rays do not show any fracture chest x-rays also clear vital signs stable guaiac stool is negative patient is on Plavix and aspirin have not reviewed her verified her home medication list Qualifiers: Anemia type: unspecified type Qualified Code(s): D64.9 - Anemia, unspecified - Advance Directives Does patient have a Living Will: Yes Does patient have a Durable POA for Healthcare: Yes
--- NOTE | 2020-01-28 15:35 | EKG ---
Test Date: 2020-01-28 Test Time: 10:04:57 Orchestra Teacher: RAYA MEASUREMENT RESULTS: Intervals: Rate: 88 GA: 146 QRSD: 72 QT: 400 QTc: 484 [place]: P: 83 GA: 146 QRS: 70 T: 73 INTERPRETIVE STATEMENTS: Normal sinus rhythm Normal ECG Compared to ECG 09/10/2018 22:57:13 No significant changes Electronically Signed On 01-28-20 15:35:22 CDT by Adam Messer
[2020-01-28 16:18] LABS: Ferritin 5.5 ng/mL (8-388); Thyroid Stimulating Hormone 1.25 uIU/mL (0.360-3.740)
[2020-01-28 16:56] VITALS: BMI 21.2
[2020-01-28] MEDS: SOD FERRIC GLUC COMPLX/SUCROSE 125 MG in NA CHLORIDE 0.9% 100 ML IV SCH (17:13)
[2020-01-28] MEDS ORDERED: CYANOCOBALAMIN 1000MCG/ML INJ IM ONE (23:20)
[2020-01-28] MEDS: D5 0.45 NS 1,000 ML IV SCH (23:43)
[2020-01-29 06:30] LABS: Absolute Lymphocytes (CBC) 0.3 K/uL (0.7-4.9); Basophils % 0.6 % (0-1.3); Hematocrit 22.8 % (36.0-45.0); Lymphocytes % 6.7 % (15.3-44.8); MPV 7.7 fL (7.6-11.3); RBC Red Blood Cell Count 3.11 M/uL (3.86-4.86)
[2020-01-29 06:33] LABS: Protime INR 1.14
[2020-01-29 06:43] LABS: Albumin 3.4 g/dL (3.4-5.0); Bilirubin Total 0.8 mg/dL (0.2-1.0); Magnesium 2.3 mg/dL (1.8-2.4); Phosphorus 2.9 mg/dL (2.5-4.9); Protein, Total 6.6 g/dL (6.4-8.2)
[2020-01-29] MEDS: CYANOCOBALAMIN 1,000 MCG TAB SL SCH (08:40)
[2020-01-29] MEDS ORDERED: SOD FERRIC GLUC COMPLX/SUCROSE 125 MG in NA CHLORIDE 0.9% 100 ML IV SCH (09:00)
[2020-01-29] MEDS ORDERED: NA CHLORIDE 0.9% 250 ML ONE (09:35)
[2020-01-29] MEDS: SOD FERRIC GLUC COMPLX/SUCROSE 125 MG in NA CHLORIDE 0.9% 100 ML IV SCH (10:58)
--- NOTE | 2020-01-29 13:23 | P.PN ---
Subjective Date of Service: 01/29/20 Primary Care Provider: Unknown Chief Complaint: syncope and anemia Subjective: Demented, Other (Patient doing well this time. Patient to receive transfusion.) Physical Examination - Vital Signs Temperature: 99.4 F Blood Pressure: 156/85 Pulse: 91 Respirations: 17 Pulse Ox (%): 95 - Physical Exam General: Alert, Demented HEENT: Atraumatic Neck: Supple Respiratory: Clear to auscultation bilaterally, Normal air movement Cardiovascular: Normal pulses, Regular rate/rhythm Gastrointestinal: Normal bowel sounds, Soft and benign, Non-distended, No masses, No rebound, No guarding Musculoskeletal: No erythema, No tenderness, No warmth Integumentary: No tenderness/swelling, No erythema, No warmth, No cyanosis Neurological: Normal speech, Normal strength at 5/5 x4 extr, Normal tone, Dementia - Studies Microbiology Data (last 24 hrs): 01/28/20 11:53 Stool Occult Blood - Final Medications List Reviewed: Yes Assessment & Plan Discharge Plan: Home Plan to discharge in: 48 Hours Physician Review Additional Text: Impression: Syncope/Encephalopathy likely related to acute on chronic anemia with iron and B12 deficiency Dementia Hyperlipidemia Hypertension CAD with PVD GERD Chronic pain Depression with anxiety Plan: Syncope/Encephalopathy likely related to acute on chronic anemia with iron and B12 deficiency: Patient with chronic anemia. Patient given IV iron. Hemoglobin still low. Will transfuse 2 units of packed red blood cells. Will monitor hemoglobin closely. No indication of melena or rectal bleeding. Will recheck again tomorrow. Will have physical therapy assess ambulation tomorrow. Patient will require upper GI evaluation as an outpatient. Will advance diet as tolerated. Anticipate improvement over the next 24 hr. Possible discharge as early as tomorrow. Dementia: Restart home medication. Hyperlipidemia: Restart home medication. Hypertension: Blood pressure elevated. I do not see any medication. Will start low-dose metoprolol for blood pressure control peer CAD with PVD: Will continue with aspirin and Plavix GERD: Will provide medication Chronic pain: Provide medication Depression with anxiety: Continue home medication Time Spent Managing Pts Care (In Minutes): 55
[2020-01-29] MEDS: ELUXADOLINE PO SCH ×2 (14:00→21:00)
[2020-01-29] MEDS ORDERED: METOPROLOL TAR 25 MG TAB PO ONE (15:00)
[2020-01-29] MEDS ORDERED: HYDRALAZINE HCL 20 MG/ML VIAL IV PRN (15:53)
[2020-01-29] MEDS ORDERED: TRAMADOL HCL 50 MG TAB PO PRN (15:54)
[2020-01-29] MEDS ORDERED: FUROSEMIDE 20 MG/ 2ML VIAL IV ONE ×2 (16:00→22:35)
[2020-01-29] MEDS: METOPROLOL TAR 25 MG TAB PO SCH (18:00)
[2020-01-29] MEDS: ATORVASTATIN 10 MG TAB PO SCH (22:40)
[2020-01-29] MEDS: ALPRAZOLAM 1 MG TABLET PO PRN (22:42)
[2020-01-30 06:14] LABS: Absolute Lymphocytes (CBC) 1.2 K/uL (0.7-4.9); Basophils % 0.8 % (0-1.3); Hematocrit 36.4 % (36.0-45.0); MPV 7.7 fL (7.6-11.3); RBC Red Blood Cell Count 4.97 M/uL (3.86-4.86)
[2020-01-30 06:25] LABS: Magnesium 2.1 mg/dL (1.8-2.4); Potassium 3.3 mmol/L (3.5-5.1)
[2020-01-30] MEDS: METOPROLOL TAR 25 MG TAB PO SCH ×2 (06:42→18:00)
[2020-01-30] MEDS: IRON PO SCH (09:00)
[2020-01-30] MEDS ORDERED: VANCOMYCIN 1 GM in NA CHLORIDE 0.9% 500 ML IVPB SCH (09:00)
[2020-01-30] MEDS ORDERED: VANCOMYCIN/NS 1 gm 1 GM/250 ML BAG IVPB SCH (09:00)
[2020-01-30] MEDS ORDERED: HOME MED 1 EA UNK (Simvastatin [Simvastatin] 1 TAB) PO SCH (09:00)
[2020-01-30] MEDS: HERB PO SCH (09:00)
[2020-01-30] MEDS: ELUXADOLINE PO SCH ×3 (09:00→20:22)
[2020-01-30] MEDS ORDERED: CALCIUM CARBONATE PO SCH (09:00)
[2020-01-30] MEDS ORDERED: CEFEPIME 1 GM/VIAL IV SCH (09:00)
[2020-01-30] MEDS: FOLIC ACID PO SCH (09:00)
[2020-01-30] MEDS: ENSURE HIGH PROTEIN 237 ML CAN PO SCH ×3 (09:00→20:22)
[2020-01-30] MEDS: MV MN PO SCH (09:00)
[2020-01-30] MEDS: CLOPIDOGREL 75 MG TABLET PO SCH (09:22)
[2020-01-30] MEDS: CITALOPRAM 10 MG TABLET PO SCH (09:22)
[2020-01-30] MEDS: CALCIUM CARBONATE 500 MG TAB PO SCH (09:22)
[2020-01-30] MEDS: DONEPEZIL HCL 5 MG TAB PO SCH (09:22)
[2020-01-30] MEDS: CYANOCOBALAMIN 1,000 MCG TAB SL SCH (09:22)
[2020-01-30] MEDS: ASPIRIN 81 MG CHEWABLE TABLET PO SCH (09:23)
[2020-01-30] MEDS: CEFEPIME/SWI 1gm 10 ML IVP SCH ×2 (09:23→20:22)
[2020-01-30] MEDS: GABAPENTIN 100 MG CAP PO SCH (09:23)
[2020-01-30] MEDS: D5 0.45 NS 1,000 ML IV SCH (10:16)
--- NOTE | 2020-01-30 15:24 | P.PN ---
Subjective Date of Service: 01/30/20 Primary Care Provider: Unknown Chief Complaint: syncope and anemia Subjective: Improving, Doing well Physical Examination - Vital Signs Temperature: 98 F Blood Pressure: 148/69 Pulse: 71 Respirations: 18 Pulse Ox (%): 97 - Physical Exam General: Alert HEENT: Atraumatic Neck: Supple Respiratory: Clear to auscultation bilaterally, Normal air movement Cardiovascular: Normal pulses, Regular rate/rhythm Gastrointestinal: Normal bowel sounds, Soft and benign, Non-distended, No masses, No rebound, No guarding Neurological: Normal speech, Normal strength at 5/5 x4 extr, Normal tone, Normal affect - Studies Medications List Reviewed: Yes Assessment & Plan Discharge Plan: Home Plan to discharge in: 24 Hours Physician Review Additional Text: Impression: Syncope/Encephalopathy likely related to acute on chronic anemia with iron and B12 deficiency Bacteremia with 1/2 blood cultures positive for gram-negative rods Dementia Hyperlipidemia Hypertension CAD with PVD GERD Chronic pain Depression with anxiety Plan: Syncope/Encephalopathy likely related to acute on chronic anemia with iron and B12 deficiency: Patient received 2 units of peripheral blood cells. Hemoglobin now stable. Continue with iron and B12 supplementation. Will have physical therapy evaluate patient. Fall precautions in place. Patient will require GI evaluation as an outpatient. No indication of melena or rectal bleeding at this time. 1/2 blood cultures positive. Antibiotics initiated. Await blood culture finding. Suspect contaminant. Will continue to reassess. Anticipate discharge as early as tomorrow pending evaluation Bacteremia with 1/2 blood cultures positive for Gram-negative rods: Blood culture was positive. Patient started on cefepime and vancomycin. Will obtain blood cultures again. Suspect contaminant. Pro calcitonin negative. Await results. Dementia: Continue home medication. Hyperlipidemia: Continue home medication. Hypertension: Patient started on blood pressure medication. Will continue to monitor and adjust CAD with PVD: Will continue with aspirin and Plavix GERD: Will provide medication Chronic pain: Provide medication Depression with anxiety: Continue home medication Time Spent Managing Pts Care (In Minutes): 55
[2020-01-30] MEDS: ALPRAZOLAM 1 MG TABLET PO PRN (20:22)
[2020-01-30] MEDS: ATORVASTATIN 10 MG TAB PO SCH (20:22)
[2020-01-31] MEDS: METOPROLOL TAR 25 MG TAB PO SCH ×2 (05:29→16:37)
[2020-01-31 06:07] LABS: Absolute Lymphocytes (CBC) 1.1 K/uL (0.7-4.9); Basophils % 0.5 % (0-1.3); Hematocrit 35.5 % (36.0-45.0); Lymphocytes % 20.6 % (15.3-44.8); MPV 7.8 fL (7.6-11.3); RBC Red Blood Cell Count 4.67 M/uL (3.86-4.86)
[2020-01-31 06:21] LABS: Magnesium 2.2 mg/dL (1.8-2.4); Potassium 3.5 mmol/L (3.5-5.1)
[2020-01-31] MEDS ORDERED: NA CHLORIDE 0.9% 500 ML IV ONE (07:29)
[2020-01-31] MEDS: NA CHLORIDE 0.9% 1,000 ML IV SCH ×2 (08:26→16:37)
[2020-01-31] MEDS: DONEPEZIL HCL 5 MG TAB PO SCH (08:27)
[2020-01-31] MEDS: CITALOPRAM 10 MG TABLET PO SCH (08:27)
[2020-01-31] MEDS: ASPIRIN 81 MG CHEWABLE TABLET PO SCH (08:27)
[2020-01-31] MEDS: CALCIUM CARBONATE 500 MG TAB PO SCH (08:27)
[2020-01-31] MEDS: FERROUS SULFATE 325 MG TAB PO SCH (08:27)
[2020-01-31] MEDS: CEFEPIME/SWI 1gm 10 ML IVP SCH (08:27)
[2020-01-31] MEDS: CLOPIDOGREL 75 MG TABLET PO SCH (08:27)
[2020-01-31] MEDS: GABAPENTIN 100 MG CAP PO SCH (08:28)
[2020-01-31] MEDS: MV MN PO SCH (08:28)
[2020-01-31] MEDS: FOLIC ACID PO SCH (08:28)
[2020-01-31] MEDS: HERB PO SCH (08:28)
[2020-01-31] MEDS: CYANOCOBALAMIN 1,000 MCG TAB SL SCH (08:28)
[2020-01-31] MEDS: IRON PO SCH (08:28)
[2020-01-31] MEDS: ELUXADOLINE PO SCH ×2 (09:00→13:25)
[2020-01-31] MEDS: ENSURE HIGH PROTEIN 237 ML CAN PO SCH ×3 (09:00→20:59)
[2020-01-31 10:26] LABS: Urine White Blood Cell Casts OK
[2020-01-31 10:27] LABS: Anisocytosis 2+; Blood Morphology Comment NOTED (NOT SEEN); Platelet Estimate ADEQ
[2020-01-31 12:35] LABS: Potassium 3.7 mmol/L (3.5-5.1)
[2020-01-31] MEDS: ATORVASTATIN 10 MG TAB PO SCH (20:59)
[2020-02-01] MEDS: METOPROLOL TAR 25 MG TAB PO SCH (05:52)
[2020-02-01 06:40] LABS: Absolute Lymphocytes (CBC) 1.1 K/uL (0.7-4.9); Basophils % 0.4 % (0-1.3); Hematocrit 33.3 % (36.0-45.0); Lymphocytes % 25.7 % (15.3-44.8); MPV 8.1 fL (7.6-11.3); RBC Red Blood Cell Count 4.18 M/uL (3.86-4.86)
[2020-02-01 06:41] LABS: Magnesium 2.1 mg/dL (1.8-2.4); Potassium 3.9 mmol/L (3.5-5.1)
[2020-02-01] MEDS: NA CHLORIDE 0.9% 1,000 ML IV SCH (07:30)
[2020-02-01] MEDS: DONEPEZIL HCL 5 MG TAB PO SCH (09:00)
[2020-02-01] MEDS: HERB PO SCH (09:00)
[2020-02-01] MEDS: ENSURE HIGH PROTEIN 237 ML CAN PO SCH (09:00)
[2020-02-01] MEDS: FOLIC ACID PO SCH (09:00)
[2020-02-01] MEDS: MV MN PO SCH (09:00)
[2020-02-01] MEDS: IRON PO SCH (09:00)
[2020-02-01] MEDS: FERROUS SULFATE 325 MG TAB PO SCH (10:17)
[2020-02-01] MEDS: ASPIRIN 81 MG CHEWABLE TABLET PO SCH (10:17)
[2020-02-01] MEDS: CYANOCOBALAMIN 1,000 MCG TAB SL SCH (10:17)
[2020-02-01] MEDS: CALCIUM CARBONATE 500 MG TAB PO SCH (10:17)
[2020-02-01] MEDS: CLOPIDOGREL 75 MG TABLET PO SCH (10:17)
[2020-02-01] MEDS: CITALOPRAM 10 MG TABLET PO SCH (10:18)
--- NOTE | 2020-02-01 11:05 | P.PN ---
Subjective Date of Service: 02/01/20 Primary Care Provider: Unknown Chief Complaint: syncope and anemia Subjective: No new changes, Improving Review of Systems 10-point ROS is otherwise unremarkable Physical Examination - Vital Signs Temperature: 97.4 F Blood Pressure: 150/72 Pulse: 65 Respirations: 16 Pulse Ox (%): 94 - Physical Exam General: Alert, In no apparent distress, Cooperative HEENT: Atraumatic, Normocephalic Neck: Supple, 2+ carotid pulse no bruit Respiratory: Clear to auscultation bilaterally, Normal air movement Cardiovascular: Normal pulses, Regular rate/rhythm, Normal S1 S2 Capillary refill: <2 Seconds Gastrointestinal: Soft and benign, W/out hepatosplenomegaly Musculoskeletal: No clubbing, No swelling Integumentary: No rashes Neurological: Normal speech, Normal strength at 5/5 x4 extr Lymphatics: No axilla or inguinal lymphadenopathy Rectal: Deferred - Studies Laboratory Last Values WBC 3.9 K/uL (4.3-10.9) L D 01/29/20 05:54 RBC 3.11 M/uL (3.86-4.86) L 01/29/20 05:54 Hgb 6.8 g/dL (12.0-15.0) L* 01/29/20 05:54 Hct 22.8 % (36.0-45.0) L 01/29/20 05:54 MCV 73.4 fL (80-100) L 01/29/20 05:54 MCH 21.9 pg (27.0-35.0) L 01/29/20 05:54 MCHC 29.8 g/dL (32.0-36.0) L 01/29/20 05:54 RDW 19.2 % (12.1-15.2) H 01/29/20 05:54 Plt Count 221 K/uL (152-406) 01/29/20 05:54 MPV 7.7 fL (7.6-11.3) 01/29/20 05:54 Neutrophils % 85.6 % (41.7-73.7) H 01/29/20 05:54 Lymphocytes % 6.7 % (15.3-44.8) L 01/29/20 05:54 Monocytes % 6.5 % (3.3-12.3) 01/29/20 05:54 Eosinophils % 0.6 % (0-4.4) 01/29/20 05:54 Basophils % 0.6 % (0-1.3) 01/29/20 05:54 Absolute Neutrophils 3.4 K/uL (1.8-8.0) 01/29/20 05:54 Segmented Neutrophils 59 % (40-80) 01/28/20 10:50 Absolute Lymphocytes 0.3 K/uL (0.7-4.9) L 01/29/20 05:54 Lymphocytes 23 % (15-42) 01/28/20 10:50 Monocytes 17 % (0-10) H 01/28/20 10:50 Absolute Monocytes 0.3 K/uL (0.1-1.3) 01/29/20 05:54 Eosinophils 1 % (0-3) 01/28/20 10:50 Absolute Eosinophils 0.0 K/uL (0-0.5) 01/29/20 05:54 Absolute Basophils 0.0 K/uL (0-0.5) 01/29/20 05:54 Hypochromasia 1+ 01/28/20 10:50 Poikilocytosis 1+ 01/28/20 10:50 Anisocytosis 2+ 01/28/20 10:50 Microcytosis 1+ 01/28/20 10:50 Elliptocytes 1+ 01/28/20 10:50 Morphology Comment Noted (NOT SEEN) 01/28/20 10:50 PT 13.4 SECONDS (9.5-12.5) H 01/29/20 05:54 INR 1.14 01/29/20 05:54 APTT 43.9 SECONDS (24.3-36.9) H 01/29/20 05:54 Sodium 143 mmol/L (136-145) 01/29/20 05:54 Potassium 4.0 mmol/L (3.5-5.1) 01/29/20 05:54 Chloride 111 mmol/L (98-107) H 01/29/20 05:54 Carbon Dioxide 24 mmol/L (21-32) 01/29/20 05:54 BUN 9 mg/dL (7-18) 01/29/20 05:54 Creatinine 0.89 mg/dL (0.55-1.3) 01/29/20 05:54 Estimated GFR 61 mL/min (=/>90) L 01/29/20 05:54 Glucose 100 mg/dL (74-106) 01/29/20 05:54 POC Glucose 105 mg/dL (65-120) 01/29/20 11:46 Calcium 8.2 mg/dL (8.5-10.1) L 01/29/20 05:54 Phosphorus 2.9 mg/dL (2.5-4.9) 01/29/20 05:54 Magnesium 2.3 mg/dL (1.8-2.4) 01/29/20 05:54 Iron 21.0 ug/dL (50-170) L 01/28/20 15:35 TIBC 420 ug/dL (250-460) 01/28/20 15:35 Transferrin 300 mg/dL (200-360) 01/28/20 15:35 Transferrin % Sat 5.0 % (20.0-50.0) L 01/28/20 15:35 Ferritin 5.5 ng/mL (8-388) L 01/28/20 15:35 Total Bilirubin 0.8 mg/dL (0.2-1.0) 01/29/20 05:54 Direct Bilirubin 0.2 mg/dL (0-0.2) 01/28/20 10:50 AST 11 U/L (15-37) L 01/29/20 05:54 ALT 14 U/L (12-78) 01/29/20 05:54 Alkaline Phosphatase 109 U/L (45-117) 01/29/20 05:54 Creatine Kinase 95 U/L (26-192) 01/28/20 10:50 CK-MB (CK-2) 1.5 ng/mL (0.3-3.6) 01/28/20 10:50 Rapid Troponin I < 0.02 ng/mL (0.0-0.045) 01/28/20 10:50 Serum Total Protein 6.6 g/dL (6.4-8.2) 01/29/20 05:54 Albumin 3.4 g/dL (3.4-5.0) 01/29/20 05:54 Globulin 3.2 g/dL (2.3-3.5) 01/29/20 05:54 Albumin/Globulin Ratio 1.1 (1.1-1.8) 01/29/20 05:54 Lipase 109 U/L (73-393) 01/28/20 10:50 Vitamin B12 300 pg/mL (193-986) 01/28/20 15:35 TSH 1.250 uIU/mL (0.360-3.740) 01/28/20 15:35 Urine Color Yellow 01/28/20 11:20 Urine Appearance Clear 01/28/20 11:20 Urine pH 6.0 (5.0-7.0) 01/28/20 11:31 Ur Specific [place] 1.020 (1.005-1.030) 01/28/20 11:31 Glucose (UA)(Auto) Negative (NEG) 01/28/20 11:31 Urine Ketones Negative (NEG) 01/28/20 11:31 Urine Blood Negative (NEG) 01/28/20 11:31 Urine Nitrite Negative (NEG) 01/28/20 11:31 Urine Bilirubin Negative (NEG) 01/28/20 11:20 Urine Urobilinogen 1.0 mg/dL (0.2-1.0) 01/28/20 11:20 Ur Leukocyte Esterase Negative (NEG) 01/28/20 11:31 Urine Total Protein Negative (NEG) 01/28/20 11:31 ABO/Rh O NEGATIVE 01/28/20 12:36 Solid Phase Ab Screen Negative 01/28/20 12:36 Crossmatch See Detail 01/28/20 12:36 Microbiology Data (last 24 hrs): 01/28/20 15:35 Blood - Blood Blood Culture Gram Stain - Final Medications List Reviewed: Yes Assessment & Plan - Problems (Diagnosis) (1) Altered mental status Onset Date: 03/08/16 Current Visit: No Status: Acute (2) Anemia Current Visit: No Status: Acute Qualifiers: Anemia type: unspecified type Qualified Code(s): D64.9 - Anemia, unspecified Discharge Plan: Home Plan to discharge in: 24 Hours Physician Review Additional Text: Impression: Syncope/Encephalopathy likely related to acute on chronic anemia with iron and B12 deficiency Bacteremia with 1/2 blood cultures positive for gram-negative rods Dementia Hyperlipidemia Hypertension CAD with PVD GERD Chronic pain Depression with anxiety Plan: Syncope/Encephalopathy likely related to acute on chronic anemia with iron and B12 deficiency: Patient received 2 units of peripheral blood cells. Hemoglobin now stable. Continue with iron and B12 supplementation. Will have physical therapy evaluate patient. Fall precautions in place. Patient will require GI evaluation as an outpatient. No indication of melena or rectal bleeding at this time. 1/2 blood cultures positive. Antibiotics initiated. Await blood culture finding. Suspect contaminant. Will continue to reassess. Anticipate discharge as early as tomorrow pending evaluation Bacteremia with 1/2 blood cultures positive for Gram-negative rods: Blood culture was positive. Patient started on cefepime and vancomycin. Will obtain blood cultures again. Suspect contaminant. Pro calcitonin negative. Await results. Dementia: Continue home medication. Hyperlipidemia: Continue home medication. Hypertension: Patient started on blood pressure medication. Will continue to monitor and adjust CAD with PVD: Will continue with aspirin and Plavix GERD: Will provide medication Chronic pain: Provide medication Depression with anxiety: Continue home medication 02/01/2020 The patient is awake alert Getting physical therapy Wants to go home Denies any syncope or presyncope episodes Hemoglobin monitored Culture is negative so far Continue home medications and titrate as needed social media intern consulted for home health and placement Possible Dc today if home health is arranged and the family is agreeable Time Spent Managing Pts Care (In Minutes): 37
[2020-02-01 12:23] VITALS: BP 138/66; TEMP 98
--- NOTE | 2020-02-01 13:26 | P.DS ---
Admission Date: 01/29/20 Discharge Date: 02/01/20 Primary Care Provider: Unknown Disposition: DC HOME/HOME HEALTH CARE Discharge Condition: GOOD Reason for Admission: syncope and anemia - Problems (1) Altered mental status Onset Date: 03/08/16 Current Visit: No Status: Acute (2) Anemia Current Visit: No Status: Acute Qualifiers: Anemia type: unspecified type Qualified Code(s): D64.9 - Anemia, unspeci fied Brief History of Present Illness: 84 year old female who was found on floor by daughter, reports that she was attempting to go to the restroom and fell, daughter states that she was seen in bed at 5 am so fell sometime after that, pt denies pain, no injuries noted, hx of dementia, daughter reports that pt has been more confused than usual and has been falling recently, Patient denies a cough. Patient denies shortness of breath or difficulty breathing. Patient denies subjective temperature greater than 100.4F prior to today's visit. Hospital Course: Syncope/Encephalopathy likely related to acute on chronic anemia with iron and B12 deficiency Bacteremia with 1/2 blood cultures positive for gram-negative rods Dementia Hyperlipidemia Hypertension CAD with PVD GERD Chronic pain Depression with anxiety Plan: Syncope/Encephalopathy likely related to acute on chronic anemia with iron and B12 deficiency: Patient received 2 units of peripheral blood cells. Hemoglobin now stable. Continue with iron and B12 supplementation. Will have physical therapy evaluate patient. Fall precautions in place. Patient will require GI evaluation as an outpatient. No indication of melena or rectal bleeding at this time. 1/2 blood cultures positive. Antibiotics initiated. Await blood culture finding. Suspect contaminant. Will continue to reassess. Anticipate discharge as early as tomorrow pending evaluation Bacteremia with 1/2 blood cultures positive for Gram-negative rods: Blood culture was positive. Patient started on cefepime and vancomycin. Will obtain blood cultures again. Suspect contaminant. Pro calcitonin negative. Await results. Dementia: Continue home medication. Hyperlipidemia: Continue home medication. Hypertension: Patient started on blood pressure medication. Will continue to monitor and adjust CAD with PVD: Will continue with aspirin and Plavix GERD: Will provide medication Chronic pain: Provide medication Depression with anxiety: Continue home medication 02/01/2020 The patient is awake alert Getting physical therapy Wants to go home Denies any syncope or presyncope episodes Hemoglobin monitored Culture is negative so far Continue home medications and titrate as needed social insurance adviser consulted for home health and placement Possible Dc today if home health is arranged and the family is agreeable Vital Signs/Physical Exam: Temp Pulse Resp BP Pulse Ox 98 F 76 16 138/66 97 02/01/20 12:00 02/01/20 12:00 02/01/20 12:00 02/01/20 12:00 02/01/20 12:00 General: Alert, In no apparent distress HEENT: Atraumatic, Normocephalic Neck: Supple Respiratory: Clear to auscultation bilaterally, Normal air movement Cardiovascular: Normal pulses, Regular rate/rhythm Capillary refill: <2 Seconds Gastrointestinal: Soft and benign Musculoskeletal: No clubbing, No swelling Neurological: Normal strength at 5/5 x4 extr, Dementia Rectal: Deferred Laboratory Data at Discharge: WBC 4.3 K/uL (4.3-10.9) D 02/01/20 05:22 Hgb 10.3 g/dL (12.0-15.0) L 02/01/20 05:22 Hct 33.3 % (36.0-45.0) L 02/01/20 05:22 Plt Count 182 K/uL (152-406) 02/01/20 05:22 PT 13.4 SECONDS (9.5-12.5) H 01/29/20 05:54 INR 1.14 01/29/20 05:54 APTT 43.9 SECONDS (24.3-36.9) H 01/29/20 05:54 Sodium 143 mmol/L (136-145) 02/01/20 05:22 Potassium 3.9 mmol/L (3.5-5.1) 02/01/20 05:22 BUN 19 mg/dL (7-18) H 02/01/20 05:22 Creatinine 1.00 mg/dL (0.55-1.3) 02/01/20 05:22 Glucose 85 mg/dL (74-106) 02/01/20 05:22 Phosphorus 2.9 mg/dL (2.5-4.9) 01/29/20 05:54 Magnesium 2.1 mg/dL (1.8-2.4) 02/01/20 05:22 Total Bilirubin 0.8 mg/dL (0.2-1.0) 01/29/20 05:54 AST 11 U/L (15-37) L 01/29/20 05:54 ALT 14 U/L (12-78) 01/29/20 05:54 Alkaline Phosphatase 109 U/L (45-117) 01/29/20 05:54 Lipase 109 U/L (73-393) 01/28/20 10:50 Home Medications: Alprazolam [Xanax] 1 tab PO BID 01/28/20 Aspirin 1 tab PO DAILY 01/28/20 Calcium Carbonate 1 tab PO DAILY 01/28/20 Citalopram [Celexa*] 1 tab PO DAILY 01/28/20 Clopidogrel Bisulfate [Plavix*] 1 tab PO DAILY 01/28/20 Donepezil [Aricept*] 1 tab PO DAILY 01/28/20 Eluxadoline [Viberzi] 1 tab PO TID 01/28/20 Gabapentin 1 tab PO DAILY 01/28/20 Garlic 1 tab PO DAILY 01/28/20 Guaifenesin [Mucus Relief] 1 tab PO Q4H PRN 01/28/20 Mv-Mn/Iron/Folic Acid/Herb 190 [Vitamin D3 Complete Caplet] 1 tab PO DAILY 01/28/20 Omeprazole 1 tab PO DAILY 01/28/20 Simvastatin 1 tab PO DAILY 01/28/20 Cyanocobalamin [Vitamin B-12*] 1,000 mcg SL DAILY #30 tab 02/01/20 Ferrous Sulfate [Ferrous Sulfate*] 325 mg PO DAILY #30 tab 02/01/20 Metoprolol Tartrate [Lopressor*] 25 mg PO BID 6AM 6PM #60 tab 02/01/20 New Medications: Ferrous Sulfate [Ferrous Sulfate*] 325 mg PO DAILY #30 tab Metoprolol Tartrate [Lopressor*] 25 mg PO BID 6AM 6PM #60 tab Cyanocobalamin [Vitamin B-12*] 1,000 mcg SL DAILY #30 tab Diet: AHA Activity: Ad chapis Followup: Sushil Shaffer MD [ASSOCIATE-ACTIVE - CAN ADMIT] - (Call to make an appointment. ) Time spent managing pt's care (in minutes): 35
[2020-02-01 13:27] VITALS: O2SAT 95
== END 2020-02-01 15:26 | disposition home health service (06) | DRG 812 ==
LOC: ER 09:03 → SUPCPDRO 09:03 → ERHOLD 14:02 → 4TH 16:18 → 2ND 21:27 → OBSVTOIN 01-29 13:55
PROVIDERS: ADMIT Internal Medicine Sleep Medicine; ATTEND Family Medicine
PROC: 30233N1 Transfusion of Nonautologous Red Blood Cells into Peripheral Vein, Percutaneous Approach (ICD-10-PCS; principal; 2020-01-29)
DX: D50.9 Iron deficiency anemia, unspecified (principal); R78.81 Bacteremia; G93.40 Encephalopathy, unspecified; D51.3 Other dietary vitamin B12 deficiency anemia; I10 Essential (primary) hypertension; E78.5 Hyperlipidemia, unspecified; Z85.54 Personal history of malignant neoplasm of ureter; I25.10 Atherosclerotic heart disease of native coronary artery without angina pectoris; J44.9 Chronic obstructive pulmonary disease, unspecified; Z90.710 Acquired absence of both cervix and uterus; Z90.49 Acquired absence of other specified parts of digestive tract; Z79.899 Other long term (current) drug therapy; Z79.82 Long term (current) use of aspirin; F03.90 Unspecified dementia, unspecified severity, without behavioral disturbance, psychotic disturbance, mood disturbance, and anxiety; I73.9 Peripheral vascular disease, unspecified; K21.9 Gastro-esophageal reflux disease without esophagitis; G89.29 Other chronic pain; F41.8 Other specified anxiety disorders; Z88.5 Allergy status to narcotic agent; Z85.89 Personal history of malignant neoplasm of other organs and systems; W18.30XA Fall on same level, unspecified, initial encounter; Z79.52 Long term (current) use of systemic steroids
CPT/HCPCS: 36415; 36430; 51702; 70450; 71045; 72170; 74177; 80048; 80053; 80076; 81003; 82272; 82550; 82553; 82607; 82728; 82947; 83540; 83690; 83735; 84100; 84145; 84443; 84466; 84484; 85014; 85018; 85025; 85610; 85730; 86850; 86900; 86901; 87040; 87205; 93005; 94760; 97116; 97161; 99285; G0378; J0360; J0692; J1940; J2916; J3370; J3420; J7030; J7040; J7799; P9016; Q9967

== ENCOUNTER 2020-02-17 12:12 | Emergency (ER) | payer OTHER ==
--- NOTE | 2020-02-17 14:58 | RAD REPORT ---
EXAM DESCRIPTION: RAD - Lumbar Spine 3 Views - 02/17/2020 2:40 pm CLINICAL HISTORY: PAIN Radiculopathy COMPARISON: SPINE LUMBAR W OBLIQUE dated 11/08/2015; LUMBAR SPINE 3 VIEWS dated 05/20/2011; LUMBAR SPIN E 3 VIEWS dated 06/16/2001 FINDINGS: Diffuse osteopenia is seen. Moderate degenerative levoscoliosis is present of the lumbar s pine. Degenerative changes are noted particularly prominent at L4-5. An acute fracture is not seen.
--- NOTE | 2020-02-17 15:39 | ER ---
Nurse's Notes [facility] Name: Ellie Barnhart Age: 84 yrs Sex: Female : 1935 Arrival Date: 02/17/2020 Time: 12:13 Bed 8 Private MD: Diagnosis: Fracture of coccyx-Clinical;Low back pain Presentation: 02/16 12:14 Chief complaint: EMS states: Pt is from home, home health nurse reports that pt has had ph multiple falls recently, last known fall approx 4 days ago and pt had bruising to R hip but was able to ambulate, today the bruising has worsened and pt is unable to ambulate, unknown if pt has fallen again. Coronavirus screen: Patient denies a cough. Patient denies shortness of breath or difficulty breathing. Patient denies measured and/or subjective temperature greater than 100.4F prior to today's visit. Patient denies travel on a cruise ship or to a country the [facility] currently lists as an affected area. Patient denies contact with known and/or suspected case of COVID-19. Ebola Screen: No symptoms or risks identified at this time. Initial Sepsis Screen: Does the patient meet any 2 criteria? No. Patient's initial sepsis screen is negative. Does the patient have a suspected source of infection? No. Patient's initial sepsis screen is negative. Risk Assessment: Do you want to hurt yourself or someone else? Patient reports no desire to harm self or others. Onset of symptoms was February 17, 2020. 12:14 Method Of Arrival: EMS: [facility] ph 12:14 Acuity: HATTIE 3 ph Historical: - Allergies: 12:44 Codeine; ph - Home Meds: 12:44 alprazolam 1 mg Oral tab 1 tab twice a day [Active]; Aspir-81 81 mg Oral TbEC 1 tab ph once daily [Active]; calcium carbonate 600 mg (1,500 mg) Oral tab [Active]; citalopram 10 mg tab 1 tab once daily [Active]; clopidogrel 75 mg Oral tab 1 tab once daily [Active]; donepezil 5 mg Oral tab 1 tab once daily [Active]; gabapentin 100 mg Oral cap [Active]; garlic 1 mg Oral cap [Active]; Mucus Relief 400 mg Oral tab 1 tab every 4 hours [Active]; omeprazole 40 mg Oral cpDR 1 cap once daily [Active]; simvastatin 20 mg Oral tab 1 tab once daily [Active]; Viberzi 75 mg Oral tab three times a day [Active]; Vitamin D3 Complete 18 mg iron-800 mcg-150 mg Oral tab [Active]; - PMHx: 12:44 ataxic gait; COPD; Dementia; Hyperlipidemia; Hypertension; ph - Immunization history:: Adult Immunizations unknown. - Social history:: Smoking status: unknown. Screenin:03 Abuse screen: Denies threats or abuse. Denies injuries from another. Nutritional ph screening: No deficits noted. Tuberculosis screening: No symptoms or risk factors identified. Fall Risk Fall in past 12 months (25 points). Secondary diagnosis (15 points) dementia, No IV (0 pts). Ambulatory Aid- None/Bed Rest/Nurse Assist (0 pts). Gait- Weak (10 pts.). Mental Status- Overestimates/Forgets Limitations (15 pts.). Total Jang Fall Scale indicates High Risk Score (45 or more points). Fall prevention measures have been instituted. Side Rails Up X 2 Placed Close to Nursing Station Frequent Obs/Assessments Occuring As available patient and family educated on Fall Prevention Program and Strategies. Assessment: 13:00 General: Appears in no apparent distress. comfortable, slender, Behavior is calm, ph cooperative, appropriate for age. Pain: Complains of pain in right hip. Neuro: Level of Consciousness is awake, alert, obeys commands, Oriented to person, place. Cardiovascular: Capillary refill < 3 seconds in bilateral fingers Patient's skin is warm and dry. Respiratory: Airway is patent Respiratory effort is even, unlabored. Derm: Skin is intact, is fragile, is thin, Skin is pink, warm \T\ dry. Bruising that is dark purple, on right hip. Musculoskeletal: Circulation, motion, and sensation intact. Range of motion: intact in all extremities. 14:00 Reassessment: Patient appears in no apparent distress at this time. No changes from ph previously documented assessment. Patient and/or family updated on plan of care and expected duration. Pain level reassessed. 15:00 Reassessment: Patient appears in no apparent distress at this time. No changes from ph previously documented assessment. Patient and/or family updated on plan of care and expected duration. Pain level reassessed. 16:01 Reassessment: Patient appears in no apparent distress at this time. Patient and/or ph family updated on plan of care and expected duration. Pain level reassessed. Spoke to pt's daughter who states that she is on her way to pick her up. Vital Signs: 12:14 BP 143 / 79; Pulse 75; Resp 18; Temp 98.3; Pulse Ox 95% on R/A; Weight 52.16 kg; ph 14:17 BP 154 / 76; Pulse 74; Resp 16; Pulse Ox 97% on R/A; mh5 15:41 BP 99 / 54; Pulse 70; Resp 16; Temp 98.0(TE); Pulse Ox 98% on R/A; mh5 17:15 BP 114 / 80; Pulse 72; Resp 16; Temp 97.9; Pulse Ox 98% on R/A; ph ED Course: 12:13 Patient arrived in ED. am2 12:16 Elder Singh MD is Attending Physician. kdr 12:18 Triage completed. ph 12:39 Chioma Ring, RN is Primary Nurse. ph 12:44 Arm band placed on Patient placed in an exam room. ph 14:04 Patient has correct armband on for positive identification. Placed in gown. Call light ph in reach. Side rails up X2. network desktop support specialist on. Pulse ox on. Sitter at bedside. Door closed. Noise minimized. Warm blanket given. 14:40 Lumbar Spine (3 Views) XRAY In Process Unspecified. EDMS 15:41 Diet: Patient given snack. mh5 17:14 No provider procedures requiring assistance completed. Patient did not have IV access ph during this emergency room visit. Administered Medications: No medications were administered Outcome: 15:38 Discharge ordered by . kdr 17:14 Discharged to home via wheelchair, with family. ph 17:14 Condition: good 17:14 Discharge instructions given to family, Instructed on discharge instructions, follow up and referral plans. Demonstrated understanding of instructions, follow-up care. 17:16 Patient left the ED. ph Signatures: Dispatcher [employer] EDMS Elder Singh MD MD kdr Chioma Ring RN RN ph Christina Negrete 5 Juliana Gibbs am2 Corrections: (The following items were deleted from the chart) 14:18 14:17 BP 154 / 76; Pulse 74bpm; Resp 16bpm; Pulse Ox 97% 2 lpm Nasal Cannula; mh5 mh5
--- NOTE | 2020-02-17 15:39 | EDPHYS ---
Physician Documentation [facility] Name: Ellie Barnhart Age: 84 yrs Sex: Female : 1935 Arrival Date: 02/17/2020 Time: 12:13 Bed 8 Private MD: ED Physician Elder Singh HPI: 02/16 18:47 This 84 yrs old Female presents to ER via EMS with complaints of Hip Pain. kdr 18:47 This 84 yrs old Female presents to ER via EMS with complaints of buttock pain.kdr 18:48 Details of fall: The patient fell from an upright position, while standing. Onset: The kdr symptoms/episode began/occurred suddenly, just prior to arrival. Associated injuries: The patient sustained Buttock pain. Severity of symptoms: At their worst the symptoms were mild, in the emergency department the symptoms are unchanged. The patient has experienced similar episodes in the past, a few times. The patient has not recently seen a physician. Historical: - Allergies: 12:44 Codeine; ph - Home Meds: 12:44 alprazolam 1 mg Oral tab 1 tab twice a day [Active]; Aspir-81 81 mg Oral TbEC 1 tab ph once daily [Active]; calcium carbonate 600 mg (1,500 mg) Oral tab [Active]; citalopram 10 mg tab 1 tab once daily [Active]; clopidogrel 75 mg Oral tab 1 tab once daily [Active]; donepezil 5 mg Oral tab 1 tab once daily [Active]; gabapentin 100 mg Oral cap [Active]; garlic 1 mg Oral cap [Active]; Mucus Relief 400 mg Oral tab 1 tab every 4 hours [Active]; omeprazole 40 mg Oral cpDR 1 cap once daily [Active]; simvastatin 20 mg Oral tab 1 tab once daily [Active]; Viberzi 75 mg Oral tab three times a day [Active]; Vitamin D3 Complete 18 mg iron-800 mcg-150 mg Oral tab [Active]; - PMHx: 12:44 ataxic gait; COPD; Dementia; Hyperlipidemia; Hypertension; ph - Immunization history:: Adult Immunizations unknown. - Social history:: Smoking status: unknown. ROS: 18:48 Constitutional: Negative for fever, chills, and weight loss, Eyes: Negative for injury, kdr pain, redness, and discharge, ENT: Negative for injury, pain, and discharge, Neck: Negative for injury, pain, and swelling, Cardiovascular: Negative for chest pain, palpitations, and edema, Respiratory: Negative for shortness of breath, cough, wheezing, and pleuritic chest pain, Abdomen/GI: Negative for abdominal pain, nausea, vomiting, diarrhea, and constipation, : Negative for injury, bleeding, discharge, and swelling, MS/Extremity: Negative for injury and deformity, Skin: Negative for injury, rash, and discoloration, Neuro: Negative for headache, weakness, numbness, tingling, and seizure activity. Psych: Negative for depression, anxiety, suicide ideation, homicidal ideation, and hallucinations, Allergy/Immunology: Negative for hives, rash, and allergies, Endocrine: Negative for neck swelling, polydipsia, polyuria, polyphagia, and marked weight changes, Hematologic/Lymphatic: Negative for swollen nodes, abnormal bleeding, and unusual bruising. 18:48 Back: Positive for pain at rest, pain with movement, of the sacrum, Negative for decreased range of motion. Exam: 18:48 Constitutional: This is a well developed, well nourished patient who is awake, alert, kdr and in no acute distress. Head/Face: Normocephalic, atraumatic. Eyes: Pupils equal round and reactive to light, extra-ocular motions intact. Lids and lashes normal. Conjunctiva and sclera are non-icteric and not injected. Cornea within normal limits. Periorbital areas with no swelling, redness, or edema. Neck: Trachea midline, no thyromegaly or masses palpated, and no cervical lymphadenopathy. Supple, full range of motion without nuchal rigidity, or vertebral point tenderness. No Meningismus. Chest/axilla: Normal chest wall appearance and motion. Nontender with no deformity. No lesions are appreciated. Cardiovascular: Regular rate and rhythm with a normal S1 and S2. No gallops, murmurs, or rubs. Normal PMI, no JVD. No pulse deficits. Respiratory: Lungs have equal breath sounds bilaterally, clear to auscultation and percussion. No rales, rhonchi or wheezes noted. No increased work of breathing, no retractions or nasal flaring. Abdomen/GI: Soft, non-tender, with normal bowel sounds. No distension or tympany. No guarding or rebound. No evidence of tenderness throughout. Skin: Warm, dry with normal turgor. Normal color with no rashes, no lesions, and no evidence of cellulitis. MS/ Extremity: Pulses equal, no cyanosis. Neurovascular intact. Full, normal range of motion. Neuro: Awake and alert, GCS 15, oriented to person, place, time, and situation. Cranial nerves II-XII grossly intact. Motor strength 5/5 in all extremities. Sensory grossly intact. Cerebellar exam normal. Normal gait. Psych: Awake, alert, with orientation to person, place and time. Behavior, mood, and affect are within normal limits. 18:48 Back: pain, that is moderate, of the sacrum, ROM is painless, normal spinal alignment noted, CVA tenderness, is absent, vertebral tenderness, is appreciated at sacrum and coccyx, Straight leg raises: of both lower extremities does not illicit pain. Vital Signs: 12:14 BP 143 / 79; Pulse 75; Resp 18; Temp 98.3; Pulse Ox 95% on R/A; Weight 52.16 kg; ph 14:17 BP 154 / 76; Pulse 74; Resp 16; Pulse Ox 97% on R/A; mh5 15:41 BP 99 / 54; Pulse 70; Resp 16; Temp 98.0(TE); Pulse Ox 98% on R/A; mh5 17:15 BP 114 / 80; Pulse 72; Resp 16; Temp 97.9; Pulse Ox 98% on R/A; ph MDM: 15:38 Patient medically screened. kdr 18:48 Data reviewed: vital signs, nurses notes, radiologic studies. Counseling: I had a kdr detailed discussion with the patient and/or guardian regarding: the historical points, exam findings, and any diagnostic results supporting the discharge/admit diagnosis, radiology results, the need for outpatient follow up. 02/16 14:06 Order name: Lumbar Spine (3 Views) XRAY; Complete Time: 15:31 kdr Administered Medications: No medications were administered Disposition: 02/17/20 15:38 Discharged to Home. Impression: Fracture of coccyx - Clinical, Low back pain. - Condition is Stable. - Discharge Instructions: Musculoskeletal Pain, Back Pain, Adult, [id number]. - Medication Reconciliation Form, Thank You Letter form. - Follow up: Private Physician; When: 2 - 3 days; Reason: If symptoms return, Further diagnostic work-up, Recheck today's complaints, Continuance of care, Re-evaluation by your physician. - Problem is new. - Symptoms are unchanged. Signatures: Dispatcher [employer] Elder Pepe MD MD kdr Chioma Ring RN RN ph Corrections: (The following items were deleted from the chart) 17:16 15:38 02/17/2020 15:38 Discharged to Home. Impression: Fracture of coccyx - Clinical; ph Low back pain. Condition is Stable. Forms are Medication Reconciliation Form, Thank You Letter, Antibiotic Education, Prescription Opioid Use. Follow up: Private Physician; When: 2 - 3 days; Reason: If symptoms return, Further diagnostic work-up, Recheck today's complaints, Continuance of care, Re-evaluation by your physician. Problem is new. Symptoms are unchanged. kdr
[2020-02-17 17:26] VITALS: BP 114/80; TEMP 97.9; O2SAT 98
== END 2020-02-17 17:16 | disposition home or self-care (01) ==
LOC: ER 12:12
DX: S32.2XXA Fracture of coccyx, initial encounter for closed fracture (principal); W19.XXXA Unspecified fall, initial encounter; I10 Essential (primary) hypertension; E78.5 Hyperlipidemia, unspecified; J44.9 Chronic obstructive pulmonary disease, unspecified; F03.90 Unspecified dementia, unspecified severity, without behavioral disturbance, psychotic disturbance, mood disturbance, and anxiety
CPT/HCPCS: 72100; 99285

== ENCOUNTER 2020-08-30 12:34 | Emergency (ER) | payer SELFPAY ==
--- OUTSIDE RECORDS SUMMARY | 2020-08-30 12:45 | XMS REPORT ---
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 Problem Simple chronic J41.0 Active 16981220 bronchitis Problem Urge incontinence N39.41 Active 52514044 of urine Problem Essential I10 Active 50492014 hypertension Problem Alzheimer's G30.1 Active 19397659 disease with late onset Problem Primary insomnia F51.01 Active 7104207 Problem Mixed E78.2 Active 509596147 hyperlipidemia Problem Overactive bladder N32.81 Active 876413859 ALLERGIES No Known Allergies ENCOUNTERS from 1935 to 2020-08-18 Encounter Location Date Provider Diagnosis [facility] [address] Aug, Na Brito Primary insomnia [facility] [place], [place] [address] [place] [address] [place] [id number] chronic bronchi tis J41.0 IMMUNIZATIONS No Information SOCIAL HISTORY Tobacco Use: Social History Observation Description Date Details (start date - stop date) Current Smoker Sex Assigned At : Social History Observation Description Sex Assigned At Unknown Alcohol Screen Question Answer Notes Did you have a drink containing alcohol in the past year? No Points 0 Interpretation Negative Tobacco Use/Smoking Question Answer Notes Are you a current smoker How often do you smoke cigarettes? every day REASON FOR REFERRAL No Information VITAL SIGNS No information MEDICATIONS Medication SIG (Take, Route, Notes Start Date End Date Status Frequency, Duration) Carvedilol 3.125 MG 1 po bid 30 days for Active 30 Aspirin 81 81 MG 1 tablet Orally Once a Active day Symbicort 160-4.5 2 puffs Inhalation Jun, Active MCG/ACT Twice a day for 90 days Gabapentin 100 MG 1 capsule Orally Twice Active a day Donepezil HCl 10 MG 1 tablet at bedtime Active Once a day Orally 30 day(s) for 30 Flonase 50 MCG/ACT 2 spray in each Jul, Active nostril Nasally Once a day for 30 day(s) Clopidogrel Bisulfate 75 1 tablet Orally Once a Active MG day Trazodone HCl 50 MG 1 tablet at bedtime as Jun, Active needed Orally Once a day for 90 days Citalopram Hydrobromide 1 tablet Once a day Active 40 MG Orally 30 days for 30 Simvastatin 20 MG 1 tablet in the Ac tive evening Orally Once a day Myrbetriq 25 MG 1 tablet Orally Once a 30 Jun, 2020Dec Active day for 90 days PROCEDURES No Information RESULTS No Results REASON FOR VISIT Trazodone MEDICAL (GENERAL) HISTORY Type Description Date Surgical History Hysterectomy 1961 Surgical History Mole removal-Melanoma 1982 Goals Section No Information Health Concerns No Information MEDICAL EQUIPMENT No Information MENTAL STATUS No Information FUNCTIONAL STATUS No Information ASSESSMENTS Encounter Date Diagnosis Assessment Notes Treatment Notes Treatm ent Clinical Notes Aug, Primary insomnia (ICD-10 - F51.01) Aug, Simple chronic bronchitis (ICD-10 - J41.0) PLAN OF TREATMENT Medication Medication Name Sig Start Date Stop Date Trazodone HCl 50 MG 1 tablet at bedtime as needed Jun, Orally Once a day for 90 days Citalopram Hydrobromide 40 MG 1 tablet Once a day Orally 30 days for 30 Donepezil HCl 10 MG 1 tablet at bedtime Once a day Orally 30 day(s) for 30 Flonase 50 MCG/ACT 2 spray in each nostril Nasally Jul, Once a day for 30 day(s) Symbicort 160-4.5 MCG/ACT 2 puffs Inhalation Twice a day Jun, for 90 days Insurance Providers Payer Name Payer Payer Insured Name Patient Coverage Covera ge End Address Phone Relationship to Start Date Moustapha e Insured [employer] [address] [address] [phone] Ramone Barnhart [address] [facility] [address] [id number]
--- OUTSIDE RECORDS SUMMARY | 2020-08-30 12:45 | XMS REPORT ---
:1935 Author Organization [facility] Address [address] [facility] [address] [place] [address] Care Team Providers Name Role Phone Brito Unavailable [phone] PROBLEMS Type Condition ICD9-CM [id number] Onset Condition SNOMED Code Notes Code Code Dates Status Problem Cigarette nicotine F17.210 Active 35879988 dependence without complication Problem Moderate episode F33.1 Active 436223470 of recurrent major depressive disorder Problem Simple chronic J41.0 Active 87383182 bronchitis Problem Urge incontinence N39.41 Active 80447814 of urine Problem Essential I10 Active 30983914 hypertension Problem Alzheimer's G30.1 Active 12918973 disease with late onset Problem Primary insomnia F51.01 Active 3498262 Problem Mixed E78.2 Active 600688402 hyperlipidemia Problem Overactive bladder N32.81 Active 177411376 ALLERGIES No Known Allergies ENCOUNTERS from 1935 to 2020-07-17 Encounter Location Date Provider Diagnosis [facility] [address] [facility] [address], [place] [address] IMMUNIZATIONS No Information SOCIAL HISTORY Tobacco Use: [...] No information MEDICATIONS Medication SIG (Take, Route, Start Date End Date Status Frequency, Duration) Citalopram Hydrobromide 40 0.5 tablet Orally Once a Active MG day Myrbetriq 25 MG 1 tablet Orally Once a 30 Jun, 2020 Dec, Ac tive day for 90 days Aspirin 81 81 MG 1 tablet Orally Once a A ctive day Clopidogrel Bisulfate 75 MG 1 tablet Orally Once a Active day Trazodone HCl 50 MG 1 tablet at bedtime as Jun, Active needed Orally Once a day for 90 days Azithromycin 250 MG 2 tablets on the first Jul,Jul, Active day, then 1 tablet daily for 4 days Orally Once a day for 5 day(s) Symbicort 160-4.5 MCG/ACT 2 puffs Inhalation Twice Jun, Dec, Active a day for 90 days PredniSONE 20 MG one tablet with food Jul, Jul, Act manuel Orally once a day for 5 days Gabapentin 100 MG 1 capsule Orally Twice a Active day Carvedilol 3.125 MG 1 po bid 30 days for 30 Active Simvastatin 20 MG 1 tablet in the evening Active Orally Once a day Flonase 50 MCG/ACT 2 spray in each nostril Jul, Active Nasally Once a day for 30 day(s) PROCEDURES No Information RESULTS No Results REASON FOR VISIT RX MEDICAL (GENERAL) HISTORY Type Description Date Surgical History Hysterectomy 1961 Surgical History Mole removal-Melanoma 1982 Goals Section No Information Health Concerns No Information MEDICAL EQUIPMENT No Information MENTAL STATUS No Information FUNCTIONAL STATUS No Information ASSESSMENTS No Information PLAN OF TREATMENT Medication Medication Name Sig Start Date Stop Date Azithromycin 250 MG 2 tablets on the first day, then 1 Jul, Jul, tablet daily for 4 days Orally Once a day for 5 day(s) PredniSONE 20 MG one tablet with food Orally once a day Jul, Jul, for 5 days Flonase 50 MCG/ACT 2 spray in each nostril Nasally Once a Jul day for 30 day(s) Insurance Providers Payer Name Payer Payer Insured Name Patient Coverage Covera ge End Address Phone Relationship to Start Date Moustapha e Insured [employer] [address] [address] [phone] Ramone Barnhart [address] [facility] 80 [place] [phone]
--- OUTSIDE RECORDS SUMMARY | 2020-08-30 12:45 | XMS REPORT ---
:1935 Author Organization [facility] Address [address] [facility] 200 [place] [address] Care Team Providers Name Role Phone Brito Unavailable [phone] PROBLEMS Type Condition ICD9-CM [id number] Onset Condition SNOMED Code Notes Code Code Dates Status Problem Cigarette nicotine F17.210 Active 55478082 dependence without complication Problem Moderate episode F33.1 Active 024737470 of recurrent major depressive disorder Problem Simple chronic J41.0 Active 85635580 bronchitis Problem Urge incontinence N39.41 Active 97678298 of urine Problem Essential I10 Active 44659369 hypertension Problem Alzheimer's G30.1 Active 03605541 disease with late onset Problem Primary insomnia F51.01 Active 1433349 Problem Mixed E78.2 Active 704416931 hyperlipidemia Problem Overactive bladder N32.81 Active 028323852 ALLERGIES No Known Allergies ENCOUNTERS from 1935 to 2020-07-10 Encounter Location Date Provider Diagnosis [facility] [address] [facility] [address], [place] [address] IMMUNIZATIONS No Information SOCIAL HISTORY Tobacco Use: [...] Start Date End Date Status Frequency, Duration) Gabapentin 100 MG 1 capsule Orally Twice a Active day Aspirin 81 81 MG 1 tablet Orally Once a A ctive day Symbicort 160-4.5 MCG/ACT 2 puffs Inhalation Twice Jun, Dec, Active a day for 90 days Trazodone HCl 50 MG 1 tablet at bedtime as 30 Jun, 2020 Active needed Orally Once a day for 90 days Citalopram Hydrobromide 40 0.5 tablet Orally Once a Active MG day Clopidogrel Bisulfate 75 MG 1 tablet Orally Once a Active day Carvedilol 3.125 MG 1 tablet with food Orally Active Twice a day for 90 days Simvastatin 20 MG 1 tablet in the evening Active Orally Once a day Myrbetriq 25 MG 1 tablet Orally Once a 30 Jun, 2020 Dec, Ac tive day for 90 days PROCEDURES No Information RESULTS No Results REASON FOR VISIT caregiver order MEDICAL (GENERAL) HISTORY Type Description Date Surgical [...] Orally Once a day for 90 days Carvedilol 3.125 MG 1 tablet with food Orally Twice a day for 90 days Myrbetriq 25 MG 1 tablet Orally Once a day for 90 Jun, Dec, days Symbicort 160-4.5 MCG/ACT 2 puffs Inhalation Twice a day Jun, Dec, for 90 days Insurance Providers Payer Name Payer Payer Insured Name Patient Coverage Covera End Address Phone Relationship to Start Date Moustapha e Insured [employer] [address] [address] [phone] Ramone Barnhart [address] [facility] 80 [place] [phone]
--- OUTSIDE RECORDS SUMMARY | 2020-08-30 12:45 | XMS REPORT ---
:1935 Author Organization [facility] Address [address] [facility] [address] [place] [address] Care Team Providers Name Role Phone Brito Unavailable [phone] PROBLEMS Type Condition ICD9-CM [id number] Onset Condition SNOMED Code Notes Code Code Dates Status Problem Cigarette nicotine F17.210 Active 32411465 dependence without complication Problem Moderate episode F33.1 Active 696645923 of recurrent major depressive disorder Problem Simple chronic J41.0 Active 83879270 bronchitis Problem Urge incontinence N39.41 Active 58279877 of urine Problem Essential I10 Active 40526401 hypertension Problem Alzheimer's G30.1 Active 11697677 disease with late onset Problem Primary insomnia F51.01 Active 7455064 Problem Mixed E78.2 Active 319096429 hyperlipidemia Problem Overactive bladder N32.81 Active 921540582 ALLERGIES No Known Allergies ENCOUNTERS from 1935 to 2020-07-09 Encounter [facility] [address] [facility] Jun, Na Brito Alz heimer's disease with [facility] [address], late on set G30.1 ; [place] [address] Moderate episo de of recurrent major depressive diso rder F33.1 ; Simple chronic bronchitis J41. 0 ; Overactive blad enoc N32.81 ; Essent ial hypertension I1 0 ; Mixed hyperlipidemia E78.2 ; Wheezing R06.2 ; Primary insomnia F51.01 and Cigarette nicot ine dependence with out complication F1 7.210 IMMUNIZATIONS No Information SOCIAL HISTORY Tobacco Use: [...] REASON FOR REFERRAL No Information VITAL SIGNS Height 64 in Jun, Weight 100.6 lbs Jun, Temperature 97.1 degrees Fahrenheit Jun, BMI 17.27 kg/m2 Jun, Oximetry 94 % Jun, Respiratory Rate 16 /min Jun, Blood pressure systolic 150 mm Hg Jun, Blood pressure diastolic 72 mm Hg Jun, MEDICATIONS Medication SIG (Take, Route, Start Date [...] with food Orally Active Twice a day Simvastatin 20 MG 1 tablet in the evening Active Orally Once a day Myrbetriq 25 MG 1 tablet Orally Once a Jun, Dec, Ac tive day for 90 days PROCEDURES No Information RESULTS No Results REASON FOR VISIT [facility] Bryan, alzheimer's dementia - need caregiver, urinary incont, wheezing, copd - smoker, htn hld,, depression MEDICAL (GENERAL) HISTORY Type Description Date Surgical History Hysterectomy 1961 Surgical History Mole removal-Melanoma 1982 Goals Section No Information Health Concerns No Information MEDICAL EQUIPMENT No Information MENTAL STATUS No Information FUNCTIONAL STATUS No Information ASSESSMENTS Encounter Date Diagnosis Notes Jun, Essential hypertension (ICD-10 - I10) Jun, Overactive bladder (ICD-10 - N32.81) Jun, Wheezing (ICD-10 - R06.2) Jun, Alzheimer's disease with late onset (ICD -10 - G30.1) Jun, Mixed hyperlipidemia (ICD-10 - E78.2) Jun, Simple chronic bronchitis (ICD-10 - J41. 0) Jun, Moderate episode of recurrent major depr essive disorder (ICD-10 - F33.1) Jun, Cigarette nicotine dependence without co mplication (ICD-10 - F17.210) Jun, Primary insomnia (ICD-10 - F51.01) PLAN OF TREATMENT Medication Medication Name Sig Start Date Stop Date Symbicort 160-4.5 MCG/ACT 2 puffs Inhalation Twice a day Jun, Dec, for 90 days Trazodone HCl 50 MG 1 tablet at bedtime as needed Jun, Orally Once a day for 90 days Myrbetriq 25 MG 1 tablet Orally Once a day for 90 Jun, Dec, days Treatment Notes Assessment Notes Clinical Notes Alzheimer's disease with late Will order provider onset services/caregiver which patient requires assistance of to be in home four hours a day 7 days a week to help maintain the patient's independence and continue activities of daily living effectively and safely in comfort of home as pt refuses to go to penitentiary or move in with relatives at this time. _ _Patient is very frail and weak. Patient has multiple comorbidities, chronic diseases that are heavy burden on daughter who lives with her and is not ready to place mom in penitentiary. Moderate episode of recurrent stable continue citalopram major depressive disorder and trazodone. Simple chronic bronchitis continue current inhalers/ nebulizer and continuous oxygen. if you develop sob or cough with increase phlegm or sputum changes from clear to yellow or green or develop fever above 100.4F call PCP or go to ER. Quit smoking and avoid exacerbating factors including second hand smoke or fumes. Overactive bladder wear depends - always wipe hx of total h ysterectomy front to back -- change immediately after BM or urination frequenty since pt not able to sense need to urinate. try to clean well after bowel movement possibly with baby wipes.-- rx trial of myrbetriq. Mixed hyperlipidemia continue simvastatin and plavix. Please maintain low fat diet, decrease fast food and fried foods. Increase fruit and vegetable intake. exercise as tolerated 30minutes per day at least 3 days a week. May take fish oil 1000mg twice daily to help increase good cholesterol (HDL) and take metamucil / eat oatmeal in AM to help lower bad cholesterol. Wheezing improved with nebulizer treatment Primary insomnia Sleep hygiene recommended. do not drink caffeine past noon. do not use mobile devices prior to bedtime. Try melatonin 5mg extended release over the counter to help naturally relax and rest.Counseled with sleep aides, be ready to sleep upon taking medication, do not operate machinery, drive, or plan to do anything other than sleep even if you still feel alert after taking medication as may risk of falls and accidents. Advised it is not recommended to take sleep aides longer than 3 months as we need to avoid dependence on them. Cigarette nicotine dependence recommend smoking cessation / without complication decreasing smoking. Treatment Notes Test Name Order Date Nebulizer Combo 2020-07-09 Next Appt Details 3 Months Reason: Insurance Providers Payer Name Payer Payer Insured Name Patient Coverage Covera ge End Address Phone Relationship to Start Date Moustapha e Insured [employer] [address] [address] [phone] Ramone Barnhart [address] [facility] 80 [place] [phone]
--- OUTSIDE RECORDS SUMMARY | 2020-08-30 12:45 | XMS REPORT ---
:1935 Author Organization [facility] Address [address] [facility] 200 [place] [address] Care Team Providers Name Role Phone Brito Unavailable [phone] PROBLEMS Type Condition ICD9-CM HYO56-NG Onset Condition SNOMED Code Notes Code Code Dates Status Problem Cigarette nicotine F17.210 Active 11719368 dependence without complication Problem Moderate episode F33.1 Active 647500028 of recurrent major depressive disorder Problem Simple chronic J41.0 Active 97571885 bronchitis Problem Urge incontinence N39.41 Active 56595593 of urine Problem Essential I10 Active 87691457 hypertension Problem Alzheimer's G30.1 Active 41339240 disease with late onset Problem Primary insomnia F51.01 Active 5028005 Problem Mixed E78.2 Active 015724346 hyperlipidemia Problem Overactive bladder N32.81 Active 761330472 ALLERGIES No Known Allergies ENCOUNTERS from 1935 to 2020-07-10 Encounter Location Date Provider Diagnosis [facility] [address] [facility] [address], [place] [address] IMMUNIZATIONS No Information SOCIAL HISTORY Tobacco Use: [...] Information RESULTS No Results REASON FOR VISIT refill medication MEDICAL (GENERAL) HISTORY Type Description Date Surgical [...] Relationship to Start Date [facility] [address] [address] [phone] Ramone Barnhart [address] [facility] 80 [place] [phone]
--- OUTSIDE RECORDS SUMMARY | 2020-08-30 12:45 | XMS REPORT | Continuity of Care Document ---
:1935 Author Organization [facility] Address [address] [place] [address] Care Team Providers Name Role Phone Unavailable Unavailable Unavailable Problems This patient has no known problems. Allergies, Adverse Reactions, Alerts This patient has no known allergies or adverse reactions. Medications This patient has no known medications. Procedures This patient has no known procedures. Encounters Start End Encounter Admission Attending Care Care Encounter Source Date/Time Date/Time Type Type Clinicians Facility Department ID 2020-08-17 2020-08-17 Outpatient [facility] [id number] [facility] 2020-07-17 2020-07-17 Outpatient [facility] [id number] [facility] 2020-07-10 2020-07-10 Outpatient [facility] [id number] [facility] 2020-07-09 2020-07-09 Outpatient [facility] [id number] [facility] 2020-07-07 2020-07-07 Outpatient [facility] [id number] [facility] Results This patient has no known results.
--- NOTE | 2020-08-30 16:49 | ER ---
Nurse's Notes [facility] Name: Ellie Barnhart Age: 85 yrs Sex: Female : 1935 Arrival Date: 08/30/2020 Time: 13:03 Bed Waiting Private MD: Diagnosis: Presentation: 08/30 13:18 Chief complaint: Patient's son or daughter states: black tarry stools has been ongoing sv for a couple of months, stopped and then started again. She may be hurting in her stomach and her back. Coronavirus screen: Client denies travel out of the [place] in the last 14 days. At this time, the client does not indicate any symptoms associated with coronavirus-19. Ebola Screen: No symptoms or risks identified at this time. Initial Sepsis Screen: Does the patient meet any 2 criteria? No. Patient's initial sepsis screen is negative. Does the patient have a suspected source of infection? No. Patient's initial sepsis screen is negative. Risk Assessment: Do you want to hurt yourself or someone else? Patient reports no desire to harm self or others. Onset of symptoms is unknown. 13:18 Method Of Arrival: Wheelchair sv 13:18 Acuity: HATTIE 3 sv Historical: - Allergies: 13:18 Codeine; sv - PMHx: 13:18 COPD; ataxic gait; Dementia; Hyperlipidemia; Hypertension; sv Vital Signs: 13:18 BP 109 / 70; Pulse 89; Resp 18; Temp 97.7; Pulse Ox 98% ; sv ED Course: 13:03 Patient arrived in ED. rg4 13:20 Triage completed. sv 13:20 Arm band placed on. sv 14:15 Patient's name was called from ER lobby. No response. sv 14:30 Patient's name was called from ER lobby. No response. sv 14:45 Patient's name was called from ER lobby. No response. sv 16:46 Eusebio Worthington PA is PHCP. cp 16:46 Elder Singh MD is Attending Physician. cp Administered Medications: No medications were administered Outcome: 16:49 Patient left the ED. sv Signatures: Apoorva Goyal RN RN sv Eusebio Worthington PA PA cp Garcia, Rubi rg4 Corrections: (The following items were deleted from the chart) 13:21 13:18 Pulse 89bpm; Resp 18bpm; Pulse Ox 98%; Temp 97.7F; sv sv
[2020-08-30 19:55] VITALS: BP 109/70; TEMP 97.7; O2SAT 98
== END 2020-08-30 16:49 | disposition left against medical advice (07) ==
LOC: ER 12:34
DX: Z53.21 Procedure and treatment not carried out due to patient leaving prior to being seen by health care provider (principal)
CPT/HCPCS: 99281

== ENCOUNTER 2020-09-02 12:20 | Emergency (ER) | payer OTHER ==
[2020-09-02 16:39] LABS: Absolute Lymphocytes (CBC) 1.4 K/uL (0.7-4.9); Basophils % 0.4 % (0-1.3); Hematocrit 42.3 % (36.0-45.0); Lymphocytes % 18.1 % (15.3-44.8); MPV 7.6 fL (7.6-11.3); RBC Red Blood Cell Count 4.26 M/uL (3.86-4.86)
[2020-09-02] MEDS ORDERED: METHYLPREDNISOLONE 125 MG INJ ONE (16:55)
[2020-09-02] MEDS ORDERED: IPRATROPIUM BROM 0.5MG/2.5ML ONE (16:55)
[2020-09-02] MEDS ORDERED: LEVALBUTEROL 1.25 MG/3 ML NEB ONE (16:56)
[2020-09-02 17:02] LABS: ALT/SGPT 16 U/L (12-78); AST/SGOT 17 U/L (15-37); Albumin 3.8 g/dL (3.4-5.0); Alkaline Phosphatase 118 U/L (45-117); BUN Blood Urea Nitrogen 10 mg/dL (7-18); Bicarbonate 29 mmol/L (21-32); Bilirubin Direct < 0.1 mg/dL (0-0.2); Bilirubin Total 0.7 mg/dL (0.2-1.0); Glucose Level 89 mg/dL (74-106); Magnesium 2.5 mg/dL (1.8-2.4); NT PRO-BNP 76 pg/mL (<450); Potassium 4.1 mmol/L (3.5-5.1); Protein, Total 7.4 g/dL (6.4-8.2); Sodium Level 140 mmol/L (136-145); Troponin (Emerg Dept Use Only) < 0.02 ng/mL (0.0-0.045)
--- NOTE | 2020-09-02 17:09 | ER ---
Nurse's Notes [facility] Name: Ellie Barnhart Age: 85 yrs Sex: Female : 1935 Arrival Date: 09/02/2020 Time: 12:22 Bed 13 Private MD: Hailee Brito Diagnosis: Chronic obstructive pulmonary disease, unspecified;Weakness;Dementia in other diseases classified elsewhere Presentation: 09/02 12:55 Acuity: HATTIE 3 aa5 12:55 Coronavirus screen: cough unrelated to allergies. Ebola Screen: Patient negative for aa5 fever greater than or equal to 101.5 degrees Fahrenheit, and additional compatible Ebola Virus Disease symptoms. Initial Sepsis Screen: Does the patient meet any 2 criteria? No. Patient's initial sepsis screen is negative. Does the patient have a suspected source of infection? No. Patient's initial sepsis screen is negative. Risk Assessment: Do you want to hurt yourself or someone else? Patient reports no desire to harm self or others. Onset of symptoms was August 2020. 12:55 Method Of Arrival: Wheelchair aa5 12:55 Chief complaint: Patient states: black diarrhea x 1 month ago but now it's worse. aa5 Denies abd pain. Denies vomiting. Pt's daughter reports decreased appetite. Pt reports baseline cough. Historical: - Allergies: 12:58 Codeine; aa5 - PMHx: 12:58 ataxic gait; COPD; Dementia; Hyperlipidemia; Hypertension; aa5 - Immunization history:: Adult Immunizations up to date. - Family history:: not pertinent. - Social history:: Smoking status: Patient reports the use of cigarette tobacco products, smokes one-half pack cigarettes per day. Screenin:45 Abuse screen: Denies threats or abuse. Denies injuries from another. Nutritional ca1 screening: No deficits noted. Tuberculosis screening: No symptoms or risk factors identified. Fall Risk IV access (20 points). Assessment: 15:45 General: Appears in no apparent distress. comfortable, Behavior is calm, cooperative, ca1 appropriate for age. Pain: Denies pain. Neuro: Level of Consciousness is awake, alert, obeys commands, Oriented to person, place, time, situation. Cardiovascular: Heart tones S1 S2 present Capillary refill < 3 seconds Patient's skin is warm and dry. Rhythm is sinus rhythm. Respiratory: Reports shortness of breath Airway is patent Respiratory effort is even, unlabored, Respiratory pattern is regular, symmetrical, Breath sounds are clear bilaterally. GI: Abdomen is flat, non-distended, Bowel sounds present X 4 quads. Abd is soft and non tender X 4 quads. Reports diarrhea, bloody stool. : No signs and/or symptoms were reported regarding the genitourinary system. EENT: No signs and/or symptoms were reported regarding the EENT system. Derm: Skin is intact, is fragile, is thin, with poor turgor Skin is pink, warm \T\ dry. Musculoskeletal: Circulation, motion, and sensation intact. Capillary refill < 3 seconds. 16:31 Reassessment: Patient appears in no apparent distress at this time. Patient and/or ca1 family updated on plan of care and expected duration. Pain level reassessed. Patient is alert, oriented x 3, equal unlabored respirations, skin warm/dry/pink. 16:55 Reassessment: Faxed Protonix to [facility], attempted to call, no answer. Protonix ca1 unavailable at ER pyxes. 17:30 Reassessment: Patient appears in no apparent distress at this time. Patient and/or ca1 family updated on plan of care and expected duration. Pain level reassessed. Patient is alert, oriented x 3, equal unlabored respirations, skin warm/dry/pink. 18:00 Reassessment: Requested Protonix from 2nd floor. ca1 18:30 Reassessment: Patient appears in no apparent distress at this time. Patient and/or ca1 family updated on plan of care and expected duration. Pain level reassessed. Patient is alert, oriented x 3, equal unlabored respirations, skin warm/dry/pink. Vital Signs: 12:55 BP 147 / 76; Pulse 98; Resp 18 S; Temp 98.5(TE); Pulse Ox 94% on R/A; aa5 16:31 BP 129 / 62; Pulse 90; Resp 20 S; Pulse Ox 96% on R/A; ca1 17:30 BP 119 / 84; Pulse 92; Resp 18 S; Pulse Ox 95% on R/A; ca1 18:30 BP 143 / 96; Pulse 90; Resp 19 S; Pulse Ox 95% on R/A; ca1 ED Course: 12:22 Patient arrived in ED. ag5 12:22 Hailee Brito MD is Private Physician. ag5 12:58 Arm band placed on. aa5 13:00 Triage completed. aa5 15:26 Eusebio Magallon MD is Attending Physician. [facility] 15:45 Alanna Mann RN is Primary Nurse. ca1 15:45 Patient has correct armband on for positive identification. Placed in gown. Bed in low ca1 position. Call light in reach. Side rails up X2. patient monitor on. Pulse ox on. NIBP on. Warm blanket given. 16:28 No provider procedures requiring assistance completed. Initial lab(s) drawn, by [facility], ca1 sent to lab. Inserted saline lock: 20 gauge in right forearm, using aseptic technique. Blood collected. 16:42 XRAY Chest (1 view) In Process Unspecified. EDMS 17:09 Hailee Brito MD is Referral Physician. [facility] 18:56 IV discontinued, intact, bleeding controlled, No redness/swelling at site. Pressure ca1 dressing applied. Administered Medications: 16:46 Drug: SOLU-Medrol 125 mg Route: IVP; Site: right forearm; ca1 16:46 Drug: Xopenex 2.5 mg Route: Inhalation; ca1 16:46 Drug: AtroVENT Aerosol 0.5 mg Route: Inhalation; ca1 18:50 Drug: ProTONIX 40 mg Route: IVP; Site: right forearm; ca1 Outcome: 17:09 Discharge ordered by . [facility] 18:56 Discharged to home via wheelchair, with family. ca1 18:56 Condition: stable 18:56 Discharge instructions given to patient, Instructed on discharge instructions, follow up and referral plans. medication usage, Demonstrated understanding of instructions, follow-up care, medications, Prescriptions given X x 5 18:58 Patient left the ED. ca1 Addendum: 09/06/2020 08:45 Addendum: COVID-19 Result: Negative result given to RN to notify pt. Notified pt of d m5 negative COVID 19 swab results. Pt advised that even with a negative test result they should remain in isolation until symptom free for 3 days without medication. Pt also advised to return to the ED for worsening symptoms. Signatures: Dispatcher [employer] EDWA Marie Vick RN RN dmEusebio Hopson MD MD cha Calderon, Audri, RN RN aa5 Alanna Mann RN RN [facility] Veronica Roque ag5 Corrections: (The following items were deleted from the chart) 09/02 13:02 12:55 Chief complaint: Patient states: diarrhea. Denies abd pain. aa5 aa5 13:02 12:55 Chief complaint: Patient states: black diarrhea x 1 month ago but now it's worse. aa5 Denies abd pain. Denies vomiting. aa5 13:03 12:55 Chief complaint: Patient states: black diarrhea x 1 month ago but now it's worse. aa5 Denies abd pain. Denies vomiting. Pt's daughter reports decreased appetite. aa5 18:58 18:30 BP 143 / 96; Pulse 90bpm; Resp 95bpm; Spontaneous; Pulse Ox 95% RA; ca1 ca1 19:01 16:55 Reassessment: [facility] attempted to call, no answer ca1 ca1
--- NOTE | 2020-09-02 17:10 | EDPHYS ---
Physician Documentation [facility] Name: Ellie Barnhart Age: 85 yrs Sex: Female : 1935 Arrival Date: 09/02/2020 Time: 12:22 Bed 13 Private MD: Hailee Brito ED Physician Eusebio Magallon HPI: 09/02 15:44 This 85 yrs old Female presents to ER via Wheelchair with complaints of nayan Diarrhea, Black/Tarry Stools. 15:44 The patient presents to the emergency department with nausea. Onset: The nayan symptoms/episode began/occurred just prior to arrival. 15:45 Possible causes: unknown. The symptoms are aggravated by nothing. The symptoms are nayan alleviated by nothing. The patient presents to the emergency department with rectal bleeding, black stools. Abdominal pain: none is appreciated. Modifying factors: The symptoms are alleviated by remaining still, the symptoms are aggravated by nothing. Severity of symptoms: At their worst the symptoms were mild, in the emergency department the symptoms are unchanged. Severity of symptoms: At their worst the symptoms were very mild in the emergency department the symptoms are unchanged. Historical: - Allergies: 12:58 Codeine; aa5 - PMHx: 12:58 ataxic gait; COPD; Dementia; Hyperlipidemia; Hypertension; aa5 - Immunization history:: Adult Immunizations up to date. - Family history:: not pertinent. - Social history:: Smoking status: Patient reports the use of cigarette tobacco products, smokes one-half pack cigarettes per day. ROS: 15:45 Constitutional: Negative for fever, chills, and weight loss, Eyes: Negative for injury, nayan pain, redness, and discharge, ENT: Negative for injury, pain, and discharge, Neck: Negative for injury, pain, and swelling, Cardiovascular: Negative for chest pain, palpitations, and edema, Abdomen/GI: Negative for abdominal pain, nausea, vomiting, diarrhea, and constipation, Back: Negative for injury and pain, : Negative for injury, bleeding, discharge, and swelling, MS/Extremity: Negative for injury and deformity, Skin: Negative for injury, rash, and discoloration, Neuro: Negative for headache, weakness, numbness, tingling, and seizure, Psych: Negative for depression, anxiety, suicide ideation, homicidal ideation, and hallucinations, Allergy/Immunology: Negative for hives, rash, and allergies, Endocrine: Negative for neck swelling, polydipsia, polyuria, polyphagia, and marked weight changes, Hematologic/Lymphatic: Negative for swollen nodes, abnormal bleeding, and unusual bruising. 15:45 Respiratory: Positive for cough, shortness of breath, wheezing, inspiratory, expiratory. Exam: 15:45 Constitutional: This is a well developed, well nourished patient who is awake, alert, nayan and in no acute distress. Head/Face: Normocephalic, atraumatic. Eyes: Pupils equal round and reactive to light, extra-ocular motions intact. Lids and lashes normal. Conjunctiva and sclera are non-icteric and not injected. Cornea within normal limits. Periorbital areas with no swelling, redness, or edema. ENT: Nares patent. No nasal discharge, no septal abnormalities noted. Tympanic membranes are normal and external auditory canals are clear. Oropharynx with no redness, swelling, or masses, exudates, or evidence of obstruction, uvula midline. Mucous membranes moist. Neck: Trachea midline, no thyromegaly or masses palpated, and no cervical lymphadenopathy. Supple, full range of motion without nuchal rigidity, or vertebral point tenderness. No Meningismus. Chest/axilla: Normal chest wall appearance and motion. Nontender with no deformity. No lesions are appreciated. Cardiovascular: Regular rate and rhythm with a normal S1 and S2. No gallops, murmurs, or rubs. Normal PMI, no JVD. No pulse deficits. Abdomen/GI: Soft, non-tender, with normal bowel sounds. No distension or tympany. No guarding or rebound. No evidence of tenderness throughout. Back: No spinal tenderness. No costovertebral tenderness. Full range of motion. Female : Normal external genitalia. Skin: Warm, dry with normal turgor. Normal color with no rashes, no lesions, and no evidence of cellulitis. MS/ Extremity: Pulses equal, no cyanosis. Neurovascular intact. Full, normal range of motion. Neuro: Awake and alert, GCS 15, oriented to person, place, time, and situation. Cranial nerves II-XII grossly intact. Motor strength 5/5 in all extremities. Sensory grossly intact. Cerebellar exam normal. Normal gait. Psych: Awake, alert, with orientation to person, place and time. Behavior, mood, and affect are within normal limits. 15:45 Respiratory: the patient does not display signs of respiratory distress, Respirations: normal, no acute changes, Breath sounds: decreased breath sounds, that are mild, rhonchi, that are mild, + upper airway congestion. wheezing: inspiratory expiratory Respiratory rate: 18 16:29 ECG was reviewed by the Attending Physician. nayan Vital Signs: 12:55 BP 147 / 76; Pulse 98; Resp 18 S; Temp 98.5(TE); Pulse Ox 94% on R/A; aa5 16:31 BP 129 / 62; Pulse 90; Resp 20 S; Pulse Ox 96% on R/A; ca1 17:30 BP 119 / 84; Pulse 92; Resp 18 S; Pulse Ox 95% on R/A; ca1 18:30 BP 143 / 96; Pulse 90; Resp 19 S; Pulse Ox 95% on R/A; ca1 MDM: 15:26 Patient medically screened. nayan 15:48 Differential diagnosis: Nonspecific abd pain, gastritis, gastroenteritis. Differential nayan Diagnosis: Influenza Upper Respiratory Infection Sinusitis Pharyngitis Pneumonia. Data reviewed: vital signs, nurses notes, lab test result(s), EKG, radiologic studies. Data interpreted: traffic monitor specialist: rate is 98 beats/min, rhythm is regular, Pulse oximetry: on room air is 94 %. Test interpretation: by ED physician or midlevel provider: ECG, plain radiologic studies. Counseling: I had a detailed discussion with the patient and/or guardian regarding: the historical points, exam findings, and any diagnostic results supporting the discharge/admit diagnosis, lab results, radiology results. 09/02 15:44 Order name: Basic Metabolic Panel [facility] 09/02 15:44 Order name: CBC with Diff [facility] 09/02 15:44 Order name: LFT's [facility] 09/02 15:44 Order name: Magnesium; Complete Time: 17:04 [facility] 09/02 15:44 Order name: NT PRO-BNP; Complete Time: 17:04 [facility] 09/02 15:44 Order name: PT-INR; Complete Time: 17:04 [facility] 09/02 15:44 Order name: Troponin (emerg Dept Use Only); Complete Time: 17:04 [facility] 09/02 15:44 Order name: XRAY Chest (1 view); Complete Time: 17:46 [facility] 09/02 15:44 Order name: COVID-19 [facility] 09/02 15:45 Order name: Basic Metabolic Panel; Complete Time: 17:04 [facility] 09/02 15:45 Order name: CBC with Automated Diff; Complete Time: 17: [facility] 09/02 15:45 Order name: Liver (Hepatic) Function; Complete Time: 17: [facility] 09/02 15:44 Order name: EKG; Complete Time: 15:45 [facility] 09/02 15:44 Order name: Cardiac monitoring; Complete Time: 16: [facility] 09/02 15:44 Order name: EKG - Nurse/Tech; Complete Time: 16: [facility] 09/02 15:44 Order name: IV Saline Lock; Complete Time: 16: [facility] 09/02 15:44 Order name: Labs collected and sent; Complete Time: 16: [facility] 09/02 15:44 Order name: O2 Per Protocol; Complete Time: 16: [facility] 09/02 15:44 Order name: O2 Sat Monitoring; Complete Time: 16: [facility] EC:29 Rate is 86 beats/min. Rhythm is regular. QRS [place] is Normal. TN interval is normal. QRS nayan interval is normal. QT interval is normal. No Q waves. T waves are Normal. No ST changes noted. Clinical impression: NSR w/ Non-specific ST/T Changes and No evidence of ischemia. Interpreted by me. Reviewed by me. Administered Medications: 16:46 Drug: SOLU-Medrol 125 mg Route: IVP; Site: right forearm; ca1 16:46 Drug: Xopenex 2.5 mg Route: Inhalation; ca1 16:46 Drug: AtroVENT Aerosol 0.5 mg Route: Inhalation; ca1 18:50 Drug: ProTONIX 40 mg Route: IVP; Site: right forearm; ca1 Disposition: 09/02/20 17:09 Discharged to Home. Impression: Chronic obstructive pulmonary disease, unspecified, Weakness, Dementia in other diseases classified elsewhere. - Condition is Stable. - Discharge Instructions: Chronic Bronchitis, Dementia, Weakness, Chronic Obstructive Pulmonary Disease Exacerbation, Fatigue, Weakness, [id number], Cough, Adult, Dementia, [id number]. - Prescriptions for Augmentin 500- 125 mg Oral Tablet - take 1 tablet by ORAL route every 8 hours for 7 days; 21 tablet. Protonix 40 mg Oral Tablet - take 1 tablet by ORAL route once daily; 30 tablet. Albuterol Sulfate 2.5 mg /3 mL (0.083 %) Inhalation Solution for Nebulization - inhale 1 unit by NEBULIZATION route every 8 hours As needed; 1 box. Prednisone 20 mg Oral Tablet - take 2 tablet by ORAL route once daily for 5 days; 10 tablet. Albuterol Sulfate 90 mcg/actuation - inhale 1-2 puff by INHALATION route every 4-6 hours; 1 Inhaler. - Medication Reconciliation Form, Thank You Letter, Antibiotic Education, Prescription Opioid Use form. - Follow up: Hailee Brito; When: 2 - 3 days; Reason: Recheck today's complaints, Continuance of care, Re-evaluation by your physician. - Problem is new. - Symptoms have improved. Signatures: Dispatcher [employer] EDMS Eusebio Magallon MD MD cha Calderon, Audri RN RN aa5 Alanna Mann RN RN ca1 Corrections: (The following items were deleted from the chart) 18:58 17:09 09/02/2020 17:09 Discharged to Home. Impression: Chronic obstructive pulmonary ca1 disease, unspecified; Weakness; Dementia in other diseases classified elsewhere. Condition is Stable. Discharge Instructions: Chronic Bronchitis, Dementia, Weakness, Chronic Obstructive Pulmonary Disease Exacerbation, Fatigue, Weakness, [id number], Cough, Adult, Dementia, [id number]. Prescriptions for Augmentin 500-125 mg Oral Tablet - take 1 tablet by ORAL route every 8 hours for 7 days; 21 tablet, Protonix 40 mg Oral Tablet - take 1 tablet by ORAL route once daily; 30 tablet, Albuterol Sulfate 2.5 mg /3 mL (0.083 %) Inhalation Solution for Nebulization - inhale 1 unit by NEBULIZATION route every 8 hours As needed; 1 box, Prednisone 20 mg Oral Tablet - take 2 tablet by ORAL route once daily for 5 days; 10 tablet, Albuterol Sulfate 90 mcg/actuation - inhale 1-2 puff by INHALATION route every 4-6 hours; 1 Inhaler. and Forms are Medication Reconciliation Form, Thank You Letter, Antibiotic Education, Prescription Opioid Use. Follow up: Hailee Brito; When: 2 - 3 days; Reason: Recheck today's complaints, Continuance of care, Re-evaluation by your physician. Problem is new. Symptoms have improved. nayan
--- NOTE | 2020-09-02 17:30 | RAD REPORT ---
EXAM DESCRIPTION: RAD - Chest Single View - 09/02/2020 4:42 pm CLINICAL HISTORY: Cough;COPD Chest pain. COMPARISON: Chest Single View dated 01/28/2020; Chest Single View dated 09/10/2018; Chest Single View d ated 12/18/2017; Chest Pa And Lat (2 Views) dated 02/24/2017 FINDINGS: Portable technique limits examination quality. Small calcified granuloma seen in the right lung base. The lungs are otherwise clear. The heart is no rmal in size. No displaced fractures. IMPRESSION: No acute intrathoracic process suspected.
[2020-09-02] MEDS ORDERED: PANTOPRAZOLE 40 MG INJ ONE (18:37)
[2020-09-02] MEDS ORDERED: WATER FOR INJ,STERILE 10 ML ONE (18:53)
[2020-09-02 19:03] VITALS: TEMP 98.5
[2020-09-02 19:06] VITALS: O2SAT 95
[2020-09-02 19:07] VITALS: BP 143/96
== END 2020-09-02 18:58 | disposition home or self-care (01) ==
LOC: ER 12:20
DX: J44.9 Chronic obstructive pulmonary disease, unspecified (principal); R53.1 Weakness; F03.90 Unspecified dementia, unspecified severity, without behavioral disturbance, psychotic disturbance, mood disturbance, and anxiety; Z88.6 Allergy status to analgesic agent; F17.210 Nicotine dependence, cigarettes, uncomplicated; Z20.828 Contact with and (suspected) exposure to other viral communicable diseases
CPT/HCPCS: 93005; 85025; 80048; 36415; 83735; 85610; 80076; 84484; 83880; 71045; 96375; 96374; 99285; U0002; C9113; J2930

== ENCOUNTER 2021-01-01 19:12 | Emergency (ER) | payer OTHER ==
--- OUTSIDE RECORDS SUMMARY | 2021-01-01 19:14 | XMS REPORT | Continuity of Care Document ---
:1935 Author Organization [facility] t Address [address] [place] [address] Care Team Providers Name Role Phone Unavailable Unavailable Unavailable Problems Condition Condition Condition Status Onset Resolution Last Treating Co mments Source Name Details Category Date Date Treatment Clinician Date Dementia Dementia Problem Active [facility] 4[facility]08 Family 00:00: Practic 00 e Major Major Problem Active [facility] depressive Depressive 4-08 Fa dylon disorder Disorder 00:00: Practi c 00 e Hypertensi Hypertensi Problem Active [facility] Family disorder Disorder 00:00: Practi c 00 e Chronic Chronic Problem Active [facility] obstructiv Obstructiv 4-08 Fa dylon e lung e Lung 00:00: Practic disease Disease 00 e At risk At Risk Problem Active [facility] for falls for Falls 08 Fami ly 00:00: Practic 00 e Allergies, Adverse Reactions, Alerts This patient has no known allergies or adverse reactions. Social History Smoking Status Start Date Stop Date Source Former Smoker [facility] Family P ractice Medications Ordered Filled Start Stop Current Ordering Indication Dosage Frequency Signature Comments Components Source Medication Medication Date Date Medication? Clinician (SIG) Name Name albuterol albuterol No albuterol [place] sulfate 2.5 sulfate 2.5 sulfate Family mg/3 mL mg/3 mL 2.5 mg/3 Pract ic (0.083 %) (0.083 %) mL (0.083 e solution solution %) for for solution nebulizatio nebulizatio for n USE 1 n USE 1 nebulizati VAIL VIA VAIL VIA on USE 1 NEBULIZER NEBULIZER VAIL VIA MACHINE MACHINE NEBULIZER EVERY 4 6 EVERY 4 6 MACHINE HOURS HOURS EVERY 4 6 NEEDED FOR NEEDED FOR HOURS INCREASED INCREASED NEEDED FOR SHORTNESS SHORTNESS INCREASED OF BREATH OF BREATH SHORTNESS OF BREATH albuterol albuterol No albuterol [facility] sulfate HFA sulfate HFA sulfate Family 90 90 HFA 90 Practic mcg/actuati mcg/actuati mcg/actuat e on aerosol on aerosol ion inhaler USE inhaler USE aerosol 1 2 PUFFS 1 2 PUFFS inhaler EVERY 4 6 EVERY 4 6 USE 1 2 HOURS HOURS PUFFS NEEDED NEEDED EVERY 4 6 HOURS NEEDED bupropion bupropion No bupropion [facility] HCl 100 mg HCl 100 mg HCl 100 mg Family tablet TAKE tablet TAKE tablet Practic 1 TABLET BY 1 TABLET BY TAKE 1 e MOUTH ONCE MOUTH ONCE TABLET BY A DAY A DAY MOUTH ONCE A DAY carvedilol carvedilol No carvedilol [facility] 3.125 mg 3.125 mg 3.125 mg Fam marilia tablet TAKE tablet TAKE tablet Practic 1 TABLET BY 1 TABLET BY TAKE 1 e MOUTH WITH MOUTH WITH TABLET BY FOOD TWICE FOOD TWICE MOUTH A DAY A DAY WITH FOOD TWICE A DAY citalopram citalopram No citalopram [facility] 40 mg 40 mg 40 mg Family tablet TAKE tablet TAKE tablet Practic 1 TABLET BY 1 TABLET BY TAKE 1 e MOUTH EVERY MOUTH EVERY TABLET BY DAY DAY MOUTH EVERY DAY clopidogrel clopidogrel No clopidogre [facility] 75 mg 75 mg l 75 mg Family tablet TAKE tablet TAKE tablet Practic 1 TABLET BY 1 TABLET BY TAKE 1 e MOUTH ONCE MOUTH ONCE TABLET BY A DAY A DAY MOUTH ONCE A DAY donepezil donepezil No donepezil [facility] 10 mg 10 mg 10 mg Family tablet TAKE tablet TAKE tablet Practic 1 TABLET BY 1 TABLET BY TAKE 1 e MOUTH AT MOUTH AT TABLET BY BEDTIME BEDTIME MOUTH AT BEDTIME esomeprazol esomeprazol No esomeprazo [facility] e magnesium e magnesium le F amily 40 mg 40 mg magnesium Practic capsule,del capsule,del 40 mg e ayed ayed capsule,de release release layed release metoprolol metoprolol No metoprolol [facility] tartrate 25 tartrate 25 tartrate Family mg tablet mg tablet 25 mg Prac tic TAKE 1 TAKE 1 tablet e (25MG) (25MG) TAKE 1 TABLET BY TABLET BY (25MG) MOUTH MOUTH TABLET BY TWICE A DAY TWICE A DAY MOUTH AT 6AM AND AT 6AM AND TWICE A 6PM 6PM DAY AT 6AM AND 6PM Symbicort Symbicort No Symbicort [facility] 160 mcg-4.5 160 mcg-4.5 160 F amily mcg/actuati mcg/actuati mcg-4.5 Practic on HFA on HFA mcg/actuat e aerosol aerosol ion HFA inhaler USE inhaler USE aerosol 2 PUFFS 2 PUFFS inhaler TWICE A DAY TWICE A DAY USE 2 INHALATION INHALATION PUFFS TWICE A DAY INHALATION trazodone trazodone No trazodone [facility] 50 mg 50 mg 50 mg Family tablet TAKE tablet TAKE tablet Practic 1 TABLET BY 1 TABLET BY TAKE 1 e MOUTH EVERY MOUTH EVERY TABLET BY DAY AT DAY AT MOUTH BEDTIME BEDTIME EVERY DAY NEEDED FOR NEEDED FOR AT BEDTIME INSOMNIA INSOMNIA NEEDED FOR INSOMNIA Trelegy Trelegy No 1puff(s Q1D Trelegy Claudette satish Ellipta 200 Ellipta 200 ) Ellipta Family mcg-62.5 mcg-62.5 200 Practic mcg-25 mcg mcg-25 mcg mcg-62.5 e powder for powder for mcg-25 mcg inhalation inhalation powder for Inhale 1 Inhale 1 inhalation puff every puff every Inhale 1 day by day by puff every inhalation inhalation day by route. route. inhalation route. Procedures This patient has no known procedures. 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 2020-10-17 2020-10-17 [facility]patient [facility] [id number] [facility] 00[facility]00 [facility] 2020-09-20 2020-09-20 Outpatient [facility] [id number] [facility] 2020-09-05 2020-09-05 Outpatient [facility] [id number] [facility] 2020-08-17 2020-08-17 Outpatient [facility] [id number] [facility] 2020-07-17 2020-07-17 Outpatient [facility] [id number] [facility] 2020-07-10 2020-07-10 Outpatient [facility] [id number] [facility] 2020-07-09 2020-07-09 Out[facility] [id number] [facility] 2020-07-07 2020-07-07 Out[facility] [id number] [facility] Results This patient has no known results.
[2021-01-01] MEDS ORDERED: NA CHLORIDE 0.9% 500 ML ONE ×2 (19:42→21:38)
[2021-01-01 19:46] LABS: Urine Blood Negative (Negative); Urine Glucose Negative (Negative); Urine Protein Negative (Negative); Urine Specific Gravity 1.015 (1.005-1.030)
[2021-01-01 20:01] LABS: Urine Bacteria NONE SEEN /HPF (<20); Urine RBC <5 /HPF (NONE SEEN)
[2021-01-01 20:03] LABS: Basophils % 0.4 % (0-1.3); Hematocrit 40.1 % (36.0-45.0); Lymphocytes % 32.9 % (15.3-44.8); MPV 8.4 fL (7.6-11.3); RBC Red Blood Cell Count 4.05 M/uL (3.86-4.86)
[2021-01-01 20:06] LABS: ALT/SGPT 26 U/L (12-78); AST/SGOT 21 U/L (15-37); Albumin 3.5 g/dL (3.4-5.0); Alkaline Phosphatase 131 U/L (45-117); BUN Blood Urea Nitrogen 10 mg/dL (7-18); Bicarbonate 29 mmol/L (21-32); Bilirubin Direct < 0.1 mg/dL (0-0.2); Bilirubin Total 0.3 mg/dL (0.2-1.0); Glucose Level 79 mg/dL (74-106); Lipase 206 U/L (73-393); Potassium 4.1 mmol/L (3.5-5.1); Protein, Total 6.6 g/dL (6.4-8.2); Sodium Level 141 mmol/L (136-145)
[2021-01-01] MEDS ORDERED: LEVALBUTEROL 1.25 MG/3 ML NEB ONE (20:36)
--- NOTE | 2021-01-01 21:06 | RAD REPORT ---
EXAM DESCRIPTION: Magy Single View01/01/2021 7:53 pm CLINICAL HISTORY: Cough COMPARISON: August 2020 FINDINGS: Calcified granuloma right lung base. Lungs are hyperaerated. Nodular opacity left lung base probably calcified cartilage anterior rib Heart is normal size
--- NOTE | 2021-01-01 21:06 | RAD REPORT ---
EXAM DESCRIPTION: CT - Abdomen Pelvis W Contrast - 01/01/2021 8:53 pm CLINICAL HISTORY: Abdominal pain COMPARISON: 2019 TECHNIQUE: Computed axial tomography of the abdomen pelvis was obtained. 100 cc Isovue-300 was admin istered intravenously. Oral contrast was not requested which limits evaluation of bowel. All CT scans are performed using dose optimization technique as appropriate and may include automated exposure control or mA/KV adjustment according to patient size. FINDINGS: Calcified granuloma right lung. Liver, pancreas, and adrenals unremarkable. Small left renal cysts. The right kidney is very small with cortical thinning. Several cysts are present. Cholecystectomy Diverticula stem from the colon without evidence diverticulitis. . Mild anterior subluxation L3 on L4 and L4 on L5. 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
--- NOTE | 2021-01-01 21:21 | ER ---
Nurse's Notes [facility] Name: Ellie Barnhart Age: 85 yrs Sex: Female : 1935 Arrival Date: 01/01/2021 Time: 19:13 Bed 17 Private MD: Diagnosis: Malaise and fatigue;Dehydration Presentation: 01/01 19:10 Chief complaint: EMS states: general weakness she thinks she is having cancer. history rr5 of ovarian Cancer and Alzheimer's. 19:10 Coronavirus screen: Client denies travel out of the [place] in the last 14 days. At this rr5 time, the client does not indicate any symptoms associated with coronavirus-19. Ebola Screen: Patient negative for fever greater than or equal to 101.5 degrees Fahrenheit, and additional compatible Ebola Virus Disease symptoms Patient denies exposure to infectious person. Patient denies travel to an Ebola-affected area in the 21 days before illness onset. 19:10 Method Of Arrival: EMS: [facility] rr5 19:10 Initial Sepsis Screen: Does the patient meet any 2 criteria? No. Patient's initial rr5 sepsis screen is negative. Does the patient have a suspected source of infection? No. Patient's initial sepsis screen is negative. Risk Assessment: Do you want to hurt yourself or someone else? Patient reports no desire to harm self or others. Onset of symptoms was January 01, 2021. 19:10 Acuity: HATTIE 3 rr5 Historical: - Allergies: 19:10 Codeine; rr5 - PMHx: 19:10 ataxic gait; COPD; Dementia; Hyperlipidemia; Hypertension; Alzheimers; ovarian cancer; rr5 Depression; - Immunization history:: Adult Immunizations up to date. - Social history:: Smoking status: unknown. - Family history:: not pertinent. - Hospitalizations: : No recent hospitalization is reported. Screenin:15 Abuse screen: Denies threats or abuse. Denies injuries from another. Nutritional rr5 screening: No deficits noted. Tuberculosis screening: No symptoms or risk factors identified. Fall Risk IV access (20 points). Total Jang Fall Scale indicates No Risk (0-24 pts). Assessment: 19:10 General: Appears in no apparent distress. comfortable, Behavior is calm, cooperative. rr5 19:10 Pain: Denies pain. Neuro: Level of Consciousness is awake, alert, obeys commands, rr5 Oriented to person, place. Cardiovascular: Capillary refill < 3 seconds Patient's skin is warm and dry. Respiratory: Airway is patent Respiratory effort is even, unlabored, Respiratory pattern is regular, symmetrical. GI: No signs and/or symptoms were reported involving the gastrointestinal system. : No signs and/or symptoms were reported regarding the genitourinary system. EENT: No signs and/or symptoms were reported regarding the EENT system. Derm: Skin temperature is warm. Musculoskeletal: Capillary refill < 3 seconds. 20:00 Reassessment: Patient appears in no apparent distress at this time. Patient and/or rr5 family updated on plan of care and expected duration. Pain level reassessed. 21:04 Reassessment: Patient appears in no apparent distress at this time. back from [facility]. rr5 daughter shagufta called [phone]. 21:55 Reassessment: trying to call the daughter [phone] answering the phone. rr5 22:10 Reassessment: spoke to maria antonia [phone] grand daughter she also tried calling her rr5 mother. 22:35 Reassessment: Patient appears in no apparent distress at this time. charge nurse spoke rr5 to shagufta and agreed patient will go via taxi and she will wait outside the house. 22:55 Reassessment: Patient appears in no apparent distress at this time. awaiting for taxi rr5 ride going home. 23:40 Reassessment: Patient appears in no apparent distress at this time. discharge rr5 instruction given and explained without complaints made. Vital Signs: 19:10 BP 150 / 79; Pulse 87; Resp 19; Temp 98.3; Pulse Ox 95% ; Weight 60 kg; Pain 0/10; rr5 20:16 BP 147 / 72; Pulse 85; Resp 17; Pulse Ox 98% ; rr5 21:56 BP 133 / 70; Pulse 80; Resp 16; Pulse Ox 98% ; rr5 22:55 BP 125 / 85; Pulse 75; Resp 17; Pulse Ox 95% ; rr5 23:40 BP 121 / 70; Pulse 70; Resp 15; Pulse Ox 95% ; rr5 ED Course: 19:13 Patient arrived in ED. rn 19:14 Joseph Ambrose MD is Attending Physician. rn 19:17 Niko Raymond, RN is Primary Nurse. rr5 19:20 Patient has correct armband on for positive identification. Placed in gown. Bed in low rr5 position. Call light in reach. Side rails up X2. pulmonary care nurse on. Pulse ox on. NIBP on. 19:21 Triage completed. rr5 19:21 Arm band placed on right wrist. rr5 19:30 Inserted saline lock: 20 gauge in right forearm, using aseptic technique. Blood rr5 collected. 19:35 Urine collected: clean catch specimen, clear. rr5 19:54 XRAY Chest (1 view) In Process Unspecified. EDMS 20:53 CT Abd/Pelvis - IV Contrast Only In Process Unspecified. EDMS 23:49 No provider procedures requiring assistance completed. IV discontinued, intact, rr5 bleeding controlled, No redness/swelling at site. Pressure dressing applied. Administered Medications: 19:30 Drug: NS 0.9% 500 ml Route: IV; Rate: bolus; Site: right forearm; rr5 20:30 Follow up: Response: No adverse reaction; IV Status: Completed infusion; IV Intake: rr5 500ml 20:20 Drug: Xopenex (levalbuterol) 1.25 mg Route: Inhalation; rr5 21:20 Follow up: Response: No adverse reaction rr5 21:31 Drug: NS 0.9% 500 ml Route: IV; Rate: bolus; Site: right forearm; rr5 22:30 Follow up: Response: No adverse reaction; IV Status: Completed infusion; IV Intake: rr5 500ml Intake: 20:30 IV: 500ml; Total: 500ml. rr5 22:30 IV: 500ml; Total: 1000ml. rr5 Outcome: 21:21 Discharge ordered by . rn 23:40 Discharged to home via wheelchair. rr5 23:40 Condition: stable 23:40 Discharge instructions given to patient, family, Instructed on discharge instructions, rr5 follow up and referral plans. Demonstrated understanding of instructions, follow-up care. 23:44 Patient left the ED. iw Signatures: Dispatcher [employer] Camille Fulton, RN ALBARO iw Joseph Ambrose MD MD rn Roque, Raymond, RN RN rr5
--- NOTE | 2021-01-01 21:21 | EDPHYS ---
Physician Documentation [facility] Name: Ellie Barnhart Age: 85 yrs Sex: Female : 1935 Arrival Date: 01/01/2021 Time: 19:13 Bed 17 Private MD: ED Physician Joseph Ambrose HPI: 01/01 19:20 This 85 yrs old Female presents to ER via Unassigned with complaints of rn generalized weakness. 19:20 Pt reports generalized weakness and fatigue, states began today, has hx of ovarian rn cancer and melanoma, told her daughter she thinks she has cancer, so daughter called 911. Pt denies fever/abd pain/vomiting/diarrhea/urinary symptoms. UNknown if weight loss. No fever. States didn't eat anything today, had a small amount of water, but that is usual for her. . Onset: The symptoms/episode began/occurred today. Severity of symptoms: At their worst the symptoms were mild in the emergency department the symptoms are unchanged. The patient has experienced similar episodes in the past. The patient has not recently seen a physician. Historical: - Allergies: 19:10 Codeine; rr5 - PMHx: 19:10 ataxic gait; COPD; Dementia; Hyperlipidemia; Hypertension; Alzheimers; ovarian cancer; rr5 Depression; - Immunization history:: Adult Immunizations up to date. - Social history:: Smoking status: unknown. - Family history:: not pertinent. - Hospitalizations: : No recent hospitalization is reported. ROS: 19:20 Constitutional: Negative for fever, chills, and weight loss, Eyes: Negative for injury, rn pain, redness, and discharge, Neck: Negative for injury, pain, and swelling, Cardiovascular: Negative for chest pain, palpitations, and edema, Respiratory: + cough, neg for sob Abdomen/GI: Negative for abdominal pain, nausea, vomiting, diarrhea, and constipation, Back: Negative for injury and pain, : Negative for injury, bleeding, discharge, and swelling, MS/Extremity: Negative for injury and deformity, Skin: Negative for injury, rash, and discoloration, Neuro: Negative for headache, numbness, tingling, and seizure. 19:20 All other systems are negative. Exam: 19:20 Constitutional: Thin female, no acute distress Head/Face: Normocephalic, atraumatic. rn Eyes: Pupils equal round and reactive to light, extra-ocular motions intact. Lids and lashes normal. Conjunctiva and sclera are non-icteric and not injected. Cornea within normal limits. Periorbital areas with no swelling, redness, or edema. ENT: dry MM Neck: Trachea midline, no masses palpated, and no cervical lymphadenopathy. Supple, full range of motion without nuchal rigidity, or vertebral point tenderness. No Meningismus. Cardiovascular: Regular rate and rhythm. No pulse deficits. Respiratory: Faint wheezing bilaterally, no retractions, speaking full sentences. Abdomen/GI: soft, non-tender Skin: Warm dry, + skin tenting, no signs of malignant skin lesions MS/ Extremity: Pulses equal, no cyanosis. Neurovascular intact. Full, normal range of motion. Equal circumference. Neuro: Awake and alert, GCS 15, oriented to person, place, and situation. Cranial nerves II-XII grossly intact. Motor strength 4/5 in all extremities. Sensory grossly intact. Vital Signs: 19:10 BP 150 / 79; Pulse 87; Resp 19; Temp 98.3; Pulse Ox 95% ; Weight 60 kg; Pain 0/10; rr5 20:16 BP 147 / 72; Pulse 85; Resp 17; Pulse Ox 98% ; rr5 21:56 BP 133 / 70; Pulse 80; Resp 16; Pulse Ox 98% ; rr5 22:55 BP 125 / 85; Pulse 75; Resp 17; Pulse Ox 95% ; rr5 23:40 BP 121 / 70; Pulse 70; Resp 15; Pulse Ox 95% ; rr5 MDM: 19:14 Patient medically screened. rn 21:17 Differential Diagnosis COVID, dehydration, UTI, malaise. Data reviewed: vital signs, rn nurses notes, lab test result(s), radiologic studies, CT scan, plain films, and as a result, I will discharge patient. Counseling: I had a detailed discussion with the patient and/or guardian regarding: the historical points, exam findings, and any diagnostic results supporting the discharge/admit diagnosis, lab results, radiology results, the need for outpatient follow up, to return to the emergency department if symptoms worsen or persist or if there are any questions or concerns that arise at home. Response to treatment: the patient's symptoms have mildly improved after treatment, and as a result, I will discharge patient. Special discussion: I discussed with the patient/guardian in detail that at this point there is no indication for admission to the hospital. It is understood, however, that if the symptoms persist or worsen the patient needs to return immediately for re-evaluation. ED course: NO acute abnormality in w/u, neg CXR, neg CT abomen, normal CBC and basic, neg UA, normal procal.. 01/01 19:16 Order name: Basic Metabolic Panel 01/01 19:16 Order name: CBC with Diff 01/01 19:16 Order name: Hepatic Function 01/01 19:16 Order name: Lipase; Complete Time: 21:16 01/01 19:16 Order name: Urine Microscopic Only; Complete Time: 21:16 01/01 19:16 Order name: XRAY Chest (1 view); Complete Time: 21:16 01/01 19:16 Order name: CT Abd/Pelvis - IV Contrast Only; Complete Time: 21:16 01/01 19:16 Order name: Procalcitonin; Complete Time: 21:16 01/01 19:16 Order name: Basic Metabolic Panel; Complete Time: 21:16 [facility] 01/01 19:16 Order name: CBC with Automated Diff; Complete Time: 21:16 [facility] 01/01 19:16 Order name: Liver (Hepatic) Function; Complete Time: 21:16 [facility] 01/01 19:46 Order name: Urine Dipstick-Ancillary; Complete Time: 21:16 [facility] 01/01 20:49 Order name: SARS-COV-2 RT PCR; Complete Time: 21:16 [facility] 01/01 19:16 Order name: IV Saline Lock; Complete Time: 20:15 01/01 19:16 Order name: Labs collected and sent; Complete Time: 20:15 01/01 19:16 Order name: Urine Dipstick-Ancillary (obtain specimen); Complete Time: 20:15 rn Administered Medications: 19:30 Drug: NS 0.9% 500 ml Route: IV; Rate: bolus; Site: right forearm; rr5 20:30 Follow up: Response: No adverse reaction; IV Status: Completed infusion; IV Intake: rr5 500ml 20:20 Drug: Xopenex (levalbuterol) 1.25 mg Route: Inhalation; rr5 21:20 Follow up: Response: No adverse reaction rr5 21:31 Drug: NS 0.9% 500 ml Route: IV; Rate: bolus; Site: right forearm; rr5 22:30 Follow up: Response: No adverse reaction; IV Status: Completed infusion; IV Intake: rr5 500ml Disposition: 01/01/21 21:21 Discharged to Home. Impression: Malaise and fatigue, Dehydration. - Condition is Stable. - Discharge Instructions: Dehydration, Adult, Fatigue. - Medication Reconciliation Form, Thank You Letter, Antibiotic Education, Prescription Opioid Use form. - Follow up: Private Physician; When: As needed; Reason: Recheck today's complaints, Re-evaluation by your physician. - Problem is new. - Symptoms have improved. Signatures: Dispatcher [employer] EDMS Camille Rivas RN RN iw Nieto, Roman, MD MD rn Roque, Raymond, RN RN rr5 Corrections: (The following items were deleted from the chart) 19:57 19:17 CORONAVIRUS+MR.LAB.BRZ ordered. [facility] 23:44 21:21 01/01/2021 21:21 Discharged to Home. Impression: Malaise and fatigue; iw Dehydration. Condition is Stable. Forms are Medication Reconciliation Form, Thank You Letter, Antibiotic Education, Prescription Opioid Use. Follow up: Private Physician; When: As needed; Reason: Recheck today's complaints, Re-evaluation by your physician. Problem is new. Symptoms have improved. garth
[2021-01-01 23:54] VITALS: BP 125/85; O2SAT 95
== END 2021-01-01 23:44 | disposition home or self-care (01) ==
LOC: ER 19:12
DX: E86.0 Dehydration (principal); R53.81 Other malaise; R53.83 Other fatigue; I10 Essential (primary) hypertension; G30.9 Alzheimer's disease, unspecified; F02.80 Dementia in other diseases classified elsewhere, unspecified severity, without behavioral disturbance, psychotic disturbance, mood disturbance, and anxiety; Z20.822 Contact with and (suspected) exposure to COVID-19; Z88.5 Allergy status to narcotic agent; Z85.43 Personal history of malignant neoplasm of ovary
CPT/HCPCS: 85025; 80048; 36415; 80076; 83690; 84145; 74177; 71045; U0003; Q9967; J7040 ×2; 81003; 81015; 96360; 96361; 99285

== ENCOUNTER 2021-08-11 16:37 | Emergency (ER) | payer OTHER ==
--- OUTSIDE RECORDS SUMMARY | 2021-08-11 16:39 | XMS REPORT | Continuity of Care Document ---
:1935 Author Organization [facility] t Address [address] [place] [address] Care Team Providers Name Role Phone Corey-Vinnie_A_AH Attending Clinician Unavailable Corey-Normano_A_AH Admitting Clinician Unavailable Payers Payer Name Policy Type Policy Number Effective Date Expiration Date Shani hu [facility] - [id number] 2019 [employer] 00:00:00 (MEDICARE REPLACEMENT/ADVANT AGE - HMO) Problems Condition Condition Condition Status Onset Resolution Last Treating Co mments Source Name Details Category Date Date Treatment Clinician Date Dementia Dementia Problem Active [facility] -08 Family 00:00: Practic 00 e Major Major Problem Active [facility] depressive Depressive -08 Fa dylon disorder Disorder 00:00: Practi c 00 e Hypertensi Hypertensi Problem Active [facility] -08 Family disorder Disorder 00:00: Practi c 00 e Chronic Chronic Problem Active [facility] obstructiv Obstructiv -08 [facility] e lung e Lung 00:00: Practic disease Disease 00 e At risk At Risk Problem Active [facility] for falls for Falls 08 Fami ly 00:00: Practic 00 e Allergies, Adverse Reactions, Alerts This patient has no known allergies or adverse reactions. Social History Smoking Status Start Date Stop Date Source Former [facility] Medications Ordered Filled Start Stop Current Ordering Indication Dosage Frequency Signature Comments Components Source Medication Medication Date Date Medication? Clinician (SIG) Name Name albuterol albuterol No albuterol [facility] sulfate 2.5 sulfate 2.5 sulfate Family mg/3 [...] SHORTNESS OF BREATH albuterol albuterol No albuterol [place] sulfate HFA sulfate HFA sulfate Family 90 90 HFA 90 Practic mcg/actuati mcg/actuati mcg/actuat e on aerosol on aerosol ion inhaler USE inhaler USE aerosol 1 2 PUFFS 1 2 PUFFS inhaler EVERY 4 6 EVERY 4 6 USE 1 2 HOURS HOURS PUFFS NEEDED NEEDED EVERY 4 6 HOURS NEEDED bupropion bupropion No bupropion [facility] HCl 100 mg HCl 100 mg HCl 100 mg Family tablet TAKE tablet TAKE tablet Practic 1 TABLET BY 1 TABLET BY TAKE 1 e MOUTH ONCE MOUTH ONCE TABLET BY A DAY A DAY MOUTH ONCE A DAY carvedilol carvedilol No carvedilol [facility] 3.125 mg 3.125 mg 3.125 mg Fam marilia tablet TAKE tablet TAKE tablet Practic 1 TABLET BY 1 TABLET BY TAKE 1 e MOUTH WITH MOUTH WITH TABLET BY FOOD TWICE FOOD TWICE MOUTH A DAY A DAY WITH FOOD TWICE A DAY citalopram citalopram No citalopram [facility] 40 mg 40 mg 40 mg Family tablet TAKE tablet TAKE tablet Practic 1 TABLET BY 1 TABLET BY TAKE 1 e MOUTH EVERY MOUTH EVERY TABLET BY DAY DAY MOUTH EVERY DAY clopidogrel clopidogrel No clopidogre [facility] 75 mg 75 mg l 75 mg Family tablet TAKE tablet TAKE tablet Practic 1 TABLET BY 1 TABLET BY TAKE 1 e MOUTH ONCE MOUTH ONCE TABLET BY A DAY A DAY MOUTH ONCE A DAY donepezil donepezil No donepezil [facility] 10 mg 10 mg 10 mg Family tablet TAKE tablet TAKE tablet Practic 1 TABLET BY 1 TABLET BY TAKE 1 e MOUTH AT MOUTH AT TABLET BY BEDTIME BEDTIME MOUTH AT BEDTIME esomeprazol esomeprazol No esomeprazo [facility] e magnesium e magnesium le F amily 40 mg 40 mg magnesium Practic capsule,del capsule,del 40 mg e ayed ayed capsule,de release release layed release metoprolol metoprolol No metoprolol [facility] tartrate 25 tartrate 25 tartrate Family mg tablet mg tablet 25 mg Prac tic TAKE 1 TAKE 1 tablet e (25MG) (25MG) TAKE 1 TABLET BY TABLET BY (25MG) MOUTH MOUTH TABLET BY TWICE A DAY TWICE A DAY MOUTH AT 6AM AND AT 6AM AND TWICE A 6PM 6PM DAY AT 6AM AND 6PM Symbicort Symbicort No Symbicort [place] 160 mcg-4.5 160 mcg-4.5 160 F amily mcg/actuati mcg/actuati mcg-4.5 Practic on HFA on HFA mcg/actuat e aerosol aerosol ion HFA inhaler USE inhaler USE aerosol 2 PUFFS 2 PUFFS inhaler TWICE A DAY TWICE A DAY USE 2 INHALATION INHALATION PUFFS TWICE A DAY INHALATION trazodone trazodone No trazodone [facility] 50 mg 50 mg 50 mg Family [...] Planned Activity Planned Date Details Comments Source Instructions [facility] Encounters Start End Encounter Admission Attending Care Care Encounter Source Date/Time Date/Time Type Type Clinicians Facility Department ID 2021-08-01 2021-08-01 ambulatory [facility] [id number] GENNA Loza 00:00:00 00:00:00 [facility] 2021-02-28 2021-02-28 Outpatient [facility] [id number] GENNA Loza 00:00:00 00[facility]00[facility] 2021-02-26 2021-02-26 Outpatient [facility] [id number] [facility] 2021-01-03 2021-01-03 Outpatient Corey-Mbspeedyo [facility]FP [facility]FP [phone] [facility] 09:07:00 09:07:00 _A_AH [id number] Family Practic e 2021-01-03 2021-01-03 Outpatient Corey-Mbayo [facility]FP [phone] [facility] 09:06:00 09:06:00 _A_AH [id number] Family Practic e 2020-12-26 2020-12-26 Outpatient Corey-Mbayo VFP VFP [phone] [facility] 01:27:00 01:27:00 _A_AH [id number] Family Practic e 2020-12-14 2020-12-14 Outpatient Corey-Mbayo VFP VFP [phone] [facility] 05:38:00 05:38:00 _A_AH [id number] Family Practic e 2020-12-13 2020-12-13 [place] [facility]FP [place] - [id number] [facility] Fam marilia rushing PROPERTY MASTER: Medical - Practi c [email or web address], [place] [address], [place] [address] , Ph. 2020-10-17 2020-10-17 Outpatient [facility] [id number] [facility] 2020-09-20 2020-09-20 Outpatient [facility] [id number] [facility] 2020-09-05 2020-09-05 Out[facility] [id number] [facility] 2020-08-17 2020-08-17 Outpatient [facility] [id number] [facility] 2020-07-17 2020-07-17 Outpatient [facility] [id number] [facility] 2020-07-10 2020-07-10 Outpatient [facility] [id number] [facility] 2020-07-09 2020-07-09 Outpatient [facility] [id number] [facility] 2020-07-07 2020-07-07 Outpatient [facility] [id number] [facility] 2019-12-14 2019-12-14 Outpatient Corey-Mbayo VFP [facility]FP [phone] [facility] 04:28:00 04:28:00 _A_AH [id number] Family Practic e 2019-12-14 2019-12-14 Outpatient Corey-Mbayo VFP [facility]FP [phone] [facility] 04:28:00 04:28:00 _A_AH [id number] Family Practic e 2019-12-07 2019-12-07 Outpatient Corey-Mbayo [facility]FP [facility] [phone] [facility] 10:24:00 10:24:00 _A_AH [id number] Family Practic e Results This patient has no known results.
[2021-08-11 17:50] LABS: Absolute Lymphocytes (CBC) 0.9 K/uL (0.7-4.9); Basophils % 0.4 % (0-1.3); Hematocrit 35.9 % (36.0-45.0); Lymphocytes % 10.2 % (15.3-44.8); MPV 7.3 fL (7.6-11.3)
[2021-08-11 18:01] LABS: Albumin 3.2 g/dL (3.4-5.0); Bilirubin Total 0.8 mg/dL (0.2-1.0); Potassium 4.1 mmol/L (3.5-5.1)
[2021-08-11] MEDS ORDERED: NA CHLORIDE 0.9% 500 ML ONE (18:41)
--- NOTE | 2021-08-11 18:51 | RAD REPORT ---
EXAM DESCRIPTION: CTSpine Lumbar Wo Con08/11/2021 6:35 pm CLINICAL HISTORY: Back injury with back pain status post fall COMPARISON: 2019 x-ray TECHNIQUE: Computed axial tomography lumbar spine was obtained with coronal and sagittal reconstruct ion. All CT scans are performed using dose optimization technique as appropriate and may include automated exposure control or mA/KV adjustment according to patient size. FINDINGS: No fracture seen. Mild chronic anterior subluxation of L3 on L4. 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 IMPRESSION: Negative for a lumbar fracture. Moderate to marked central spinal stenosis
--- NOTE | 2021-08-11 18:51 | RAD REPORT ---
EXAM DESCRIPTION: CT - Pelvis Wo Cont - 08/11/2021 6:20 pm CLINICAL HISTORY: Left hip pain status post fall COMPARISON: None. TECHNIQUE: Computed axial tomography of the pelvis was obtained. Coronal and sagittal reconstruction performed All CT scans are performed using dose optimization technique as appropriate and may include automated exposure control or mA/KV adjustment according to patient size. FINDINGS: Avulsion fracture greater trochanter left femur. No dislocation No significant joint effusion IMPRESSION: Avulsion fracture greater trochanter left femur
--- NOTE | 2021-08-11 20:11 | EDPHYS ---
Physician Documentation [facility] Name: Ellie Barnhart Age: 86 yrs Sex: Female : 1935 Arrival Date: 08/11/2021 Time: 16:44 Bed 19 Private MD: ED Physician Joseph Ambrose HPI: 08/11 17:22 This 86 yrs old Female presents to ER via EMS with complaints of Fall Injury. pm1 17:22 Details of fall: The patient fell from an upright position, while walking. Onset: The pm1 symptoms/episode began/occurred yesterday. Associated injuries: The patient sustained injury to the low back, pain, left hip. Severity of symptoms: in the emergency department the symptoms are unchanged. The patient has not experienced similar symptoms in the past. The patient has not recently seen a physician. Historical: - Allergies: 16:45 Codeine; ss - PMHx: 16:45 Alzheimers; ataxic gait; COPD; Dementia; Depression; Hyperlipidemia; Hypertension; ss ovarian cancer; - Immunization history:: unknown. - Social history:: Smoking status: unknown. - Unable to obtain history due to: baseline dementia. ROS: 17:22 Constitutional: Negative for fever, chills, and weight loss, Cardiovascular: Negative pm1 for chest pain, palpitations, and edema, Respiratory: Negative for shortness of breath, cough, wheezing, and pleuritic chest pain, Abdomen/GI: Negative for abdominal pain, nausea, vomiting, diarrhea, and constipation. 17:22 Skin: Negative for injury, rash, and discoloration, Neuro: Negative for headache, weakness, numbness, tingling, and seizure. 17:22 Back: Positive for pain at rest, pain with movement, of the low back area. 17:22 MS/extremity: Positive for pain, of the left hip, Negative for decreased range of motion, deformity. 17:22 All other systems are negative. Exam: 17:22 Constitutional: This is a well developed, well nourished patient who is awake, alert, pm1 and in no acute distress. Head/Face: Normocephalic, atraumatic. 17:22 Back: No spinal tenderness. No costovertebral tenderness. Full range of motion. Skin: Warm, dry with normal turgor. Normal color with no rashes, no lesions, and no evidence of cellulitis. 17:22 Eyes: Exam is negative for acute changes, Extraocular movements: no acute changes. 17:22 ENT: Exam is negative for acute changes, Mouth: Lips: normal, moist, Oral mucosa: normal, pink and intact, moist. 17:22 Cardiovascular: Exam negative for acute changes, Rate: normal, Rhythm: regular, Pulses: no pulse deficits are appreciated, Heart sounds: normal, Edema: is not appreciated. 17:22 Respiratory: Exam negative for acute changes, respiratory distress, shortness of breath, Breath sounds: are clear throughout. 17:22 Abdomen/GI: Exam negative for acute changes, Inspection: abdomen appears normal, Palpation: abdomen is soft and non-tender, in all quadrants. 17:22 Musculoskeletal/extremity: Extremities: grossly normal except: noted in the left hip: tenderness, There is no evidence of External rotation and shortening. 17:22 Neuro: Exam negative for acute changes, Orientation: is normal, Mentation: is normal, Motor: is normal, moves all fours. Vital Signs: 17:00 BP 149 / 61; Pulse 100; Resp 20 S; Pulse Ox 97% ; jg9 17:30 BP 131 / 88; Pulse 96; Resp 20 S; Pulse Ox 97% on R/A; jg9 18:00 BP 118 / 75; Pulse 98; Resp 20 S; Pulse Ox 94% on R/A; jg9 MDM: 17:08 Patient medically screened. pm1 19:01 Data reviewed: vital signs. Data interpreted: Pulse oximetry: on room air is 97 %. pm1 Interpretation: normal. 19:08 Physician consultation: Raymond Renteria MD unable to leave message, mailbox is full. pm1 19:47 Physician consultation: Andrea Corrales is not on-call but returned pm1 phone call for consultation. Patient can be discharged home since no surgical intervention required. CT pelvis shows avulsion fracture of left greater trochanter. No intratrochanteric fracture present. Patient can be discharged home with walker. He is currently out of town and will be available for office visit on . 19:55 Counseling: I had a detailed discussion with the patient and/or guardian regarding: the pm1 historical points, exam findings, and any diagnostic results supporting the discharge/admit diagnosis, lab results, radiology results, the need for outpatient follow up, a orthopedic surgeon, to return to the emergency department if symptoms worsen or persist or if there are any questions or concerns that arise at home. 08/11 17:22 Order name: CBC with Diff; Complete Time: 18:00 pm1 08/11 17:22 Order name: CMP; Complete Time: 18:08 pm1 08/11 17:22 Order name: Pelvis Wo Cont CT; Complete Time: 18:53 pm1 08/11 17:22 Order name: CT Lumbar Spine Wo Con; Complete Time: 18:53 pm1 08/11 17:22 Order name: EKG; Complete Time: 17:22 pm1 08/11 17:22 Order name: EKG - Nurse/Tech; Complete Time: 18:38 pm1 08/11 17:22 Order name: IV Saline Lock; Complete Time: 17:40 pm1 08/11 17:22 Order name: Urine Dipstick-Ancillary (obtain specimen) pm1 08/11 19:51 Order name: Misc. Order: Walker pm1 Administered Medications: 19:00 Drug: NS 0.9% 500 ml Route: IV; Rate: bolus; Site: right forearm; jg9 Disposition: 08/12 08:01 Co-signature as Attending Physician, Joseph Ambrose MD I agree with the assessment and rn plan of care. Attestation: The patient's history, exam findings, diagnostics, and a summary of any interventions or procedures was reviewed in detail with Tal Dueñas NP. Disposition Summary: 08/11/21 20:10 Discharge Ordered Location: Home pm1 Problem: new pm1 Symptoms: have improved pm1 Condition: Stable pm1 Diagnosis - Avulsion fracture greater trochanter left femur pm1 Followup: pm1 - With: Emergency Department - When: As needed - Reason: Worsening of condition Followup: pm1 - With: Andrea Corrales MD - When: 5 - 6 days - Reason: Recheck today's complaints, Continuance of care, Re-evaluation by your physician Discharge Instructions: - Discharge Summary Sheet pm1 - How to Use a Walker pm1 Forms: - Medication Reconciliation Form pm1 - Thank You Letter pm1 - Antibiotic Education pm1 - Prescription Opioid Use pm1 Prescriptions: - Tylenol 325 mg Oral tablet - take 2 tablet by ORAL route every 6 hours As needed as needed; 30 tablet; pm1 Refills: 0, Product Selection Permitted Signatures: Dispatcher [employer] Joseph Olson MD MD rn Smirch, Shelby, RN RN ss Tal Dueñas, RESIDENTIAL TREATMENT COUNSELOR RESIDENTIAL TREATMENT COUNSELOR pm1 Suzie Choe9
--- NOTE | 2021-08-11 20:11 | ER ---
Nurse's Notes [facility] Name: Ellie Barnhart Age: 86 yrs Sex: Female : 1935 Arrival Date: 08/11/2021 Time: 16:44 Bed 19 Private MD: Diagnosis: Avulsion fracture greater trochanter left femur Presentation: 08/11 16:46 Chief complaint: Patient states: Fall from standing yesterday. Pt had no complaints ss initially, but states that her back is hurting her all over. Pt has a hx of chronic back. Coronavirus screen: Client denies travel out of the [place] in the last 14 days. Ebola Screen: Patient denies exposure to infectious person. Patient denies travel to an Ebola-affected area in the 21 days before illness onset. Initial Sepsis Screen: Does the patient meet any 2 criteria? No. Patient's initial sepsis screen is negative. Does the patient have a suspected source of infection? No. Patient's initial sepsis screen is negative. Risk Assessment: Do you want to hurt yourself or someone else? Patient reports no desire to harm self or others. Onset of symptoms was August 10, 2021. 16:46 Method Of Arrival: EMS: [facility] ss 16:46 Acuity: HATTIE 3 ss 16:48 Care prior to arrival: IV initiated. 20 GA, in the right antecubital area, Glucose ss check: 114. Triage Assessment: 19:00 General: Appears uncomfortable. General: Appears. Pain:. Pain: Complains of pain in mr2 right hip Pain does not radiate. Pain currently is 6 out of 10 on a pain scale. Historical: - Allergies: 16:45 Codeine; ss - PMHx: 16:45 Alzheimers; ataxic gait; COPD; Dementia; Depression; Hyperlipidemia; Hypertension; ss ovarian cancer; - Immunization history:: unknown. - Social history:: Smoking status: unknown. - Unable to obtain history due to: baseline dementia. Screenin:45 Abuse screen: Denies threats or abuse. Denies injuries from another. Nutritional jg9 screening: No deficits noted. Tuberculosis screening: No symptoms or risk factors identified. Fall Risk Fall in past 12 months (25 points). Secondary diagnosis (15 points) IV access (20 points). Ambulatory Aid- None/Bed Rest/Nurse Assist (0 pts). Gait- Normal/Bed Rest/Wheelchair (0 pts) Mental Status- Overestimates/Forgets Limitations (15 pts.). Assessment: 16:53 General: Appears in no apparent distress. Behavior is calm, cooperative. Pain: jg9 Complains of pain in back and left leg-pain reported to left leg not specified, lower back pain reported by ems-patient fell yesterday. Vital Signs: 17:00 BP 149 / 61; Pulse 100; Resp 20 S; Pulse Ox 97% ; jg9 17:30 BP 131 / 88; Pulse 96; Resp 20 S; Pulse Ox 97% on R/A; jg9 18:00 BP 118 / 75; Pulse 98; Resp 20 S; Pulse Ox 94% on R/A; jg9 ED Course: 16:44 Patient arrived in ED. ss 16:46 Arm band placed on right wrist. ss 16:48 Triage completed. ss 16:55 Maintain EMS IV. Dressing intact. Good blood return noted. Site clean \T\ dry. Gauge \T\ jg 9 site: 20g R ac. 17:00 Tal Dueñas, ANT is PHCP. pm1 17:00 Joseph Ambrose MD is Attending Physician. pm1 17:47 Patient has correct armband on for positive identification. Bed in low position. Side jg9 rails up X2. Warm blanket given. 18:[address] In Process Unspecified. EDMS 18:20 CT Lumbar Spine Wo Con In Process Unspecified. EDMS 18:55 Straight cath inserted, using sterile technique, 16 Fr. Returned clear yellow urine. jg9 Patient tolerated well. 19:00 No provider procedures requiring assistance completed. IV discontinued. mr2 19:56 Jose Coughlin, ALBARO is Primary Nurse. mr2 20:07 Andrea Corrales MD is Referral Physician. pm1 Administered Medications: 19:00 Drug: NS 0.9% 500 ml Route: IV; Rate: bolus; Site: right forearm; jg9 Outcome: 19:30 Discharged to home via ambulance. mr2 19:30 Condition: stable 19:30 Discharge instructions given to patient, Instructed on discharge instructions, follow up and referral plans. medication usage, Prescriptions given X 1. 20:10 Discharge ordered by . pm1 22:32 Patient left the ED. bb Signatures: Dispatcher [employer] EDMS Valdez, Jennyfer, ALBARO RN bb Soha Quintana, RN RN ss Tal Dueñas, BOOM STICK WORKER BOOM STICK WORKER pm1 Jose Coughlin RN RN mr2 Suzie Choeg9
[2021-08-11 22:40] VITALS: BP 118/75; O2SAT 94
== END 2021-08-11 22:32 | disposition home or self-care (01) ==
LOC: ER 16:37
DX: S72.112A Displaced fracture of greater trochanter of left femur, initial encounter for closed fracture (principal); G30.9 Alzheimer's disease, unspecified; F02.80 Dementia in other diseases classified elsewhere, unspecified severity, without behavioral disturbance, psychotic disturbance, mood disturbance, and anxiety; J44.9 Chronic obstructive pulmonary disease, unspecified; I10 Essential (primary) hypertension; W18.30XA Fall on same level, unspecified, initial encounter; Y92.009 Unspecified place in unspecified non-institutional (private) residence as the place of occurrence of the external cause; Z85.43 Personal history of malignant neoplasm of ovary
CPT/HCPCS: 93005; 85025; 36415; 80053; 72131; 72192; 51702; 99284; J7040